=== PATIENT | male | born 1950 | race Caucasian/White ===

== ENCOUNTER → 2018-03-04 | Outpatient (CLI) | payer MEDICARE ==
--- NOTE | 2018-03-05 08:00 | US ---
EXAMINATION TYPE: US carotid duplex BILAT DATE OF EXAM: 03/04/2018 COMPARISON: NONE CLINICAL HISTORY: I65.29 Enlarged right carotid. EXAM MEASUREMENTS: RIGHT: Peak Systolic Velocity (PSV) cm/sec ----- Right CCA: 143.0 ----- Right ICA: 158.8 ----- Right ECA: 162.8 ICA/CCA ratio: 1.1 RIGHT: End Diastole cm/sec ----- Right CCA: 28.8 ----- Right ICA: 26.8 ----- Right ECA: 22.9 LEFT: Peak Systolic Velocity (PSV) cm/sec ----- Left CCA: 114.3 ----- Left ICA: 102.6 ----- Left ECA: 86.6 ICA/CCA ratio: 0.9 LEFT: End Diastole cm/sec ----- Left CCA: 25.6 ----- Left ICA: 27.0 ----- Left ECA: 27.0 VERTEBRALS (direction of flow): Right Vertebral: Antegrade Left Vertebral: Antegrade Rhythm: Arrhythmia on rt side Right neck palpable is posterior to the carotid , this is an elongated hard mass 0.7 x 3.0 x 0.5 cm and non vascular. This appears subcutaneous and somewhat ill-defined. Consider CT neck with contrast for additional evaluation. Intimal thickening is present bilaterally. IMPRESSION: 1. Elevated velocity right internal carotid artery compatible with some moderate stenosis between 50 and 69%. Correlate with patient's clinical symptoms. 2. The palpable hard mass within the right neck is somewhat subcutaneous and hypoechoic. Additional w orkup with contrast CT neck is recommended. Criteria for Assigning % of Stenosis / Diameter reduction (Estimation based on the indirect measurements of the internal carotid artery velocities (ICA PSV). 1. Normal (no stenosis)=ICA PSV < 125 cm/s: ratio < 2.0: ICA EDV<40 cm/s. 2. Less than 50% stenosis=ICA PSV < 125 cm/s: ratio < 2.0: ICA EDV<40 cm/s. 3. 50 to 69% stenosis=ICA PSV of 125 to 230 cm/s: ration 2.0 ? 4.0: ICA EDV 40-100 cm/s. 4. Greater than 70% stenosis to near occlusion= ICA PSV > 230 cm/s: ratio > 4.0: ICA EDV > 100 cm/s. 5. Near occlusion= ICA PSV velocities may be low or undetectable: variable ratio and ICA EDV. 6. Total occlusion=unable to detect flow.
== END | disposition home or self-care (01) ==
LOC: RADUSWWP 15:32
PROVIDERS: ATTEND Family Medicine
DX: I65.23 Occlusion and stenosis of bilateral carotid arteries (principal)
CPT/HCPCS: 93880

== ENCOUNTER → 2018-03-11 | Outpatient (CLI) | payer MEDICARE ==
--- NOTE | 2018-03-12 07:30 | CT ---
EXAMINATION TYPE: CT soft tissue neck w con DATE OF EXAM: 03/11/2018 HISTORY: Right side neck swelling and pain. COMPARISON: Carotid ultrasound March 04, 2018. CT DLP: 465 mGycm. Automated Exposure Control for Dose Reduction was Utilized. TECHNIQUE: CT scan of the neck is performed with IV Contrast, patient injected with 100ml mL of Isov ue M300, axial images are obtained, coronal and sagittal reformatted images are reviewed. FINDINGS: Airway: There is mild biapical pleural/parenchymal scarring. Parotid/submandibular glands: No gross abnormality seen. Carotid/Vascular Structures: There is mild to moderate calcified plaque bilateral carotid bulbs, righ t greater than left without significant stenosis identified. Osseous Structures: There is slight grade 1 retrolisthesis of C3 on C4 with moderate disc space narro wing. There is mild to moderate disc space narrowing and mild spurring C5-C6 level. Other: There are some scattered subcentimeter lymph nodes throughout the neck bilaterally. No suspici ous greater than 1 cm adenopathy is seen. No suspicious finding identified to correlate to recent ult rasound labeled posterior to carotid. Scanning of the right neck shows no suspicious adenopathy mass or fluid collection. Lesion marked on ultrasound favors reactive lymph node still measuring subcentim eter on short axis. IMPRESSION: No suspicious mass or adenopathy identified.
== END | disposition home or self-care (01) ==
LOC: RADCTMAIN 17:14
PROVIDERS: ATTEND Family Medicine
DX: D11.0 Benign neoplasm of parotid gland (principal)
CPT/HCPCS: 82565; 84520; 70491; 36415; Q9967

== ENCOUNTER → 2018-04-09 | Day surgery (SDC) | payer MEDICARE ==
--- NOTE | 2018-04-09 14:50 | US ---
ULTRASOUND GUIDED FNA RIGHT NECK BIOPSY: CLINICAL HISTORY: Right neck mass FINDINGS: Preliminary imaging demonstrated the finding to represent a thrombosed superficial vein. Case discuss ed with the patient deferred biopsy. IMPRESSION: 1. Findings are compatible with a thrombosed superficial vein. No suspicious mass seen.
== END | disposition home or self-care (01) ==
LOC: RADPROMAIN 12:03
PROVIDERS: ATTEND Otolaryngology
DX: R22.1 Localized swelling, mass and lump, neck (principal)
CPT/HCPCS: 76536

== ENCOUNTER → 2018-07-01 | Outpatient (CLI) | payer MEDICARE ==
[2018-07-01 15:20] LABS: Basophils % (A) 0 %; Eosinophils # (A) 0.2 k/uL (0-0.7); Eosinophils % (A) 3 %; HCT 42.2 % (39.0-53.0); HGB 13.7 gm/dL (13.0-17.5); Lymphocytes # (A) 1.3 k/uL (1.0-4.8); Lymphocytes % (A) 25 %; MCH 29.6 pg (25.0-35.0); MCHC 32.4 g/dL (31.0-37.0); MCV 91.1 fL (80.0-100.0); Mean Platelet Volume 6.7; Monocytes # (A) 0.4 k/uL (0-1.0); Monocytes % (A) 7 %; Neutrophils # (A) 3.2 k/uL (1.3-7.7); Neutrophils % (A) 63 %; Platelet Count 228 k/uL (150-450); RBC 4.63 m/uL (4.30-5.90); RDW 13.4 % (11.5-15.5); WBC 5.1 k/uL (3.8-10.6)
[2018-07-01 15:31] LABS: ALT 27 U/L (21-72); AST 30 U/L (17-59); Blood Urea Nitrogen 19 mg/dL (9-20); Calcium 9.3 mg/dL (8.4-10.2)
[2018-07-01 19:35] LABS: Hepatitis B Surface AB- Quant 3.5 mIU/mL; Hepatitis C IgG Antibody Non-Reactive (Non-Reactive)
== END | disposition home or self-care (01) ==
LOC: LABWHC1 14:24
PROVIDERS: ATTEND Physician Assistant Medical
DX: D86.3 Sarcoidosis of skin (principal)
CPT/HCPCS: 36415; 82164; 82310; 82565; 84450; 84460; 84520; 85025; 86706; 86803; 87340

== ENCOUNTER → 2018-07-01 | Outpatient (CLI) | payer MEDICARE ==
--- NOTE | 2018-07-01 14:33 | XR ---
EXAMINATION TYPE: XR chest 2V DATE OF EXAM: 07/01/2018 COMPARISON: NONE TECHNIQUE: PA and lateral views submitted. HISTORY: Sarcoidosis FINDINGS: The lungs are clear and there is no pneumothorax, pleural effusion, or focal pneumonia. Mild promin ence of the right paratracheal stripe. Biapical pleural thickening. Hypertrophic and degenerative zeeshan nge of the spine. No overt failure. IMPRESSION: 1. No acute process. Right paratracheal stripe thickening can sometimes be associated with adenopathy related to sarcoid correlate clinically.
== END ==
LOC: RADXRMAIN 14:03
PROVIDERS: ATTEND Dermatology MOHS-Micrographic Surgery
DX: D86.3 Sarcoidosis of skin (principal)
CPT/HCPCS: 71046

== ENCOUNTER → 2018-08-05 | Outpatient (CLI) | payer MEDICARE | LOC: LABWHC1 11:28 | PROVIDERS: ATTEND Physician Assistant Medical | DX: D86.3 Sarcoidosis of skin (principal) | CPT/HCPCS: 36415; 82955 ==

== ENCOUNTER → 2018-10-02 | Outpatient (CLI) | payer MEDICARE ==
--- NOTE | 2018-10-02 16:21 | XR ---
Right hand HISTORY: Pain and swelling 3 views of the right hand There is marked arthropathy noted in the right hand. Carpometacarpal joint of the first digit shows h ypertrophic change, remodeling with subchondral sclerosis, marginal spurring. Osteoarthritic change a lso present at the interphalangeal joint of the first digit, metacarpophalangeal joints of the second and third digit with marginal spurring, joint space loss. Bone remodeling present at the radial ulna r joint, distal ulna shows negative variance. The lunate shows remodeling. Mild osteoarthritic change present at the distal interphalangeal joints. Soft tissue swelling is noted. IMPRESSION: Osteoarthritis, soft tissue swelling.
== END | disposition home or self-care (01) ==
LOC: RADXRMAIN 14:48
PROVIDERS: ATTEND Family Medicine
DX: M19.041 Primary osteoarthritis, right hand (principal)

== ENCOUNTER → 2019-02-18 | Outpatient (CLI) | payer MEDICARE ==
[2019-02-18 12:53] LABS: Basophils % (A) 1 %; Eosinophils # (A) 0.1 k/uL (0-0.7); Eosinophils % (A) 1 %; HCT 43.7 % (39.0-53.0); HGB 13.9 gm/dL (13.0-17.5); Lymphocytes # (A) 1.2 k/uL (1.0-4.8); Lymphocytes % (A) 20 %; MCH 28.5 pg (25.0-35.0); MCHC 31.9 g/dL (31.0-37.0); MCV 89.6 fL (80.0-100.0); Mean Platelet Volume 6.4; Monocytes # (A) 0.4 k/uL (0-1.0); Monocytes % (A) 8 %; Neutrophils # (A) 3.9 k/uL (1.3-7.7); Neutrophils % (A) 67 %; Platelet Count 242 k/uL (150-450); RBC 4.88 m/uL (4.30-5.90); RDW 13.3 % (11.5-15.5); WBC 5.8 k/uL (3.8-10.6)
[2019-02-18 16:52] LABS: Hepatitis B Surface AB- Quant 3.5 mIU/mL; Hepatitis C IgG Antibody Non-Reactive (Non-Reactive)
== END | disposition home or self-care (01) ==
LOC: LABWHC1 12:18
PROVIDERS: ATTEND Physician Assistant Medical
DX: D86.3 Sarcoidosis of skin (principal)
CPT/HCPCS: 36415; 82565; 84450; 84460; 84520; 85025; 86706; 86803; 87340

== ENCOUNTER → 2019-10-20 | Outpatient (CLI) | payer MEDICARE ==
[2019-10-20 14:06] LABS: Basophils # (A) 0.1 k/uL (0-0.2); Basophils % (A) 2 %; Eosinophils # (A) 0.1 k/uL (0-0.7); Eosinophils % (A) 1 %; HCT 47.6 % (39.0-53.0); HGB 15.2 gm/dL (13.0-17.5); Lymphocytes # (A) 1.4 k/uL (1.0-4.8); Lymphocytes % (A) 22 %; MCH 30.7 pg (25.0-35.0); MCHC 31.8 g/dL (31.0-37.0); MCV 96.4 fL (80.0-100.0); Mean Platelet Volume 7.8; Monocytes # (A) 0.4 k/uL (0-1.0); Monocytes % (A) 6 %; Neutrophils # (A) 4.2 k/uL (1.3-7.7); Neutrophils % (A) 66 %; Platelet Count 240 k/uL (150-450); RBC 4.94 m/uL (4.30-5.90); WBC 6.4 k/uL (3.8-10.6)
[2019-10-20 18:38] LABS: African American GFR (CKD) 88.6 (60.0-200.0); Non-African American GFR(CKD) 76.5 (60.0-200.0)
== END | disposition home or self-care (01) ==
LOC: LABWHC1 12:43
PROVIDERS: ATTEND Physician Assistant Medical
DX: D86.3 Sarcoidosis of skin (principal)
CPT/HCPCS: 36415; 82565; 84450; 84460; 84520; 85025

== ENCOUNTER 2020-06-28 17:26 | Emergency (ER) | payer MEDICARE ==
[2020-06-28 17:55] VITALS: RESP 18; TEMP 98.2
[2020-06-28] MEDS ORDERED: WATER FOR IRRIG, STERILE 1,000 ML BTL IRRIGATION ONE (19:17)
[2020-06-28] MEDS ORDERED: BACITRACIN OINT 1 EACH PACKET TOPICAL ONE (19:17)
[2020-06-28] MEDS ORDERED: DIPH,PERTUS(ACELL)TETVAC-LF 0.5 ML VIAL IM ONE (19:17)
[2020-06-28] MEDS ORDERED: CEPHALEXIN 500MG STARTER PACK 4 CAP BTL PO STA (19:20)
--- NOTE | 2020-06-28 19:22 | ED ---
Upper Extremity HPI - General Chief Complaint: Extremity Injury, Upper Stated Complaint: Hand Lac Time Seen by Provider: 06/28/20 19:09 Source: patient Mode of arrival: ambulatory Limitations: no limitations - History of Present Illness Initial Comments: 69-year-old male patient presents to the emergency department for evaluation of wound to the right hand. Patient states that he was working outside with gloves on today and was pounding metal rods into the ground. Patient states when he took his clothes off he noticed that he had a puncture wound to the right hand. States that the area was bleeding initially when he was able to get it to stop. He denies any significant pain or discomfort. States that he has a history of arthritis and neuropathy he generally has numbness and tingling to the hand this is not worse. He denies any other injuries. He is unsure when his last tetanus vaccine was given. States this occurred a little over 3 hours ago. Patient denies any headache, neck pain, back pain, chest pain, shortness of breath, dizziness, weakness, abdominal pain, nausea, vomiting, or difficulties with bowel movements or urination. - Related Data Home Medications Medication Instructions Recorded Confirmed Aspirin PO DAILY 04/07/18 Previous Rx's Medication Instructions Recorded Cephalexin [Keflex] 500 mg PO BID #10 cap 06/28/20 Allergies Allergy/AdvReac Type Severity Reaction Status Date / Time No Known Allergies Allergy Verified 06/28/20 17:51 Review of Systems ROS Statement: Those systems with pertinent positive or pertinent negative responses have been documented in the HPI. ROS Other: All systems not noted in ROS Statement are negative. Past Medical History Past Medical History: Osteoarthritis (OA) Additional Past Medical History / Comment(s): sarcoidosis History of Any Multi-Drug Resistant Organisms: None Reported Past Surgical History: Hernia Repair Additional Past Surgical History / Comment(s): Bilateral Hernia Repair Past Anesthesia/Blood Transfusion Reactions: No Reported Reaction Past Psychological History: No Psychological Hx Reported Smoking Status: Current every day smoker Past Alcohol Use History: None Reported Past Drug Use History: None Reported - Past Family History Father Family Medical History: Congestive Heart Failure (CHF) Mother Family Medical History: Congestive Heart Failure (CHF) General Exam Limitations: no limitations General appearance: alert, in no apparent distress, other (This is a well- developed, well-nourished adult male patient in no acute distress. Vital signs upon presentation temperature 98.2F, pulse 80, respirations 18, blood pressure 122/75, pulse ox 100% on room air.) Respiratory exam: Present: normal lung sounds bilaterally. Absent: respiratory distress, wheezes, rales, rhonchi, stridor Cardiovascular Exam: Present: regular rate, normal rhythm, normal heart sounds. Absent: systolic murmur, diastolic murmur, rubs, gallop, clicks Extremities exam: Present: full ROM, normal capillary refill, other (There is a 1 cm puncture wound noted to the webbing between the right thumb and forefinger. No active bleeding noted. Skin is otherwise pink, warm, dry. Cap refills less than 3 seconds. Radial pulses 2+ and equal bilaterally.). Absent: normal inspection, tenderness, pedal edema, joint swelling, calf tenderness Neurological exam: Present: alert, oriented X3, CN II-XII intact Psychiatric exam: Present: normal affect, normal mood Skin exam: Present: warm, dry, intact, normal color. Absent: rash Course Vital Signs 06/28/20 06/28/20 17:53 20:34 Temperature 98.2 F 98.2 F Pulse Rate 80 76 Respiratory 18 18 Rate Blood Pressure 122/75 121/88 O2 Sat by Pulse 100 100 Oximetry Procedures - Laceration Laceration #1 Consent Obtained: verbal consent Indication: other (Puncture wound) Size (cm): 1 Pre-repair: irrigated extensively Patient Tolerated Procedure: well, no complications Medical Decision Making - Medical Decision Making 69-year-old male patient presented to the emergency department today for evaluation of wound to the right hand. Physical examination revealed a puncture wound to the webbing between the thumb and forefinger on the right hand. X-ray was obtained and showed no evidence for foreign body or bony abnormality. Wound was irrigated. Given the nature of the puncture wound plus history of sarcoidosis with the daily methotrexate we will leave the wound open for secondary healing. He'll be started on Keflex. He was given a tetanus vaccine. He is instructed to follow-up for further evaluation in 1-2 days with his primary care physician. Return parameters including signs or symptoms of infection were discussed in detail. He verbalizes understanding and agrees with this plan. - Radiology Data Radiology results: report reviewed, image reviewed 4 views of the right hand are obtained. Report was reviewed in its entirety. Impression by Dr. Parham shows soft tissue air consistent with laceration. Osteoarthritis as above. No fracture seen. Disposition Clinical Impression: Puncture wound of right hand Disposition: HOME SELF-CARE Condition: Good Instructions (If sedation given, give patient instructions): Puncture Wound (ED) Additional Instructions: Keep area clean and dry. Keep covered. Rest hand for the next 7-10 days to aid with healing. Complete antibiotic prescription and full. Follow-up through primary care physician for recheck in 1-2 days. Return to the emergency department immediately for any new, worsening, or concerning symptoms. Prescriptions: Cephalexin [Keflex] 500 mg PO BID #10 cap Is patient prescribed a controlled substance at d/c from ED?: No Referrals: Sean Garcia DO [Primary Care Provider] - 1-2 days Time of Disposition: 20:10
[2020-06-28] MEDS: LIDOCAINE 1% INJ 10MG/ML (20 ML MDV) SQ ONE ×2 (19:26→20:29)
--- NOTE | 2020-06-28 19:53 | XR ---
EXAMINATION TYPE: XR hand complete RT DATE OF EXAM: 06/28/2020 COMPARISON: 10/02/2018 HISTORY: Laceration between first and second digit TECHNIQUE: 4 views FINDINGS: There is narrowing of the second and third MP joint spaces with spurring. There is moderate narrowing and spurring at the first carpometacarpal joint. There is soft tissue air around the first metacarpal. I see no fracture nor dislocation. There are no erosions. IMPRESSION: Soft tissue air consistent with laceration. Osteoarthritis as above. No fracture seen.
[2020-06-28 20:35] VITALS: BP 121/88; PULSE 76
== END 2020-06-28 20:36 | disposition home or self-care (01) ==
LOC: EC 17:26
DX: S61.411A Laceration without foreign body of right hand, initial encounter (principal); S61.431A Puncture wound without foreign body of right hand, initial encounter; D86.9 Sarcoidosis, unspecified; Z23 Encounter for immunization; F17.200 Nicotine dependence, unspecified, uncomplicated; W26.8XXA Contact with other sharp object(s), not elsewhere classified, initial encounter; Y93.89 Activity, other specified; Y92.009 Unspecified place in unspecified non-institutional (private) residence as the place of occurrence of the external cause
CPT/HCPCS: 12001; 90471; 90715; 99283

== ENCOUNTER → 2020-07-15 | Outpatient (CLI) | payer MEDICARE ==
[2020-07-15 15:31] LABS: Basophils % (A) 1 %; Eosinophils # (A) 0.1 k/uL (0-0.7); Eosinophils % (A) 1 %; HGB 13.4 gm/dL (13.0-17.5); Lymphocytes # (A) 1.2 k/uL (1.0-4.8); Lymphocytes % (A) 18 %; MCH 31.7 pg (25.0-35.0); Mean Platelet Volume 6.9; Monocytes # (A) 0.5 k/uL (0-1.0); Monocytes % (A) 8 %; Neutrophils # (A) 4.6 k/uL (1.3-7.7); Neutrophils % (A) 70 %; Platelet Count 211 k/uL (150-450); RBC 4.24 m/uL (4.30-5.90); RDW 14.4 % (11.5-15.5); WBC 6.5 k/uL (3.8-10.6)
[2020-07-16 01:18] LABS: Non-African American GFR(CKD) 75.9 (60.0-200.0)
== END | disposition home or self-care (01) ==
LOC: LABWHC1 13:43
PROVIDERS: ATTEND Physician Assistant Medical
DX: D86.3 Sarcoidosis of skin (principal)
CPT/HCPCS: 36415; 82565; 84450; 84460; 84520; 85025

== ENCOUNTER 2020-12-31 | Emergency (ER) | payer MEDICARE ==
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
== END 2020-12-31 20:55 | disposition home or self-care (01) ==
CPT/HCPCS: 99283

== ENCOUNTER → 2021-03-06 | Outpatient (CLI) | payer MEDICARE ==
--- NOTE | 2021-03-07 08:34 | US ---
EXAMINATION TYPE: US venous doppler duplex LE LT DATE OF EXAM: 03/06/2021 4:22 PM COMPARISON: NONE CLINICAL HISTORY: M79.662 Pain in left lower leg. left knee pain, hot and swollen foot SIDE PERFORMED: Left TECHNIQUE: The lower extremity deep venous system is examined utilizing real time linear array sonog jorge with graded compression, doppler sonography and color-flow sonography. VESSELS IMAGED: Common Femoral Vein Deep Femoral Vein Greater Saphenous Vein * Femoral Vein Popliteal Vein Proximal Calf Veins (* superficial vessels) Left Leg: Negative for DVT 4.2cm complex popliteal fossa cyst seen IMPRESSION: Left Leg: Negative for DVT 4.2cm complex popliteal fossa cyst seen
== END | disposition home or self-care (01) ==
LOC: RADUSWWP 16:03
PROVIDERS: ATTEND Family Medicine
DX: M71.22 Synovial cyst of popliteal space [Baker], left knee (principal); M79.662 Pain in left lower leg

== ENCOUNTER → 2021-06-03 | Outpatient (CLI) | payer BC, MEDICARE ==
--- NOTE | 2021-06-03 18:07 | MR ---
EXAMINATION TYPE: MR knee LT wo con DATE OF EXAM: 06/03/2021 COMPARISON: None HISTORY: Left knee pain. Multiplanar multiecho imaging of the left knee without contrast. There is moderate knee joint effusion. The anterior and posterior cruciate ligaments are intact. The collateral ligaments appear intact. There is 4 x 1.5 cm popliteal cyst. There is horizontal tear through the posterior horn medial meniscus extending to the inferior surface . There is small horizontal tear also the anterior horn medial meniscus. There is horizontal tear through the posterior horn of the lateral meniscus. The patella is intact. J oint spaces are fairly normal. There is some mild edema in the medial femoral condyle on the posterio r medial aspect. This is consistent with a mild bone bruise. I see no fracture line. There is also in creased signal in the intercondylar proximal tibia consistent with bone bruise that measures 1.5 cm. IMPRESSION: Horizontal tears of the medial and lateral menisci in the posterior horns. Moderate knee joint effusion. Popliteal cyst. Bone bruise involving the intercondylar proximal tibia and also the medial femoral condyle. No fractu re seen.
== END | disposition home or self-care (01) ==
LOC: RADMRIMAIN 08:57
PROVIDERS: ATTEND Orthopaedic Surgery
DX: M23.322 Other meniscus derangements, posterior horn of medial meniscus, left knee (principal); M23.352 Other meniscus derangements, posterior horn of lateral meniscus, left knee; M71.22 Synovial cyst of popliteal space [Baker], left knee; S80.02XA Contusion of left knee, initial encounter

== ENCOUNTER → 2021-08-16 | Outpatient (CLI) | payer MEDICARE ==
[2021-08-16 12:10] LABS: African American GFR (CKD) >90 (>60 ml/min/1.73 sqM); Blood Urea Nitrogen 21 mg/dL (9-20); Non-African American GFR(CKD) 83 (>60 ml/min/1.73 sqM)
--- NOTE | 2021-08-16 12:46 | CT ---
EXAMINATION TYPE: CT chest w con DATE OF EXAM: 08/16/2021 COMPARISON: none HISTORY: sarcoidosis CT DLP: 594 mGycm Automated exposure control for dose reduction was used. CONTRAST: CT scan of the chest is performed with IV Contrast, patient injected with 100 mL of Isovue 300. FINDINGS: LUNGS: The lungs are grossly clear, there is no concerning parenchymal mass or nodule identified. T here is no pleural effusion or pneumothorax seen. The tracheobronchial tree is patent. MEDIASTINUM: There are no greater than 1 cm hilar or mediastinal lymph nodes. No pericardial effusi on is seen. Thoracic aorta is of normal caliber. The heart is not enlarged. UPPER ABDOMEN: No significant abnormality appreciated. OTHER: No additional significant abnormality is seen. IMPRESSION: Unremarkable study
== END | disposition home or self-care (01) ==
LOC: RADCTMAIN 11:05
PROVIDERS: ATTEND Psychiatry & Neurology Neurology
DX: D86.89 Sarcoidosis of other sites (principal)
CPT/HCPCS: 82565; 84520; 71260; Q9967

== ENCOUNTER 2021-08-24 10:13 | Day surgery (SDC) | payer MEDICARE ==
[2021-08-22 11:03] VITALS: BMI 23.1
--- NOTE | 2021-08-23 17:34 | HP ---
HISTORY AND PHYSICAL DATE OF SURGERY: 08/24/2021 Bc Frias is a 71-year-old patient seen with progressive left knee pain. We discussed options for treatment. He elected to proceed with left knee arthroscopy. Consent was obtained. Clearance was provided by Dr. Arzate. PAST MEDICAL HISTORY: Atrial fibrillation, hypertension, anxiety. PAST SURGICAL HISTORY: Cataract surgery, herniorrhaphy. DAILY MEDICATIONS: Methotrexate, metoprolol, Eliquis. ALLERGIES: NONE. SOCIAL HISTORY: He denies tobacco use. PHYSICAL EVALUATION OF THE LEFT KNEE: Range of motion is negative 2/3 to 115 degrees. Moderate effusion. Tenderness along the lateral joint line. Positive lateral Sharla's. Plus one Laci. Otherwise ligaments stable. Distal neurovascular exam is intact. Hip rotation without pain. Left knee radiographs revealed mild osteoarthritis. MRI left knee revealed medial and lateral meniscal tear as well as an effusion. IMPRESSION: 1. Internal derangement of left knee with medial and lateral meniscal tears. 2. Hypertension. 3. Atrial fibrillation. PLAN: Left knee arthroscopy with partial meniscectomy and debridement. MMODL / IJN: [id number] /
[~2021-08-24 10:13] MED LIST: HYDROmorphone 0.5 MG/0.5 ML SYRINGE IVP PRN; LACTATED RINGERS 1,000 ML IV SCH; LIDOCAINE 1% (10MG/ML) FOR IV START INTRADERMA PRN; ONDANSETRON 4 MG/2 ML VIAL IVP ONE; ONDANSETRON 4 MG/2 ML VIAL IVP PRN
[2021-08-24 10:47] VITALS: RESP 16
[2021-08-24] MEDS ORDERED: DEXAMETHASONE SOD PHOSPHATE 4 MG/ML 1 ML VIAL PO ONE (11:03)
[2021-08-24] MEDS ORDERED: ONDANSETRON 4 MG/2 ML VIAL IVP ONE (11:04)
[2021-08-24] MEDS ORDERED: MIDAZOLAM 2 MG/2 ML VIAL ONE (11:27)
[2021-08-24] MEDS ORDERED: LIDOCAINE 1% INJ 10MG/ML (20 ML MDV) ONE (11:27)
[2021-08-24] MEDS ORDERED: PHENYLEPHRINE-0.9% NACL SYG 1,000 MCG/10 ML SYRINGE ONE (11:27)
[2021-08-24] MEDS ORDERED: SUCCINYLCHOLINE CHLORIDE 100 MG/5 ML SYR IV ONE (11:27)
[2021-08-24] MEDS ORDERED: .fentaNYL (PF) 50 MCG/ML 2 ML AMP ONE (11:27)
[2021-08-24] MEDS ORDERED: PROPOFOL 10 MG/ML 20 ML VIAL IV ONE (11:27)
[2021-08-24] MEDS ORDERED: BUPIVACAINE (PF) 0.25% 30 ML VIAL SQ ONE ×2 (11:40→12:03)
--- NOTE | 2021-08-24 12:17 | P.OP ---
Date of Procedure: 08/24/21 Preoperative Diagnosis: Internal derangement left knee Postoperative Diagnosis: 1. Tear lateral meniscus left knee 2. Grade 4 chondromalacia medial femoral condyle left knee 3. Reactive synovitis medial, lateral and suprapatellar compartments left knee Procedure(s) Performed: 1. Arthroscopic partial lateral meniscectomy left knee 2. Arthroscopic chondroplasty medial femoral condyle left knee 3. Arthroscopic microfracture medial femoral condyle left knee 4. Arthroscopic partial synovectomy medial, lateral and suprapatellar compartments left knee Anesthesia: DRUA, local Surgeon: Benja Leahy Estimated Blood Loss (ml): 5 Pathology: none sent Condition: stable Disposition: PACU Indications for Procedure: 71-year-old patient seen with progressive left knee pain. After treatment options were discussed, he elected to proceed with arthroscopy. Operative Findings: See description of procedure Description of Procedure: Patient was taken to the operative suite. Patient underwent a general anesthetic by the department of anesthesia. Patient was given preoperative antibiotics. The left lower extremity was placed in a well-padded arthroscopic leg borges. The left leg was prepped and draped in the normal sterile orthopedic fashion. A lateral parapatellar and suprapatellar incision was made. Trochars were inserted. Arthroscopy was initiated. Suprapatellar pouch revealed diffuse thick reactive synovitis. The patellofemoral joint appeared to articulate congruently. There with grade 1 chondromalacia of the patella with no significant tears present. The scope was guided into the medial gutter. No loose bodies or plica were identified. The scope was then guided into the medial compartment. A medial parapatellar incision was made. Trocar inserted followed by probe. Medial meniscus was probed and found to be stable. There were some grade 3/4 chondromalacia changes central weightbearing surface medial femoral condyle with osteochondral fractures present. There was thick reactive synovitis present. I performed a partial synovectomy. I performed a chondroplasty of the medial femoral condyle. There was no obvious area of exposed bone medial femoral condyle. I performed a microfracture to area penetrating the bone with resultant bleeding at the microfracture site. The residual osteochondral surface was stable. There was good decompression synovitis. Scope and probe were then guided into the intercondylar notch. Cruciates were identified, probed and found to be stable. The scope and probe were then guided into lateral compartment. There was a radial tear posterior horn lateral meniscus. There was grade 1 chondral moist changes lateral compartment with no tears. There was thick reactive synovitis anteriorly. I performed a partial lateral meniscectomy. I performed a partial synovectomy. The residual meniscus was probed and found to be stable. There was good decompression synovitis. The scope was in guided back into the suprapatellar compartment. I introduced a motorized shaver into the super patellar compartment. I debrided some piecemeal fragments of meniscus I encountered. I performed a partial synovectomy. Shaver was removed. There was good de compression synovitis. I took one more look around the entire knee, no residual debris. Instruments were now removed from the joint. The joint was infiltrated with .25% Marcaine. Steri-Strips were applied to the portal sites. Sterile dressings were applied. The patient was placed into a BALDO hose. No tourniquet was utilized. The patient was awakened, transferred to a bed and taken to recovery stable satisfactory condition.
[2021-08-24 12:21] VITALS: TEMP 97.2
[2021-08-24 13:29] VITALS: BP 135/82; PULSE 60
== END 2021-08-24 14:07 | disposition home or self-care (01) ==
LOC: OR 10:13
PROVIDERS: ATTEND Orthopaedic Surgery
DX: M23.201 Derangement of unspecified lateral meniscus due to old tear or injury, left knee (principal); M94.262 Chondromalacia, left knee; M65.862 Other synovitis and tenosynovitis, left lower leg; I48.91 Unspecified atrial fibrillation; I10 Essential (primary) hypertension; F41.9 Anxiety disorder, unspecified; D86.9 Sarcoidosis, unspecified; F17.200 Nicotine dependence, unspecified, uncomplicated; Z98.49 Cataract extraction status, unspecified eye; Z98.890 Other specified postprocedural states; Z79.01 Long term (current) use of anticoagulants; Z79.899 Other long term (current) drug therapy
CPT/HCPCS: 29881; 29879; J2250; J1100; J0690; J2405; J2001; J3010; J2370; J0330; J2704

== ENCOUNTER → 2021-09-06 | Outpatient (CLI) | payer MEDICARE ==
--- NOTE | 2021-09-06 19:11 | MR ---
EXAMINATION TYPE: MR brain/cspine wo/w DATE OF EXAM: 09/06/2021 COMPARISON: NONE HISTORY: 71-year-old male with neurosarcoidosis,- weakness in hands only TECHNIQUE: Multiplanar, multisequence images of the brain and brainstem were acquired before and aft er administration of 8cc mL IV Gadavist. Diffusion weighted imaging is performed. Subsequent multip lanar, multisequence imaging of the cervical spine before and after IV contrast. FINDINGS: BRAIN: No evidence for acute infarction, hemorrhage, mass, mass effect, midline shift, herniation, effacemen t of basal cisterns, or extra-axial fluid collection. Mild age-related cerebral cortical volume loss. No hydrocephalus. Major intracranial flow voids are intact. T2/FLAIR weighted sequences show no white matter signal abnormality. Midline structures demonstrate normal morphology. The craniocervical junction is normal. Post contrast images demonstrate no evidence of pathologic enhancement. No abnormal dural/leptomening eal enhancement. No parenchymal enhancing lesions. Dural venous sinuses are patent. Mild mucosal thickening ethmoid air cells. Globes are intact. CERVICAL SPINE: There is prominent red marrow that can be seen with anemia, obesity, smoking, chronic disease. No craniocervical junction abnormality, predental space widening, or prevertebral soft tissue swellin g. Multilevel facet and uncovertebral joint arthropathy. Mild degenerative disc desiccation. Disc osteophyte complexes predominantly at C5-C6. Multilevel liga mentum flavum thickening. Trace 1 retrolisthesis C3-C4. At C2-C3, there is facet arthropathy with mild bilateral neural foraminal narrowing. No spinal canal stenosis. At C3-C4, disc osteophyte complex with ligamentum flavum thickening and hypertrophic facet and uncove rtebral joint arthropathy. Changes result in severe right and moderate left neural foraminal stenosis . There is grade 1 retrolisthesis and mild overall narrowing of the spinal canal. At C4-C5, mild ligamentum flavum thickening. Hypertrophic facet arthropathy. Mild bilateral neural fo raminal narrowing. No spinal canal stenosis. At C5-C6, the disc osteophyte complex and ligamentum flavum thickening contributes to mild narrowing of the spinal canal. There is hypertrophic facet and uncovertebral joint arthropathy with a mild to m oderate bilateral neural foraminal stenosis. At C6-C7, ligamentum flavum thickening. No significant spinal canal stenosis. Facet arthropathy. Mild left neural foraminal stenosis. At C7-T1, no significant canal or foraminal stenosis. Normal course and signal intensity of the cervical spinal cord. No abnormal enhancement within the spinal canal. COMBINED IMPRESSION: BRAIN: 1. No acute intracranial alveolar enhancing intracranial lesion seen. No specific MRI findings of liya rosarcoidosis. 2. Mild age-related cerebral cortical volume loss. 3. Mild chronic ethmoid sinus disease. CERVICAL SPINE: 4. Mild multilevel degenerative disc disease but with multilevel hypertrophic facet and uncovertebral joint arthropathy and ligamentum flavum thickening. Degenerative grade 1 retrolisthesis C3-C4. 5. Changes result in mild overall narrowing of the spinal canal at C3-C4 and C5-C6. No cord compressi on or irma canal compromise. 6. Variable neuroforaminal stenoses as outlined above, severe on the right at C3-C4. 7. No abnormal enhancement within the spinal canal to suggest neurosarcoidosis. .
== END | disposition home or self-care (01) ==
LOC: RADMRIMAIN 11:59
PROVIDERS: ATTEND Psychiatry & Neurology Neurology
DX: R93.0 Abnormal findings on diagnostic imaging of skull and head, not elsewhere classified (principal); M43.12 Spondylolisthesis, cervical region; M48.02 Spinal stenosis, cervical region; M99.71 Connective tissue and disc stenosis of intervertebral foramina of cervical region; M50.30 Other cervical disc degeneration, unspecified cervical region; J32.2 Chronic ethmoidal sinusitis
CPT/HCPCS: 70553; 72156; A9585

== ENCOUNTER → 2021-10-10 | Outpatient (CLI) | payer MEDICARE ==
--- NOTE | 2021-10-10 14:50 | US ---
EXAMINATION TYPE: US carotid duplex BILAT DATE OF EXAM: 10/10/2021 COMPARISON: 03/04/2018 CLINICAL HISTORY: 71-year-old male G45.9 TIA, I65.29 STENOSIS. TECHNIQUE: Carotid duplex ultrasound examination. Indirect Doppler criteria was utilized. FINDINGS: EXAM MEASUREMENTS: RIGHT: Peak Systolic Velocity (PSV) cm/sec ----- Right CCA: 101.6 ----- Right ICA: 100.2 ----- Right ECA: 110.3 ICA/CCA ratio: 1.0 RIGHT: End Diastole cm/sec ----- Right CCA: 28.9 ----- Right ICA: 27.5 ----- Right ECA: 26.0 LEFT: Peak Systolic Velocity (PSV) cm/sec ----- Left CCA: 84.0 ----- Left ICA: 92.9 ----- Left ECA: 110.3 ICA/CCA ratio: 1.1 LEFT: End Diastole cm/sec ----- Left CCA: 20.6 ----- Left ICA: 36.2 ----- Left ECA: 24.6 VERTEBRALS (direction of flow): Right Vertebral: Antegrade Left Vertebral: Antegrade Rhythm: Normal Entertainment Dancer notes: No significant stenosis seen; bilateral mild to moderate plaque formation. IMPRESSION: Mild to moderate atherosclerotic change at the bifurcations. No hemodynamically significant internal carotid artery stenosis on either side. Criteria for Assigning % of Stenosis / Diameter reduction (Estimation based on the indirect measurements of the internal carotid artery velocities (ICA PSV). 1. Normal (no stenosis)=ICA PSV < 125 cm/s: ratio < 2.0: ICA EDV<40 cm/s. 2. Less than 50% stenosis=ICA PSV < 125 cm/s: ratio < 2.0: ICA EDV<40 cm/s. 3. 50 to 69% stenosis=ICA PSV of 125 to 230 cm/s: ration 2.0 ? 4.0: ICA EDV 40-100 cm/s. 4. Greater than 70% stenosis to near occlusion= ICA PSV > 230 cm/s: ratio > 4.0: ICA EDV > 100 cm/s. 5. Near occlusion= ICA PSV velocities may be low or undetectable: variable ratio and ICA EDV. 6. Total occlusion=unable to detect flow.
== END | disposition home or self-care (01) ==
LOC: RADUSWWP 10:50
PROVIDERS: ATTEND Psychiatry & Neurology Neurology
DX: I65.23 Occlusion and stenosis of bilateral carotid arteries (principal)
CPT/HCPCS: 93880

== ENCOUNTER → 2021-12-29 | Outpatient (CLI) | payer MEDICARE ==
--- NOTE | 2021-12-29 11:42 | CT ---
EXAMINATION TYPE: CT chest w con DATE OF EXAM: 12/29/2021 COMPARISON: 08/16/2021 HISTORY: Sarcoidosis CT DLP: 329.10 mGycm Automated exposure control for dose reduction was used. TECHNIQUE: CT scan of the chest is performed with IV Contrast, patient injected with 100 mL of Isovue 300. MIP Images are created on CT scanner and reviewed. 3D reconstructed images are created on an independent workstation and reviewed. FINDINGS: LUNGS: The lungs are grossly clear, there is no concerning parenchymal mass or nodule identified. T here is no pleural effusion or pneumothorax seen. The tracheobronchial tree is patent. Biapical pleu ral thickening. Very mild emphysematous changes seen. MEDIASTINUM: There are no greater than 1 cm hilar or mediastinal lymph nodes. No pericardial effusi on is seen. Atherosclerotic change aorta. Coronary artery calcification noted. OTHER: Hypertrophic and degenerative changes of the spine. IMPRESSION: 1. No acute intrathoracic process. No pathologic adenopathy.
== END | disposition home or self-care (01) ==
LOC: RADCTMAIN 07:50
PROVIDERS: ATTEND Psychiatry & Neurology Neurology
DX: D86.89 Sarcoidosis of other sites (principal)
CPT/HCPCS: 71260; Q9967

== ENCOUNTER → 2022-03-29 | Outpatient (CLI) | payer MEDICARE ==
[2022-03-29 18:23] LABS: Basophils # (A) 0.03 X 10*3/uL (0.00-0.10); Basophils % (A) 0.8 %; Eosinophils # (A) 0.06 X 10*3/uL (0.04-0.35); Eosinophils % (A) 1.5 %; HCT 42.6 % (39.6-50.0); HGB 13.4 g/dL (13.0-17.0); Immature Grans, Automated 0.3 %; Lymphocytes # (A) 0.96 X 10*3/uL (0.90-5.00); Lymphocytes % (A) 24.1 %; MCH 30.8 pg (27.0-32.0); MCHC 31.5 g/dL (32.0-37.0); MCV 97.9 fL (80.0-97.0); Mean Platelet Volume 11.2 fL (9.5-12.2); Monocytes # (A) 0.38 X 10*3/uL (0.20-1.00); Monocytes % (A) 9.5 %; NRBC Per 100 WBC 0 /100 WBCS (0.0-0.0); Neutrophils # (A) 2.54 X 10*3/uL (1.80-7.70); Neutrophils % (A) 63.8 %; Platelet Count 232 X 10*3/uL (140-440); RBC 4.35 X 10*6/uL (4.40-5.60); RDW 14.4 % (11.5-14.5); WBC 3.98 X 10*3/uL (4.50-10.00)
[2022-03-29 18:36] LABS: Erythrocyte Sedimentation Rate 8 mm/Hr (0-20)
[2022-03-29 18:38] LABS: ALT 9 U/L (10-49); AST 20 U/L (14-35); African American GFR (CKD) 99.2 (60.0-200.0); Albumin 4.4 g/dL (3.8-4.9); Albumin/Globulin Ratio 1.52 (1.60-3.17); Alkaline Phosphatase 63 U/L (41-126); BUN/Creat Ratio 16.22 Ratio (12.00-20.00); Blood Urea Nitrogen 14.6 mg/dL (9.0-27.0); C Reactive Protein <0.30 mg/dL (0.00-0.80); Calcium 9.5 mg/dL (8.7-10.3); Carbon Dioxide 25.5 mmol/L (20.0-27.5); Chloride 105 mmol/L (96-109); Globulin 2.9 g/dL (1.6-3.3); Glucose 93 mg/dL (70-110); Non-African American GFR(CKD) 85.6 (60.0-200.0); Potassium 4.6 mmol/L (3.5-5.5); Sodium 138 mmol/L (135-145); Total Protein 7.3 g/dL (6.2-8.2)
[2022-03-29 18:53] LABS: Hepatitis B Surface Antigen Nonreactive (Nonreactive); Hepatitis C IgG Antibody Nonreactive (Nonreactive); Protein, Total 7.2 g/dL (6.2-8.2)
[2022-03-29 18:58] LABS: Hepatitis A Antibody IgM Nonreactive (Nonreactive); Hepatitis B Core IgM Nonreactive (Nonreactive); Hepatitis B Surface Antigen Nonreactive (Nonreactive); Hepatitis C IgG Antibody Nonreactive (Nonreactive)
[2022-03-29 19:03] LABS: Immunoglobulin E 4.81 IU/mL (0.00-114.00)
[2022-03-29 19:06] LABS: Hepatitis B Surface AB- Quant 3.5 mIU/mL; Hepatitis B Surface Antibody Nonreactive (Nonreactive)
[2022-03-30 10:24] LABS: Angiotensin-1 Converting Enz. 29 U/L (8-52)
[2022-03-30 15:34] LABS: Anti-Smith Ab Interp NEGATIVE (NEGATIVE); Cyclic Citrull Pep IgG Unit <0.5 U/mL; Cyclic Citrullinated Pep IgG NEGATIVE (NEGATIVE)
[2022-03-30 20:05] LABS: HIV 2 AB Non-Reactive (Non-Reactive); HIV AB P24 Non-Reactive (Non-Reactive); HIV P24 AG Non-Reactive (Non-Reactive)
== END | disposition home or self-care (01) ==
LOC: LABWHC1 11:09
PROVIDERS: ATTEND Internal Medicine Rheumatology
DX: M06.4 Inflammatory polyarthropathy (principal); G56.03 Carpal tunnel syndrome, bilateral upper limbs; R21 Rash and other nonspecific skin eruption
CPT/HCPCS: 36415; 80053; 80074; 82164; 82784; 82785; 84165; 85025; 85652; 86038; 86140; 86200; 86235; 86334; 86480; 86704; 86706; 86780; 86803; 87340; 87390

== ENCOUNTER → 2022-07-19 | Outpatient (CLI) | payer MEDICARE ==
[2022-07-19 23:42] LABS: African American GFR (CKD) 88.6 (60.0-200.0); Anion Gap 9.1 mmol/L (10.00-18.00); BUN/Creat Ratio 14.45 Ratio (12.00-20.00); Blood Urea Nitrogen 14.2 mg/dL (9.0-27.0); Calcium 9.4 mg/dL (8.7-10.3); Carbon Dioxide 26.5 mmol/L (20.0-27.5); Non-African American GFR(CKD) 76.4 (60.0-200.0); Phosphorus 2.8 mg/dL (2.4-5.1); Potassium 4.4 mmol/L (3.5-5.5)
--- NOTE | 2022-07-20 13:04 | MR ---
EXAMINATION TYPE: MR brain/cspine wo/w DATE OF EXAM: 07/19/2022 COMPARISON: 09/06/2021 HISTORY: Neurosarcoiditis - weakness in hands CONTRAST: Performed utilizing 8 mL intravenous Gadavist gadolinium contrast. TECHNIQUE: Multiplanar, multiecho imaging on a 3.0 Chloe magnet is performed through the brain. Stud y is performed within 24 hours of arrival to the hospital. The craniovertebral junction is normal. The pituitary is normal. Suprasellar cistern appears normal . Diffusion-weighted imaging is performed. No abnormal hyperintensity is present to suggest an acute i ntracranial infarct or acute ischemic change. Signal within the brain appears normal Ventricles and sulci are appropriate for the patient age. IMPRESSIONS: 1. No suspicious signal change or enhancing lesions are evident to suggest neurosarcoidosis. EXAMINATION TYPE: MR brain/cspine wo/w DATE OF EXAM: 07/19/2022 COMPARISON: 09/06/2021 HISTORY: Neurosarcoiditis - weakness in hands CONTRAST: Performed utilizing 8 mL intravenous Gadavist gadolinium contrast. TECHNIQUE: Multiplanar multiecho imaging on a 3.0 Chloe magnet is performed through the cervical spin e. FINDINGS: The craniovertebral junction is normal. Vertebral body alignment is normal. No enhancing lesions are evident. Spinal cord maintains normal signal without enhancement. There is some increase d signal posterior to a disc herniation at C5-6, see below. C7-T1: No focal disc herniation or significant disc bulge is evident. No spinal canal stenosis or n eural foraminal stenosis is present. C6-7: No focal disc herniation or significant disc bulge is evident. No spinal canal stenosis or liya ral foraminal stenosis is present. C5-6: . Left paracentral disc bulge with mild anterior thecal sac compression. Cord contact and cord deformity may be present. There is some signal change within the spinal cord at this level in the ax ial plane not as well-visualized in the sagittal plane. No AP spinal canal stenosis present. Neural f oramen have foraminal stenosis secondary to uncovertebral joint hypertrophy. C4-5: Mild disc bulge with anterior thecal sac contact is present. No spinal canal stenosis is eviden t. Neural foramen are patent. No cord contact or cord deformity is evident.. C3-4: No spinal canal stenosis or neural foraminal stenosis is present. Mild disc bulge with mild a nterior thecal sac compression. No cord contact is evident. C2-3: No focal disc herniation or significant disc bulge is evident. No spinal canal stenosis or liya ral foraminal stenosis is present. IMPRESSIONS: 1. Broad-based left paracentral disc herniation with cord contact C5-6. Some signal abnormalities wit hin the spinal cord at this level. No stenosis however is evident. 2. Mild disc bulges at C3-4 C4-5 with anterior thecal sac compression. 3. No suspicious changes to suggest neurosarcoidosis.
== END | disposition home or self-care (01) ==
LOC: RADMRIMAIN 12:27
PROVIDERS: ATTEND Psychiatry & Neurology Neurology
DX: D86.9 Sarcoidosis, unspecified (principal); M50.822 Other cervical disc disorders at C5-C6 level
CPT/HCPCS: 80069; 70553; 72156; A9585

== ENCOUNTER 2023-10-07 17:31 | Inpatient (IN) | payer MEDICARE ==
--- NOTE | 2023-10-07 17:59 | ED ---
Extremity Problem HPI - General Source: patient Mode of arrival: ambulatory Limitations: no limitations <Pat Ang - Last Filed: 10/07/23 17:59> <Sandra Dumont - Last Filed: 10/17/23 01:32> - General Chief complaint: Extremity Problem,Nontraumatic Stated complaint: Hand injury Time Seen by Provider: 10/07/23 17:59 - History of Present Illness Initial comments: Patient is a 73-year-old gentleman with a history of the procedure presents emergency room with complaints of his nails falling off. 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 Patient states that he was out this morning snowblowing without gloves on. He came in the house and soaked his hands to warm his hands up. This was around 1 PM in the afternoon. He then slowly noticed that his fingernail started peeling and his skin was blistering. He has had an issue like this before. 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 Patient did not want to wait too long before he ended up coming in. He does take 3 antibiotics once a month for his history of Pugh disease. He follows with an infectious disease specialist in [place]. He follows with Dr. Stern. He denies any pain in his extremities. Patient does take Eliquis. No other alleviating, p recipitating or modifying factors (Sandra Dumont) - Related Data Home Medications Medication Instructions Recorded Confirmed Apixaban [Eliquis] 5 mg PO BID 08/22/21 10/07/23 Metoprolol Succinate [Toprol XL] 25 mg PO HS 08/22/21 10/07/23 Gabapentin 300 mg PO HS 05/16/23 10/07/23 predniSONE 10 mg PO DAILY 05/16/23 10/07/23 Amitriptyline HCl [Elavil] 10 mg PO DIRECTED 10/07/23 10/07/23 Ergocalciferol (Vitamin D2) 1,250 mcg PO DIRECTED 10/07/23 10/07/23 [Drisdol (50,000 Iu)] Folic Acid 1 mg PO DIRECTED 10/07/23 10/07/23 Moxifloxacin HCl [Avelox] 400 mg PO Q30D 10/07/23 10/07/23 Pantoprazole [Protonix] 40 mg PO DIRECTED 10/07/23 10/07/23 Rifabutin 300 mg PO Q30D 10/07/23 10/07/23 Timolol 0.5% Ophth Soln [Timoptic 1 drop TOPICAL BID PRN 10/07/23 10/07/23 0.5% Ophth Soln] metHOTREXate sodium 17.5 mg PO Q7D 10/07/23 10/08/23 Previous Rx's Medication Instructions Recorded Doxycycline Hyclate 100 mg PO BID 14 Days #28 tab 10/11/23 Allergies Allergy/AdvReac Type Severity Reaction Status Date / Time No Known Allergies Allergy Verified 10/07/23 23:27 Review of Systems ROS Other: All systems not noted in ROS Statement are negative. <Pat Ang - Last Filed: 10/07/23 17:59> ROS Other: All systems not noted in ROS Statement are negative. <Sandra Dumont - Last Filed: 10/17/23 01:32> ROS Statement: Those systems with pertinent positive or pertinent negative responses have been documented in the HPI. Past Medical History Past Medical History: Osteoarthritis (OA) Additional Past Medical History / Comment(s): sarcoidosis. pt takes eliquis but denies afib,Leprosy History of Any Multi-Drug Resistant Organisms: None Reported Date of last positivie culture/infection: 05/18/23 MDRO Source:: Finger-Left Second Past Surgical History: Hernia Repair Additional Past Surgical History / Comment(s): Bilateral Hernia Repair, cataracts Past Anesthesia/Blood Transfusion Reactions: No Reported Reaction Past Psychological History: No Psychological Hx Reported Smoking Status: Former smoker Past Alcohol Use History: None Reported Past Drug Use History: None Reported - Past Family History Father Family Medical History: Congestive Heart Failure (CHF) Mother Family Medical History: Congestive Heart Failure (CHF) <Pat Ang - Last Filed: 10/07/23 17:59> General Exam Limitations: no limitations <Pat Ang - Last Filed: 10/07/23 17:59> General appearance: alert, in no apparent distress Head exam: Present: atraumatic, normocephalic, normal inspection Eye exam: Present: normal appearance, PERRL, EOMI. Absent: scleral icterus, conjunctival injection, periorbital swelling ENT exam: Present: normal exam, mucous membranes moist Neck exam: Present: normal inspection. Absent: tenderness, meningismus, lymphadenopathy Respiratory exam: Present: normal lung sounds bilaterally. Absent: respiratory distress, wheezes, rales, rhonchi, stridor Cardiovascular Exam: Present: regular rate, normal rhythm, normal heart sounds. Absent: systolic murmur, diastolic murmur, rubs, gallop, clicks GI/Abdominal exam: Present: soft, normal bowel sounds. Absent: distended, tenderness, guarding, rebound, rigid Extremities exam: Present: other (previous amputation of right 3rd digit. b/l distal digits on almost all fingers demonstrates dried ulceration possibly consistent with frostbite and mummification) Back exam: Present: normal inspection Neurological exam: Present: alert, oriented X3, CN II-XII intact Psychiatric exam: Present: normal affect, normal mood Skin exam: Present: warm, dry, intact, normal color. Absent: rash <Sandra Dumont - Last Filed: 10/17/23 01:32> - General Exam Comments Initial Comments: Visual Physical Exam Vital signs reviewed General: Well-appearing, nontoxic, no acute distress. Head: Normocephalic, atraumatic Eyes: PERRLA, EOMI ENT: Airway patent Chest: Nonlabored breathing Skin: No visual rash, normal skin tone Neuro: Alert and oriented 3 Musculoskeletal: No gross abnormalities (Mascarin,Pat) Course Vital Signs 10/07/23 10/07/23 10/08/23 17:40 22:44 00:17 Temperature 98.7 F Pulse Rate 84 98 72 Pulse Rate [ Motor Patrol Operator ] Respiratory 20 18 16 Rate Blood Pressure 125/80 126/73 122/71 Blood Pressure [Right Arm] O2 Sat by Pulse 99 98 98 Oximetry 10/08/23 10/08/23 10/08/23 04:49 05:50 11:27 Temperature 97.8 F 97.7 F Pulse Rate 76 77 77 Pulse Rate [ Motor Patrol Operator ] Respiratory 18 16 18 Rate Blood Pressure 126/81 124/85 96/68 Blood Pressure [Right Arm] O2 Sat by Pulse 98 97 97 Oximetry 10/08/23 10/08/23 15:00 20:45 Temperature 98.1 F 98.0 F Pulse Rate 70 Pulse Rate [ 72 Motor Patrol Operator ] Respiratory 16 18 Rate Blood Pressure 110/77 Blood Pressure 106/81 [Right Arm] O2 Sat by Pulse 96 97 Oximetry Medical Decision Making <Pat Ang - Last Filed: 10/07/23 17:59> - Lab Data Result diagrams: 10/09/23 05:48 10/11/23 06:34 <Sandra Dumont - Last Filed: 10/17/23 01:32> - Medical Decision Making Quick note portion completed by myself, electronically signed Pat Ang PAC. (Pat Ang) @ -Was pt. sent in by a medical professional or institution (, PA, WOOL BROKER, urgent care, hospital, or long term...) When possible be specific @ -No Did you speak to anyone other than the patient for history (EMS, parent, family, police, friend...)? What history was obtained from this source @ -No Did you review nursing and triage notes (agree or disagree)? Why? @ -I reviewed and agree with nursing and triage notes Were old charts reviewed (outside hosp., previous admission, EMS record, old EKG, old radiological studies, urgent care reports/EKG's, long term records)? Report findings @ -No old charts were reviewed Differential Diagnosis (chest pain, altered mental status, abdominal pain women, abdominal pain men, vaginal bleeding, weakness, fever, dyspnea, syncope, headache, dizziness, GI bleed, back pain, seizure, CVA, palpatations, mental health, musculoskeletal)? @ -cellulitis, abscess, felon, frostbite, vascular ischemia EKG interpreted by me (3pts min.). @ -Not done X-rays interpreted by me (1pt min.). @ -yes, no osteomyelitis CT interpreted by me (1pt min.). @ -None done U/S interpreted by me (1pt. min.). @ -None done What testing was considered but not performed or refused? (CT, X-rays, U/S, labs)? Why? @ -None What meds were considered but not given or refused? Why? @ -None Did you discuss the management of the patient with other professionals (professionals i.e. , PA, WOOL BROKER, lab, RT, psych nurse, social science research assistant, wet machine tender, teacher, fourth officer, assistant case manager)? Give summary @ -Dr. Breaux, Dr. Garcia Was smoking cessation discussed for >3mins.? @ -No Was critical care preformed (if so, how long)? @ -No Were there social determinants of health that impacted care today? How? (Homelessness, low income, unemployed, alcoholism, drug addiction, transportation, low edu. Level, literacy, decrease access to med. care, custodial, rehab)? @ -No Was there de-escalation of care discussed even if they declined (Discuss DNR or withdrawal of care, Hospice)? DNR status @ -No What co-morbidities impacted this encounter? (DM, HTN, Smoking, COPD, CAD, Cancer, CVA, ARF, Chemo, Hep., AIDS, mental health diagnosis, sleep apnea, morbid obesity)? @ -hansens disease, claw hands Was patient admitted / discharged? Hospital course, mention meds given and route, prescriptions, significant lab abnormalities, going to OR and other pertinent info. @Upon arrival patient was placed into room 8. Thorough history and physical exam was performed. Patient does have blistering over several digits. IV is established. Laboratory studies are conducted. Spoke with Dr. Breaux who states that the patient should be placed on broad-spectrum antibiotics. I will place Dr. Stern on consult. Spoke with Dr. Garcia who is agreeable to the admission Undiagnosed new problem with uncertain prognosis? @ -yes Drug Therapy requiring intensive monitoring for toxicity (Heparin, Nitro, Insulin, Cardizem)? @ -No Were any procedures done? @ -No Diagnosis/symptom? @ -bilateral numerous distal finger wounds, possible frostbite Acute, or Chronic, or Acute on Chronic? @ -acute Uncomplicated (without systemic symptoms) or Complicated (systemic symptoms)? @ -complicated Side effects of treatment? @ -No Exacerbation, Progression, or Severe Exacerbation? @ -No Poses a threat to life or bodily function? How? (Chest pain, USA, SD, pneumonia, PE, COPD, DKA, ARF, appy, cholecystitis, CVA, Diverticulitis, Homicidal, Suicidal, threat to staff... and all critical care pts) @ -No (Sandra Dumont) - Lab Data Lab Results 01/22/24 01/22/24 01/22/24 Range/Units 21:51 21:51 21:51 WBC 9.3 (3.8-10.6) k/uL RBC 4.55 (4.30-5.90) m/uL Hgb 13.7 (13.0-17.5) gm/dL Hct 41.7 (39.0-53.0) % MCV 91.8 (80.0-100.0) fL MCH 30.1 (25.0-35.0) pg MCHC 32.8 (31.0-37.0) g/dL RDW 14.0 (11.5-15.5) % Plt Count 186 (150-450) k/uL MPV 7.7 Immature Gran % (Auto) % Absolute Nucleated RBC % Neutrophils % 74 % Lymphocytes % 15 % Monocytes % 8 % Eosinophils % 0 % Basophils % 0 % Immature Gran # (0.00-0.04) X 10*3/uL Neutrophils # 6.9 (1.3-7.7) k/uL Lymphocytes # 1.4 (1.0-4.8) k/uL Monocytes # 0.7 (0-1.0) k/uL Eosinophils # 0.0 (0-0.7) k/uL Basophils # 0.0 (0-0.2) k/uL NRBC/100 WBC Diff (0.00-0.01) X 10*3/uL ESR 50 H (0-20) mm/Hr Sodium 136 L (137-145) mmol/L Potassium 4.0 (3.5-5.1) mmol/L Chloride 103 (98-107) mmol/L Carbon Dioxide 26 (22-30) mmol/L Anion Gap 7 mmol/L BUN 16 (9-20) mg/dL Creatinine 0.72 (0.66-1.25) mg/dL Est GFR (CKD-EPI) (>=60) Est GFR (CKD-EPI)AfAm >90 (>60 ml/min/1.73 sqM) Est GFR (CKD-EPI)NonAf >90 (>60 ml/min/1.73 sqM) BUN/Creatinine Ratio (12.00-20.00) Ratio Glucose 98 (74-99) mg/dL Plasma Lactic Acid Kev 1.1 (0.7-2.0) mmol/L Calcium 9.3 (8.4-10.2) mg/dL Total Bilirubin 0.7 (0.2-1.3) mg/dL AST 21 (17-59) U/L ALT 9 (4-49) U/L Alkaline Phosphatase 75 (38-126) U/L C-Reactive Protein 0.6 (<1.0) mg/dL Total Protein 7.7 (6.3-8.2) g/dL Albumin 4.0 (3.5-5.0) g/dL 10/08/23 10/08/23 10/09/23 Range/Units 06:35 06:35 05:48 WBC 8.9 (3.8-10.6) k/uL RBC 4.16 L (4.30-5.90) m/uL Hgb 12.9 L (13.0-17.5) gm/dL Hct 38.6 L (39.0-53.0) % MCV 92.7 (80.0-100.0) fL MCH 30.9 (25.0-35.0) pg MCHC 33.4 (31.0-37.0) g/dL RDW 14.0 (11.5-15.5) % Plt Count 166 (150-450) k/uL MPV 7.8 Immature Gran % (Auto) % Absolute Nucleated RBC % Neutrophils % 79 % Lymphocytes % 10 % Monocytes % 8 % Eosinophils % 2 % Basophils % 1 % Immature Gran # (0.00-0.04) X 10*3/uL Neutrophils # 7.0 (1.3-7.7) k/uL Lymphocytes # 0.9 L (1.0-4.8) k/uL Monocytes # 0.7 (0-1.0) k/uL Eosinophils # 0.1 (0-0.7) k/uL Basophils # 0.0 (0-0.2) k/uL NRBC/100 WBC Diff (0.00-0.01) X 10*3/uL ESR (0-20) mm/Hr Sodium 136 L 137 (137-145) mmol/L Potassium 4.1 4.0 (3.5-5.1) mmol/L Chloride 104 108 H (98-107) mmol/L Carbon Dioxide 24 24 (22-30) mmol/L Anion Gap 8 5 mmol/L BUN 16 17 (9-20) mg/dL Creatinine 0.64 L 0.69 (0.66-1.25) mg/dL Est GFR (CKD-EPI) (>=60) Est GFR (CKD-EPI)AfAm >90 >90 (>60 ml/min/1.73 sqM) Est GFR (CKD-EPI)NonAf >90 >90 (>60 ml/min/1.73 sqM) BUN/Creatinine Ratio (12.00-20.00) Ratio Glucose 112 H 101 H (74-99) mg/dL Plasma Lactic Acid Kev (0.7-2.0) mmol/L Calcium 8.8 8.8 (8.4-10.2) mg/dL Total Bilirubin 0.6 (0.2-1.3) mg/dL AST 19 (17-59) U/L ALT 7 (4-49) U/L Alkaline Phosphatase 65 (38-126) U/L C-Reactive Protein (<1.0) mg/dL Total Protein 6.5 (6.3-8.2) g/dL Albumin 3.2 L (3.5-5.0) g/dL 10/09/23 10/10/23 Range/Units 05:48 05:38 WBC 8.73 (3.8-10.6) k/uL RBC 4.18 L (4.30-5.90) m/uL Hgb 12.5 L (13.0-17.5) gm/dL Hct 38.1 L (39.0-53.0) % MCV 91.1 (80.0-100.0) fL MCH 29.9 (25.0-35.0) pg MCHC 32.8 (31.0-37.0) g/dL RDW 14.3 (11.5-15.5) % Plt Count 159 (150-450) k/uL MPV 10.9 Immature Gran % (Auto) 0.20 % Absolute Nucleated RBC 0 % Neutrophils % 73.0 % Lymphocytes % 14.2 % Monocytes % 9.9 % Eosinophils % 2.2 % Basophils % 0.5 % Immature Gran # 0.02 (0.00-0.04) X 10*3/uL Neutrophils # 6.38 (1.3-7.7) k/uL Lymphocytes # 1.24 (1.0-4.8) k/uL Monocytes # 0.86 (0-1.0) k/uL Eosinophils # 0.19 (0-0.7) k/uL Basophils # 0.04 (0-0.2) k/uL NRBC/100 WBC Diff 0 (0.00-0.01) X 10*3/uL ESR (0-20) mm/Hr Sodium 137 (137-145) mmol/L Potassium 4.1 (3.5-5.1) mmol/L Chloride 104 (98-107) mmol/L Carbon Dioxide 24.1 (22-30) mmol/L Anion Gap 8.90 mmol/L BUN 12.6 (9-20) mg/dL Creatinine 0.7 (0.66-1.25) mg/dL Est GFR (CKD-EPI) 97 (>=60) Est GFR (CKD-EPI)AfAm (>60 ml/min/1.73 sqM) Est GFR (CKD-EPI)NonAf (>60 ml/min/1.73 sqM) BUN/Creatinine Ratio 18.00 (12.00-20.00) Ratio Glucose 99 (74-99) mg/dL Plasma Lactic Acid Kev (0.7-2.0) mmol/L Calcium 8.1 L (8.4-10.2) mg/dL Total Bilirubin (0.2-1.3) mg/dL AST (17-59) U/L ALT (4-49) U/L Alkaline Phosphatase (38-126) U/L C-Reactive Protein (<1.0) mg/dL Total Protein (6.3-8.2) g/dL Albumin (3.5-5.0) g/dL Disposition <Pat Ang - Last Filed: 10/07/23 17:59> Is patient prescribed a controlled substance at d/c from ED?: No Time of Disposition: 22:34 Decision to Admit Reason: Admit from EC Decision Date: 10/07/23 Decision Time: :34 <Sandra Dumont - Last Filed: 10/17/23 01:32> Clinical Impression: Finger infection, Acquired claw hand Disposition: ADMITTED IP TO THIS HOSP Condition: Stable
[2023-10-07] MEDS ORDERED: AMPICILLIN-SULBACTAM 3 GM in SODIUM CHLORIDE 0.9% 100 ML IVPB STA (21:52)
[2023-10-07] MEDS ORDERED: VANCOMYCIN IV PER PHARMACY 1 EACH MISC MISCELLANE PRN (21:53)
[2023-10-07] MEDS ORDERED: VANCOMYCIN 1,500 MG in SODIUM CHLORIDE 0.9% 500 ML 500 ML IVPB STA (21:59)
[2023-10-07] MEDS ORDERED: NALOXONE 0.4 MG/ML 1 ML VIAL IV PRN (22:34)
--- NOTE | 2023-10-07 22:36 | XR ---
EXAM: XR Bilateral Hands Complete, 3 or More Views CLINICAL HISTORY: ITS.REASON XR Reason: osteo TECHNIQUE: Frontal, lateral and oblique views of the bilateral hands. COMPARISON: No relevant prior studies available. FINDINGS: Bones/joints: Severe osteoarthritis of the bilateral hands, preferentially involving the first CMC joints, bilaterally. There is collapse of the RIGHT lunate with proximal migration of the capitate, consistent with SLAC arthritis. Moderate fragmentation throughout the LEFT carpus, consistent with severe osteoarthritis. Amputation of the LEFT third ray at the MCP. No radiographic evidence of osteomyelitis. No fracture or dislocation. Soft tissues: Unremarkable. No radiopaque foreign body. IMPRESSION: Amputation of the LEFT third ray at the MCP. No radiographic evidence of osteomyelitis.
[2023-10-07 22:41] LABS: Basophils % (A) 0 %; Eosinophils % (A) 0 %; HCT 41.7 % (39.0-53.0); HGB 13.7 gm/dL (13.0-17.5); Lymphocytes # (A) 1.4 k/uL (1.0-4.8); Lymphocytes % (A) 15 %; MCH 30.1 pg (25.0-35.0); MCHC 32.8 g/dL (31.0-37.0); MCV 91.8 fL (80.0-100.0); Mean Platelet Volume 7.7; Monocytes # (A) 0.7 k/uL (0-1.0); Monocytes % (A) 8 %; Neutrophils # (A) 6.9 k/uL (1.3-7.7); Neutrophils % (A) 74 %; Platelet Count 186 k/uL (150-450); RBC 4.55 m/uL (4.30-5.90); WBC 9.3 k/uL (3.8-10.6)
[2023-10-07 22:53] LABS: ALT 9 U/L (4-49); AST 21 U/L (17-59); African American GFR (CKD) >90 (>60 ml/min/1.73 sqM); Alkaline Phosphatase 75 U/L (38-126); Anion Gap 7 mmol/L; Blood Urea Nitrogen 16 mg/dL (9-20); C Reactive Protein 0.6 mg/dL (<1.0); Calcium 9.3 mg/dL (8.4-10.2); Carbon Dioxide 26 mmol/L (22-30); Chloride 103 mmol/L (98-107); Glucose 98 mg/dL (74-99); Non-African American GFR(CKD) >90 (>60 ml/min/1.73 sqM); Sodium 136 mmol/L (137-145); Total Bilirubin 0.7 mg/dL (0.2-1.3); Total Protein 7.7 g/dL (6.3-8.2)
[2023-10-08] MEDS: GABAPENTIN 300 MG CAP PO SCH ×2 (00:18→21:00)
[2023-10-08] MEDS: METOPROLOL SUCCINATE (ER) 25 MG TAB.ER.24H PO SCH ×2 (00:18→21:00)
[2023-10-08] MEDS: APIXABAN 5 MG TAB PO SCH ×3 (00:18→21:00)
[2023-10-08 04:51] LABS: Erythrocyte Sedimentation Rate 50 mm/Hr (0-20)
[2023-10-08 07:02] LABS: Basophils % (A) 1 %; Eosinophils # (A) 0.1 k/uL (0-0.7); Eosinophils % (A) 2 %; HCT 38.6 % (39.0-53.0); HGB 12.9 gm/dL (13.0-17.5); Lymphocytes # (A) 0.9 k/uL (1.0-4.8); Lymphocytes % (A) 10 %; MCH 30.9 pg (25.0-35.0); MCHC 33.4 g/dL (31.0-37.0); MCV 92.7 fL (80.0-100.0); Mean Platelet Volume 7.8; Monocytes # (A) 0.7 k/uL (0-1.0); Monocytes % (A) 8 %; Neutrophils % (A) 79 %; Platelet Count 166 k/uL (150-450); RBC 4.16 m/uL (4.30-5.90); WBC 8.9 k/uL (3.8-10.6)
[2023-10-08 07:13] LABS: ALT 7 U/L (4-49); AST 19 U/L (17-59); African American GFR (CKD) >90 (>60 ml/min/1.73 sqM); Albumin 3.2 g/dL (3.5-5.0); Alkaline Phosphatase 65 U/L (38-126); Anion Gap 8 mmol/L; Blood Urea Nitrogen 16 mg/dL (9-20); Calcium 8.8 mg/dL (8.4-10.2); Carbon Dioxide 24 mmol/L (22-30); Chloride 104 mmol/L (98-107); Glucose 112 mg/dL (74-99); Non-African American GFR(CKD) >90 (>60 ml/min/1.73 sqM); Potassium 4.1 mmol/L (3.5-5.1); Sodium 136 mmol/L (137-145); Total Bilirubin 0.6 mg/dL (0.2-1.3); Total Protein 6.5 g/dL (6.3-8.2)
[2023-10-08] MEDS: predniSONE 10 MG TAB PO SCH (08:52)
--- NOTE | 2023-10-08 10:36 | P.HPIM ---
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 Patient reports he was snowblowing yesterday morning without gloves on, came inside to warm up his hands as he could not feel them felt. Soaked them in warm water, not realizing how hot the water was until he saw his nailbed lifting and skin peeling. Denies extremity pain. denies chest pain, palpitations or shortness of breath. Afebrile, normal WBC-hematology, chemistry panels unremarkable. Review of Systems ROS Statement: Those systems with pertinent positive or pertinent negative responses have been documented in the HPI. ROS Other: All systems not noted in ROS Statement are negative. Past Medical History Past Medical History: Osteoarthritis (OA) Additional Past Medical History / Comment(s): sarcoidosis. pt takes eliquis but denies afib,Leprosy History of Any Multi-Drug Resistant Organisms: MRSA Date of last positivie culture/infection: 05/18/23 MDRO Source:: Left sencond FInger Past Surgical History: Hernia Repair Additional Past Surgical History / Comment(s): Bilateral Hernia Repair, cataracts Past Anesthesia/Blood Transfusion Reactions: No Reported Reaction Past Psychological History: No Psychological Hx Reported Smoking Status: Former smoker Past Alcohol Use History: None Reported Past Drug Use History: None Reported - Past Family History Father Family Medical History: Congestive Heart Failure (CHF) Mother Family Medical History: Congestive Heart Failure (CHF) Medications and Allergies Home Medications Medication Instructions Recorded Confirmed Type Apixaban [Eliquis] 5 mg PO BID 08/22/21 10/07/23 History Metoprolol Succinate [Toprol XL] 25 mg PO HS 08/22/21 10/07/23 History Gabapentin 300 mg PO HS 05/16/23 10/07/23 History predniSONE 10 mg PO DAILY 05/16/23 10/07/23 History Amitriptyline HCl [Elavil] 10 mg PO DIRECTED 10/07/23 10/07/23 History Ergocalciferol (Vitamin D2) 1,250 mcg PO DIRECTED 10/07/23 10/07/23 History [Drisdol (50,000 Iu)] Folic Acid 1 mg PO DIRECTED 10/07/23 10/07/23 History Minocycline HCl [Minocin] 100 mg PO Q30D 10/07/23 10/07/23 History Moxifloxacin HCl [Avelox] 400 mg PO Q30D 10/07/23 10/07/23 History Pantoprazole [Protonix] 40 mg PO DIRECTED 10/07/23 10/07/23 History Rifabutin 300 mg PO Q30D 10/07/23 10/07/23 History Timolol 0.5% Ophth Soln [Timoptic 1 drop TOPICAL BID PRN 10/07/23 10/07/23 History 0.5% Ophth Soln] metHOTREXate sodium [Methotrexate] 17.5 mg PO Q7D 10/07/23 10/08/23 History Allergies Allergy/AdvReac Type Severity Reaction Status Date / Time No Known Allergies Allergy Verified 10/07/23 23:27 Physical Exam Vitals: Vital Signs Temp Pulse Resp BP Pulse Ox 10/08/23 05:50 97.8 F 77 16 124/85 97 10/08/23 04:49 76 18 126/81 98 10/08/23 00:17 72 16 122/71 98 10/07/23 22:44 98 18 126/73 98 10/07/23 17:40 98.7 F 84 20 125/80 99 Intake and Output 10/07/23 10/08/23 10/08/23 22:59 06:59 14:59 Other: Weight 79.379 kg PHYSICAL EXAM: VITAL SIGNS: [As above] GENERAL: Sitting up on stretcher, no acute distress HEENT: Normocephalic, Conjunctivae normal. eyes normal. NECK: Supple, No JVD. No thyroid enlargement. No LNs CARDIOVASCULAR: S1, S2 regular. No murmur RESPIRATION: Unlabored, equal air entry, breath sounds diminished in the bases. No rhonchi or crackles. ABDOMEN: Soft, nondistended, nontender . No guarding. no masses palpable. No ascites, No hepatosplenomegaly.Bowel sounds heard. Upper Extremities: Clawing of bilateral hands/digits, multiple skin blisters of both hands, dressings clean dry and intact. Positive radial pulses. LEGS: No edema. no swelling. PSYCHIATRY: Alert and oriented X3, mood and affect normal. NERVOUS SYSTEM: Cranial N 2-12 grossly normal. No focal deficits. Strength and sensation grossly intact. Results CBC & Chem 7: 10/09/23 05:48 10/09/23 05:48 Labs: Abnormal Lab Results - Last 24 Hours (Table) 10/07/23 10/07/23 10/08/23 Range/Units 21:51 21:51 06:35 RBC 4.16 L (4.30-5.90) m/uL Hgb 12.9 L (13.0-17.5) gm/dL Hct 38.6 L (39.0-53.0) % Lymphocytes # 0.9 L (1.0-4.8) k/uL ESR 50 H (0-20) mm/Hr Sodium 136 L (137-145) mmol/L Creatinine (0.66-1.25) mg/dL Glucose (74-99) mg/dL Albumin (3.5-5.0) g/dL 10/08/23 Range/Units 06:35 RBC (4.30-5.90) m/uL Hgb (13.0-17.5) gm/dL Hct (39.0-53.0) % Lymphocytes # (1.0-4.8) k/uL ESR (0-20) mm/Hr Sodium 136 L (137-145) mmol/L Creatinine 0.64 L (0.66-1.25) mg/dL Glucose 112 H (74-99) mg/dL Albumin 3.2 L (3.5-5.0) g/dL Assessment and Plan Assessment: Multiple blisters, open wounds of digits of bilateral hands secondary to water burn 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 Plan: Continue on current medication regimen, monitoring and symptomatic treatment. Maintain broad-spectrum IV antibiotics, gentle IV fluid hydration. infectious disease and orthopedic surgery consults in place. The impression and plan of care has been dictated as directed. : I performed a history and examination of this patient, discussed the same with the dictator. I agree with the dictator's note ,documented as a scribe. Any additional findings or plans will be noted.
[2023-10-08] MEDS: VANCOMYCIN 1,500 MG in SODIUM CHLORIDE 0.9% 500 ML 500 ML IVPB SCH ×2 (11:29→22:20)
--- NOTE | 2023-10-08 15:01 | P.CNOR ---
History of Present Illness - HPI Consult date: 10/08/23 Consult reason: other (Bilateral hand wounds) History of present illness: The patient is a 73 y/o male known to our practice after a left middle finger MP disarticulation in April 2023 due to infection. The patient healed well after the amputation. He now presents with bilateral hand wounds after snowblowing outside for a long period of time without gloves then put his hands in hot water 2 days ago. He does have a history of bilateral hand clawing for the past few years that was found to be Pugh's Disease. He does not have feeling in his hands and he was unable to tell his hands were cold. The patient noticed after soaking his hands that the skin on his right middle finger and left index finger was falling off his finger. The nails on the same fingers have fall off as well. He presented to the ER for further evaluation and antibiotics. He denies any increased swelling in his fingers. No purulent drainage. Orthopedic hand surgery was consulted for further evaluation. Review of Systems Constitutional: Denies chills, Denies fatigue, Denies fever Cardiovascular: Denies chest pain, Denies shortness of breath Respiratory: Denies cough Gastrointestinal: Denies diarrhea, Denies nausea, Denies vomiting Musculoskeletal: Reports as per HPI Past Medical History Past Medical History: Osteoarthritis (OA) Additional Past Medical History / Comment(s): sarcoidosis. pt takes eliquis but denies afib,Leprosy History of Any Multi-Drug Resistant Organisms: MRSA Year Discovered:: 05/18/23 MDRO Source:: Left sencond FInger Past Surgical History: Hernia Repair Additional Past Surgical History / Comment(s): Bilateral Hernia Repair, cataracts Past Anesthesia/Blood Transfusion Reactions: No Reported Reaction Past Psychological History: No Psychological Hx Reported Smoking Status: Former smoker Past Alcohol Use History: None Reported Past Drug Use History: None Reported - Past Family History Father Family Medical History: Congestive Heart Failure (CHF) Mother Family Medical History: Congestive Heart Failure (CHF) Medications and Allergies Home Medications Medication Instructions Recorded Confirmed Type Apixaban [Eliquis] 5 mg PO BID 08/22/21 10/07/23 History Metoprolol Succinate [Toprol XL] 25 mg PO HS 08/22/21 10/07/23 History Gabapentin 300 mg PO HS 05/16/23 10/07/23 History predniSONE 10 mg PO DAILY 05/16/23 10/07/23 History Amitriptyline HCl [Elavil] 10 mg PO DIRECTED 10/07/23 10/07/23 History Ergocalciferol (Vitamin D2) 1,250 mcg PO DIRECTED 10/07/23 10/07/23 History [Drisdol (50,000 Iu)] Folic Acid 1 mg PO DIRECTED 10/07/23 10/07/23 History Minocycline HCl [Minocin] 100 mg PO Q30D 10/07/23 10/07/23 History Moxifloxacin HCl [Avelox] 400 mg PO Q30D 10/07/23 10/07/23 History Pantoprazole [Protonix] 40 mg PO DIRECTED 10/07/23 10/07/23 History Rifabutin 300 mg PO Q30D 10/07/23 10/07/23 History Timolol 0.5% Ophth Soln [Timoptic 1 drop TOPICAL BID PRN 10/07/23 10/07/23 History 0.5% Ophth Soln] metHOTREXate sodium [Methotrexate] 17.5 mg PO Q7D 10/07/23 10/08/23 History Allergies Allergy/AdvReac Type Severity Reaction Status Date / Time No Known Allergies Allergy Verified 10/07/23 23:27 Physical Examination The patient is a 73 y/o male in no acute distress. He is alert and oriented x3. Exam of the bilateral hands reveal chronic clawing of all the fingers. Intrinsic wasting of the dorsal aspect of the hands. There are multiple small area of scabbing on the hands. There is tissue loss to the right middle finger tip. Nail plate is missing. No signs of infection. There is skin sloughing off the finger tip. There is also tissue loss of the left index finger with skin sloughing with nail plate within the skin. Numbness to the entire hands and fingers. Circulatory status is intact. Results X-rays of the bilateral hands reveal no signs of osteomyelitis. - Labs Labs: Abnormal Lab Results - Last 24 Hours (Table) 10/07/23 10/07/23 10/08/23 Range/Units 21:51 21:51 06:35 RBC 4.16 L (4.30-5.90) m/uL Hgb 12.9 L (13.0-17.5) gm/dL Hct 38.6 L (39.0-53.0) % Lymphocytes # 0.9 L (1.0-4.8) k/uL ESR 50 H (0-20) mm/Hr Sodium 136 L (137-145) mmol/L Creatinine (0.66-1.25) mg/dL Glucose (74-99) mg/dL Albumin (3.5-5.0) g/dL 10/08/23 Range/Units 06:35 RBC (4.30-5.90) m/uL Hgb (13.0-17.5) gm/dL Hct (39.0-53.0) % Lymphocytes # (1.0-4.8) k/uL ESR (0-20) mm/Hr Sodium 136 L (137-145) mmol/L Creatinine 0.64 L (0.66-1.25) mg/dL Glucose 112 H (74-99) mg/dL Albumin 3.2 L (3.5-5.0) g/dL H & H 10/07/23 10/08/23 Range/Units 21:51 06:35 Hgb 13.7 12.9 L (13.0-17.5) gm/dL Hct 41.7 38.6 L (39.0-53.0) % Result Diagrams: 10/08/23 06:35 10/08/23 06:35 Assessment and Plan (1) Open wound, hand Current Visit: Yes Status: Acute Code(s): S61.409A - UNSPECIFIED OPEN WOUND OF UNSPECIFIED HAND, INIT ENCNTR SNOMED Code(s): 449397357 (2) Pugh's disease Current Visit: Yes Status: Acute Code(s): A30.9 - LEPROSY, UNSPECIFIED SNOMED Code(s): 67888847 (3) Acquired claw hand Current Visit: Yes Status: Acute Code(s): M21.519 - ACQUIRED CLAWHAND, UNSPECIFIED HAND SNOMED Code(s): 662882148 Plan: The clinical and x-rays discussed with the patient. The case was discussed at length with Dr. Stern. We do not recommend any surgical intervention at this time. The sloughing skin on the fingers will be removed tomorrow at the bedside and local wound care is recommended. Dr. Breaux is on the case and he is to direct antibiotics and wound care. We will continue to follow the closely and make further recommendations depending on the patient's course.
[2023-10-08] MEDS ORDERED: AMITRIPTYLINE HCL 10 MG TAB PO SCH (21:00)
[2023-10-08] MEDS ORDERED: TIMOLOL 0.5% OP PRN (23:00)
[2023-10-09 07:01] LABS: African American GFR (CKD) >90 (>60 ml/min/1.73 sqM); Anion Gap 5 mmol/L; Blood Urea Nitrogen 17 mg/dL (9-20); Calcium 8.8 mg/dL (8.4-10.2); Carbon Dioxide 24 mmol/L (22-30); Chloride 108 mmol/L (98-107); Glucose 101 mg/dL (74-99); Non-African American GFR(CKD) >90 (>60 ml/min/1.73 sqM); Sodium 137 mmol/L (137-145)
--- NOTE | 2023-10-09 08:37 | P.PN ---
Subjective Progress Note Date: 10/09/23 Principal diagnosis: Bilateral hand wounds The patient is a 73 y/o male known to our practice after a left middle finger MP disarticulation in April 2023 due to infection. The patient healed well after the amputation. He now presents with bilateral hand wounds after snowblowing outside for a long period of time without gloves then put his hands in hot water 2 days ago. He does have a history of bilateral hand clawing for the past few years that was found to be Pugh's Disease. He does not have feeling in his hands and he was unable to tell his hands were cold. The patient noticed after soaking his hands that the skin on his right middle finger and left index finger was falling off his finger. The nails on the same fingers have fall off as well. He presented to the ER for further evaluation and antibiotics. He denies any increased swelling in his fingers. No purulent drainage. Orthopedic hand surgery was consulted for further evaluation. 10/09/2023: The patient denies any issues overnight. Continues on IV antibiotics. The skin on the right middle finger has fallen off on it's own. No new complaints. Objective - Vital Signs Vital signs: Vital Signs Temp 98 F 10/09/23 07:00 Pulse 61 10/09/23 07:00 Resp 18 10/09/23 07:00 BP 111/64 10/09/23 07:00 Pulse Ox 98 10/09/23 07:00 FiO2 Intake & Output 10/08/23 10/09/23 10/09/23 18:59 06:59 18:59 Weight 79.379 kg Other: # Voids 1 - Exam The patient is a 73 y/o male in no acute distress. He is alert and oriented x3. Exam of the bilateral hands reveal chronic clawing of all the fingers. Intrinsic wasting of the dorsal aspect of the hands. There are multiple small area of scabbing on the hands. There is tissue loss to the right middle finger t ip. Nail plate is missing. No signs of infection. There is also superficial skin loss to the right index finger. There is also tissue loss of the left index finger with skin sloughing with nail plate within the skin, which was removed today. Numbness to the entire hands and fingers. Circulatory status is intact. - Labs CBC & Chem 7: 01/24/24 05:48 10/09/23 05:48 Labs: Abnormal Lab Results - Last 24 Hours (Table) 10/09/23 Range/Units 05:48 Chloride 108 H (98-107) mmol/L Glucose 101 H (74-99) mg/dL Microbiology - Last 24 Hours (Table) 10/07/23 21:55 Blood Culture - Preliminary Blood Assessment and Plan (1) Open wound, hand Current Visit: Yes Status: Acute Code(s): S61.409A - UNSPECIFIED OPEN WOUND OF UNSPECIFIED HAND, INIT ENCNTR SNOMED Code(s): 217964019 (2) Pugh's disease Current Visit: Yes Status: Acute Code(s): A30.9 - LEPROSY, UNSPECIFIED SNOMED Code(s): 11534383 (3) Acquired claw hand Current Visit: Yes Status: Acute Code(s): M21.519 - ACQUIRED CLAWHAND, UNSPECIFIED HAND SNOMED Code(s): 990406046 Plan: The clinical and x-rays discussed with the patient. The case was discussed at length with Dr. Stern. We do not recommend any surgical intervention at this time. I had the patient wash his hands with soap and water this morning. Aquacel applied to the wound of the right index, right middle, and left index fingers. Dr. Breaux is on the case and he is to direct antibiotics and further wound care. He is orthopedically stable for discharge and may follow up in our office if signs or symptoms of infection begin. We will continue to follow the patient while he remains in the hospital.
[2023-10-09] MEDS ORDERED: metHOTREXate sodium 2.5 MG TAB PO SCH (09:00)
[2023-10-09] MEDS: APIXABAN 5 MG TAB PO SCH ×2 (09:26→21:33)
[2023-10-09] MEDS: FOLIC ACID 1 MG TAB PO SCH (09:26)
[2023-10-09] MEDS: PANTOPRAZOLE 40 MG TABLET PO SCH (09:26)
[2023-10-09] MEDS: predniSONE 10 MG TAB PO SCH (09:26)
[2023-10-09] MEDS: VANCOMYCIN 1,500 MG in SODIUM CHLORIDE 0.9% 500 ML 500 ML IVPB SCH ×2 (11:08→23:09)
[2023-10-09 11:12] LABS: Basophils # (A) 0.04 X 10*3/uL (0.00-0.10); Basophils % (A) 0.5 %; Eosinophils # (A) 0.19 X 10*3/uL (0.04-0.35); Eosinophils % (A) 2.2 %; HCT 38.1 % (39.6-50.0); HGB 12.5 g/dL (13.0-17.0); Lymphocytes # (A) 1.24 X 10*3/uL (0.90-5.00); Lymphocytes % (A) 14.2 %; MCH 29.9 pg (27.0-32.0); MCHC 32.8 g/dL (32.0-37.0); MCV 91.1 FL (80.0-97.0); Mean Platelet Volume 10.9 FL (9.5-12.2); Monocytes # (A) 0.86 X 10*3/uL (0.20-1.00); Monocytes % (A) 9.9 %; NRBC Per 100 WBC 0 X 10*3/uL (0.00-0.01); Neutrophils # (A) 6.38 X 10*3/uL (1.80-7.70); Platelet Count 159 X 10*3/uL (140-440); RBC 4.18 X 10*6/uL (4.40-5.60); RDW 14.3 % (11.5-14.5); WBC 8.73 X 10*3/uL (4.50-10.00)
--- NOTE | 2023-10-09 15:19 | P.PN ---
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 Patient reports he was snowblowing yesterday morning without gloves on, came inside to warm up his hands as he could not feel them felt. Soaked them in warm water, not realizing how hot the water was until he saw his nailbed and skin beginning peeling. Denies extremity pain. denies chest pain, palpitations or shortness of breath. Afebrile, normal WBC-hematology, chemistry panels unremarkable. 10/09/2023 evaluated with radiology studies reviewed by orthopedic hand specialist, Dr. Stern and team, with no surgical intervention recommended at this time. Potential removal of sloughing skin tissue currently being discussed along with local wound care as per orthopedics. Maintained on vancomycin with renal function stable. Denies nausea, vomiting or diarrhea. Denies abdominal pain. afebrile, normal WBC. Denies pain. Denies chest pain, palpitations or shortness of breath. Objective - Vital Signs Vital signs: Vital Signs Temp 98 F 10/09/23 14:14 Pulse 73 10/09/23 14:14 Resp 19 10/09/23 14:14 BP 106/45 10/09/23 14:14 Pulse Ox 99 10/09/23 14:14 FiO2 Intake & Output 10/08/23 10/09/23 10/09/23 18:59 06:59 18:59 Intake Total 236 Balance 236 Weight 79.379 kg Intake: Oral 236 Other: Voiding Method Toilet # Voids 1 3 - Exam PHYSICAL EXAM: VITAL SIGNS: [As above] GENERAL: Sitting up in bed, watching TV, no acute distress HEENT: Normocephalic, Conjunctivae normal. eyes normal. NECK: Supple, No JVD. CARDIOVASCULAR: S1, S2 regular. No murmur RESPIRATION: Unlabored, equal air entry, breath sounds diminished in the bases. No rhonchi or crackles. ABDOMEN: Soft, nondistended, nontender . No guarding. No rigidity. +BS. Upper Extremities: Clawing of bilateral hands/digits, multiple skin blisters of both hands, dressings clean dry and intact right second and third digits and left second digit. Positive radial pulses. LEGS: No edema. no swelling. PSYCHIATRY: Alert and oriented X3, mood and affect normal. NERVOUS SYSTEM: Cranial N 2-12 grossly normal. No focal deficits. Strength and sensation grossly intact. 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 Plan: Continue on current medication regimen, monitoring and symptomatic treatment. Maintain broad-spectrum IV antibiotics, gentle IV fluid hydration. Close monitoring of renal function with repeat labs ordered for a.m. wound care as per orthopedics. Infectious disease consult in place with recommendations pending. The impression and plan of care has been dictated as directed. : I performed a history and examination of this patient, discussed the same with the dictator. I agree with the dictator's note ,documented as a scribe. Any additional findings or plans will be noted.
[2023-10-09] MEDS: GABAPENTIN 300 MG CAP PO SCH (21:33)
[2023-10-09] MEDS: METOPROLOL SUCCINATE (ER) 25 MG TAB.ER.24H PO SCH (21:33)
--- NOTE | 2023-10-10 06:30 | P.CONS ---
History of Present Illness - Reason for Consult Consult date: 10/08/23 Open wounds to fingers cellulitis Requesting physician: Sandra Dumont - Chief Complaint Sloughing of skin from the fingertip x 1 day - History of Present Illness This is a telehealth visit Patient is a 73-year-old male with a past medical history significant for sarcoidosis patient also have a history of Claw hands and has been recently diagnosed with leprosy, patient did have a left middle finger infection secondary to MRSA in April of 2023 requiring amputation of the left middle finger for the patient has completed course of IV antibiotic therapy and that area has healed. Patient is presenting to the hospital concerning for nail sloughing of his right middle and left index finger apparently patient was shoveling outside without the gloves and did not realize that hands were cold subsequently patient soak his hands in the warm water and noticed that his fingernail was sloughing off along with the skin patient denies having any pain because of no sensation and denies having any purulent drainage keeping in mind his previous infection of the finger requiring amputation patient presented to hospital patient denies high-grade fever or any chills on presentation to the hospital patient was afebrile and no fever have recorded subsequently patient was not tachycardic hypotensive or hypoxic he did have white count of 9.3 creatinine 0.72 electrolyt es are normal liver isms are normal blood culture has been obtained which are currently pending patient did have a x-ray of the hand no radiographic evidence of osteomyelitis patient was started on vancomycin because of his previous culture for MRSA infectious disease was consulted for further management of antibiotic therapy Review of Systems Positive point and negatives has been mentioned in the HPI, complete review of systems was performed and all other systems are negative Past Medical History Past Medical History: Osteoarthritis (OA) Additional Past Medical History / Comment(s): sarcoidosis. pt takes eliquis but denies afib,Leprosy History of Any Multi-Drug Resistant Organisms: MRSA Year Discovered:: 05/18/23 MDRO Source:: Left sencond FInger Past Surgical History: Hernia Repair Additional Past Surgical History / Comment(s): Bilateral Hernia Repair, cataracts Past Anesthesia/Blood Transfusion Reactions: No Reported Reaction Past Psychological History: No Psychological Hx Reported Smoking Status: Former smoker Past Alcohol Use History: None Reported Past Drug Use History: None Reported - Past Family History Father Family Medical History: Congestive Heart Failure (CHF) Mother Family Medical History: Congestive Heart Failure (CHF) Medications and Allergies Home Medications Medication Instructions Recorded Confirmed Type Apixaban [Eliquis] 5 mg PO BID 08/22/21 10/07/23 History Metoprolol Succinate [Toprol XL] 25 mg PO HS 08/22/21 10/07/23 History Gabapentin 300 mg PO HS 05/16/23 10/07/23 History predniSONE 10 mg PO DAILY 05/16/23 10/07/23 History Amitriptyline HCl [Elavil] 10 mg PO DIRECTED 10/07/23 10/07/23 History Ergocalciferol (Vitamin D2) 1,250 mcg PO DIRECTED 10/07/23 10/07/23 History [Drisdol (50,000 Iu)] Folic Acid 1 mg PO DIRECTED 10/07/23 10/07/23 History Moxifloxacin HCl [Avelox] 400 mg PO Q30D 10/07/23 10/07/23 History Pantoprazole [Protonix] 40 mg PO DIRECTED 10/07/23 10/07/23 History Rifabutin 300 mg PO Q30D 10/07/23 10/07/23 History Timolol 0.5% Ophth Soln [Timoptic 1 drop TOPICAL BID PRN 10/07/23 10/07/23 History 0.5% Ophth Soln] metHOTREXate sodium 17.5 mg PO Q7D 10/07/23 10/08/23 History Doxycycline Hyclate 100 mg PO BID 14 Days #28 tab 10/11/23 Rx Allergies Allergy/AdvReac Type Severity Reaction Status Date / Time No Known Allergies Allergy Verified 10/07/23 23:27 Physical Exam Vitals: Vital Signs Temp Pulse Resp BP Pulse Ox 10/08/23 05:50 97.8 F 77 16 124/85 97 10/08/23 04:49 76 18 126/81 98 10/08/23 00:17 72 16 122/71 98 10/07/23 22:44 98 18 126/73 98 10/07/23 17:40 98.7 F 84 20 125/80 99 Intake and Output 10/07/23 10/08/23 10/08/23 22:59 06:59 14:59 Other: Weight 79.379 kg Elderly male lying in bed in no distress Respiratory system unlabored breathing decreased breath sound the base Heart S1-S2 regular Abdominal soft no tenderness Extremities bilateral hand fingers did show sloughing of the skin minimal redness no foul-smelling drainage reported Exam completed with the help of SODA DRY HOUSE OPERATOR Results CBC & Chem 7: 10/09/23 05:48 10/11/23 06:34 Labs: Abnormal Lab Results - Last 24 Hours (Table) 10/07/23 10/07/23 10/08/23 Range/Units 21:51 21:51 06:35 RBC 4.16 L (4.30-5.90) m/uL Hgb 12.9 L (13.0-17.5) gm/dL Hct 38.6 L (39.0-53.0) % Lymphocytes # 0.9 L (1.0-4.8) k/uL ESR 50 H (0-20) mm/Hr Sodium 136 L (137-145) mmol/L Creatinine (0.66-1.25) mg/dL Glucose (74-99) mg/dL Albumin (3.5-5.0) g/dL 10/08/23 Range/Units 06:35 RBC (4.30-5.90) m/uL Hgb (13.0-17.5) gm/dL Hct (39.0-53.0) % Lymphocytes # (1.0-4.8) k/uL ESR (0-20) mm/Hr Sodium 136 L (137-145) mmol/L Creatinine 0.64 L (0.66-1.25) mg/dL Glucose 112 H (74-99) mg/dL Albumin 3.2 L (3.5-5.0) g/dL Assessment and Plan (1) Finger infection Status: Acute Code(s): L08.9 - LOCAL INFECTION OF THE SKIN AND SUBCUTANEOUS TISSUE, UNSP SNOMED Code(s): 098882427 (2) Open wound, hand Status: Acute Code(s): S61.409A - UNSPECIFIED OPEN WOUND OF UNSPECIFIED HAND, INIT ENCNTR SNOMED Code(s): 017644289 Plan: 1patient presented to hospital with sloughing of the skin and nails involving his right middle and the left index finger did have evidence of ulceration and concerning for cellulitis patient last culture positive for MRSA 2-await hand surgery evaluation for possible debridement and cultures 3-we will empirically cover the patient on vancomycin pharmacy to dose while waiting for the cultures to be finalized 4-patient did have a history of leprosy for the patient will continue to follow with his saturator tender and treating physician on discharge We will follow on clinical condition and cultures to further adjust medication if needed Thank you for this consultation we will follow the patient along with you Dictation was produced using [employer] dictation software. please excuse any grammatical, word or spelling errors. Time with Patient: Greater than 30
--- NOTE | 2023-10-10 06:32 | P.PN ---
Subjective Progress Note Date: 10/09/23 Principal diagnosis: Reason for follow-up is bilateral hand and finger wound and question of cellulitis This is a telehealth visit Patient is a 73-year-old male with a past medical history significant for sarcoidosis patient also have a history of Claw hands and has been recently diagnosed with leprosy, patient did have a left middle finger infection secondary to MRSA in April of 2023 requiring amputation of the left middle finger, now presenting to the hospital with sloughing of the skin and nail on his right middle and left index finger. On today's evaluation that is 10/09/2023, the patient denies having any fever or any chills, the patient is breathing comfortably on room air, no chest pain shortness of the cough no nausea vomiting no abdominal pain and denies pain to his bilateral infected hand fingers Patient did have a white count of 8.9, creatinine 0.69 blood cultures is pending no local cultures was done Objective - Vital Signs Vital signs: Vital Signs Temp 98 F 10/09/23 07:00 Pulse 61 10/09/23 07:00 Resp 18 10/09/23 07:00 BP 111/64 10/09/23 07:00 Pulse Ox 98 10/09/23 07:00 FiO2 Intake & Output 10/08/23 10/09/23 10/09/23 18:59 06:59 18:59 Intake Total 118 Balance 118 Weight 79.379 kg Intake: Oral 118 Other: # Voids 1 - Exam Elderly male lying in bed in no distress Unlabored breathing Bilateral hand fingers are currently dressed minimal drainage on the dressing Exam completed with the help of WINDOW INSTALLATION SUBCONTRACTOR - Labs CBC & Chem 7: 10/09/23 05:48 10/09/23 05:48 Labs: Abnormal Lab Results - Last 24 Hours (Table) 10/09/23 Range/Units 05:48 Chloride 108 H (98-107) mmol/L Glucose 101 H (74-99) mg/dL Microbiology - Last 24 Hours (Table) 10/07/23 21:55 Blood Culture - Preliminary Blood Assessment and Plan (1) Finger infection Current Visit: Yes Status: Acute Code(s): L08.9 - LOCAL INFECTION OF THE SKIN AND SUBCUTANEOUS TISSUE, UNSP SNOMED Code(s): 542993972 Plan: 1patient presented to hospital with sloughing of the skin and nails involving his right middle and the left index finger did have evidence of ulceration and concerning for cellulitis patient last culture positive for MRSA 2-patient has been evaluated by hand surgery and planning for possible bedside removal of his sloughing skin, local culture should be obtained 3-we will continue the patient on vancomycin pharmacy to dose while waiting for the cultures to be finalized Dictation was produced using [employer] dictation software. please excuse any grammatical, word or spelling errors. Time with Patient: Less than 30
[2023-10-10] MEDS: PANTOPRAZOLE 40 MG TABLET PO SCH (08:06)
[2023-10-10] MEDS: FOLIC ACID 1 MG TAB PO SCH (08:06)
[2023-10-10] MEDS: predniSONE 10 MG TAB PO SCH (08:06)
[2023-10-10] MEDS: APIXABAN 5 MG TAB PO SCH ×2 (08:06→20:16)
[2023-10-10 09:00] LABS: Blood Urea Nitrogen 12.6 mg/dL (9.0-27.0); Calcium 8.1 mg/dL (8.7-10.3); Carbon Dioxide 24.1 mmol/L (21.6-31.8); Chloride 104 mmol/L (96-109); Glucose 99 mg/dL (70-110); Potassium 4.1 mmol/L (3.5-5.5); Sodium 137 mmol/L (135-145)
[2023-10-10] MEDS ORDERED: VANCOMYCIN TROUGH DUE 1 EACH MISC MISCELLANE ONE (10:00)
[2023-10-10 10:43] LABS: African American GFR (CKD) >90 (>60 ml/min/1.73 sqM); Non-African American GFR(CKD) >90 (>60 ml/min/1.73 sqM)
[2023-10-10] MEDS: VANCOMYCIN 1,500 MG in SODIUM CHLORIDE 0.9% 500 ML 500 ML IVPB SCH ×2 (11:18→23:05)
--- NOTE | 2023-10-10 13:11 | P.PN ---
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 Patient reports he was snowblowing yesterday morning without gloves on, came inside to warm up his hands as he could not feel them felt. Soaked them in warm water, not realizing how hot the water was until he saw his nailbed and skin beginning peeling. Denies extremity pain. denies chest pain, palpitations or shortness of breath. Afebrile, normal WBC-hematology, chemistry panels unremarkable. 10/09/2023 evaluated with radiology studies reviewed by orthopedic hand specialist, Dr. Stern and team, with no surgical intervention recommended at this time. Potential removal of sloughing skin tissue currently being discussed along with local wound care as per orthopedics. Maintained on vancomycin with renal function stable. Denies nausea, vomiting or diarrhea. Denies abdominal pain. afebrile, normal WBC. Denies pain. Denies chest pain, palpitations or shortness of breath. 10/10/2024 no wound cultures recommended at this time per orthopedics hand specialist with no further debridement planned/thin layer formed over the frostbite. Maintained on vancomycin, creatinine stable, 0.66. Afebrile. Denies pain. Denies chest pain, palpitations or shortness of breath. Objective - Vital Signs Vital signs: Vital Signs Temp 97.6 F 10/10/23 07:00 Pulse 64 10/10/23 07:00 Resp 16 10/10/23 07:00 BP 118/68 10/10/23 07:00 Pulse Ox 99 10/10/23 07:00 FiO2 Intake & Output 10/09/23 10/10/23 10/10/23 18:59 06:59 18:59 Intake Total 354 118 Balance 354 118 Intake: Oral 354 118 Other: Voiding Method Toilet Toilet # Voids 3 1 - Exam PHYSICAL EXAM: VITAL SIGNS: [As above] GENERAL: Alert and oriented x 3, sitting up in bed, eating breakfast, no acute distress HEENT: Normocephalic, Conjunctivae normal. NECK: Supple, No JVD. CARDIOVASCULAR: S1, S2 regular. No murmur RESPIRATION: Unlabored, equal air entry, CTA with bilateral bases diminished. ABDOMEN: Soft, nondistended, nontender . No guarding. No rigidity. +BS. Upper Extremities: Clawing of bilateral hands/digits, multiple skin blisters of both hands, dressings clean dry and intact right second and third digits and left second digit. Positive radial pulses. LEGS: No edema. no swelling. NERVOUS SYSTEM: Cranial N 2-12 grossly normal. No focal deficits. 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 Plan: Continue on current medication regimen, monitoring and symptomatic treatment. Maintain IV antibiotics, gentle IV fluid hydration. Vancomycin per pharmacy dosing as per ID. Close monitoring of renal function with repeat labs ordered for a.m. discharge planning in progress pending final DC recommendations and clearance per ID. The impression and plan of care has been dictated as directed. : I performed a history and examination of this patient, discussed the same with the dictator. I agree with the dictator's note ,documented as a scribe. Any additional findings or plans will be noted.
[2023-10-10] MEDS: METOPROLOL SUCCINATE (ER) 25 MG TAB.ER.24H PO SCH (20:16)
[2023-10-10] MEDS: GABAPENTIN 300 MG CAP PO SCH (20:16)
--- NOTE | 2023-10-10 22:36 | P.PN ---
Subjective Progress Note Date: 10/10/23 Principal diagnosis: Reason for follow-up is bilateral hand and finger wound and question of cellulitis This is a telehealth visit Patient is a 73-year-old male with a past medical history significant for sarcoidosis patient also have a history of Claw hands and has been recently diagnosed with leprosy, patient did have a left middle finger infection secondary to MRSA in April of 2023 requiring amputation of the left middle finger, now presenting to the hospital with sloughing of the skin and nail on his right middle and left index finger. On today's evaluation that is 10/10/2023 patient remains to be afebrile, the patient is breathing comfortably and is currently on room air, the patient denies having any chest pain no significant cough or sputum production patient denies having abdominal pain no nausea no vomiting and no diarrhea has been reported. Patient denies pain to bilateral hand fingers Patient did have a creatinine of 0.66 today no CBC was done blood cultures so far pending Objective - Vital Signs Vital signs: Vital Signs Temp 97.6 F 10/10/23 07:00 Pulse 64 10/10/23 07:00 Resp 16 10/10/23 07:00 BP 118/68 10/10/23 07:00 Pulse Ox 99 10/10/23 07:00 FiO2 Intake & Output 10/09/23 10/10/23 10/10/23 18:59 06:59 18:59 Intake Total 354 118 Balance 354 118 Intake: Oral 354 118 Other: Voiding Method Toilet # Voids 3 1 - Exam Elderly male lying in bed in no distress Unlabored breathing Bilateral hand fingers are currently dressed minimal drainage on the dressing Exam completed with the help of DOCUMENT CLERK - Labs CBC & Chem 7: 10/09/23 05:48 10/10/23 09:52 Labs: Abnormal Lab Results - Last 24 Hours (Table) 10/09/23 Range/Units 05:48 RBC 4.18 L (4.40-5.60) X 10*6/uL Hgb 12.5 L (13.0-17.0) g/dL Hct 38.1 L (39.6-50.0) % Microbiology - Last 24 Hours (Table) 10/07/23 21:55 Blood Culture - Preliminary Blood Assessment and Plan (1) Finger infection Current Visit: Yes Status: Acute Code(s): L08.9 - LOCAL INFECTION OF THE SKIN AND SUBCUTANEOUS TISSUE, UNSP SNOMED Code(s): 574848834 Plan: 1patient presented to hospital with sloughing of the skin and nails involving his right middle and the left index finger did have evidence of ulceration and concerning for cellulitis patient last culture positive for MRSA 2-patient has been evaluated by hand surgery and planning for possible bedside removal of his sloughing skin, local culture should be obtained, procedures currently pending 3-patient to continue with vancomycin pharmacy to dose for now and monitor clinical course closely Dictation was produced using [employer] dictation software. please excuse any grammatical, word or spelling errors. Time with Patient: Less than 30
[2023-10-11 07:22] LABS: African American GFR (CKD) >90 (>60 ml/min/1.73 sqM); Non-African American GFR(CKD) >90 (>60 ml/min/1.73 sqM)
[2023-10-11] MEDS: PANTOPRAZOLE 40 MG TABLET PO SCH (08:11)
[2023-10-11] MEDS: FOLIC ACID 1 MG TAB PO SCH (08:11)
[2023-10-11] MEDS: APIXABAN 5 MG TAB PO SCH (08:11)
[2023-10-11] MEDS: predniSONE 10 MG TAB PO SCH (08:11)
[2023-10-11 09:08] VITALS: BP 108/67; PULSE 68; RESP 16; TEMP 98.3
--- NOTE | 2023-10-11 09:22 | P.DS ---
Providers Date of admission: 10/10/23 08:11 Expected date of discharge: 10/11/23 Attending physician: Sean Garcia Consults: 10/07/23 23:36 Consult Physician Urgent Consulting Provider: Manju Stern Consult Reason/Comments: open wounds b/l hands Do you want consulting provider notified?: Yes 10/08/23 02:44 Consult Physician Urgent Consulting Provider: Brad Breaux Consult Reason/Comments: hx leprosy Do you want consulting provider notified?: Already Contacted Primary care physician: Sean Garcia Hospital Course: Final Diagnoses: Multiple blisters, open wounds of digits of bilateral hands secondary to water burn 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 Patient reports he was snowblowing yesterday morning without gloves on, came inside to warm up his hands as he could not feel them felt. Soaked them in warm water, not realizing how hot the water was until he saw his nailbed and skin beginning peeling. Denies extremity pain. denies chest pain, palpitations or shortness of breath. Afebrile, normal WBC-hematology, chemistry panels unremarkable. 10/09/2023 evaluated with radiology studies reviewed by orthopedic hand specialist, Dr. Stern and team, with no surgical intervention recommended at this time. Potential removal of sloughing skin tissue currently being discussed along with local wound care as per orthopedics. Maintained on vancomycin with renal function stable. Denies nausea, vomiting or diarrhea. Denies abdominal pain. afebrile, normal WBC. Denies pain. Denies chest pain, palpitations or shortness of breath. 10/10/2024 no wound cultures recommended at this time per orthopedics hand specialist with no further debridement planned/thin layer formed over the frostbite. Maintained on vancomycin, creatinine stable, 0.66. Afebrile. Denies pain. Denies chest pain, palpitations or shortness of breath. Significant clinical improvement. maintained on IV antibiotics as per ID. Renal function stable. afebrile. denies pain. Cleared by both orthopedics and infectious disease for discharge. Patient will be discharged home with home care and to follow-up with PCP, the wound care center and infectious disease. The impression and plan of care has been dictated as directed. : I performed a history and examination of this patient, discussed the same with the dictator. I agree with the dictator's note ,documented as a scribe. Any additional findings or plans will be noted. Patient Condition at Discharge: Stable Plan - Discharge Summary Discharge Rx Participant: Yes New Discharge Prescriptions: New Doxycycline Hyclate 100 mg PO BID 14 Days #28 tab Continue Apixaban [Eliquis] 5 mg PO BID Gabapentin 300 mg PO HS Pantoprazole [Protonix] 40 mg PO DIRECTED Timolol 0.5% Ophth Soln [Timoptic 0.5% Ophth Soln] 1 drop TOPICAL BID PRN PRN Reason: using on finger wounds Metoprolol Succinate [Toprol XL] 25 mg PO HS predniSONE 10 mg PO DAILY Ergocalciferol (Vitamin D2) [Drisdol (50,000 Iu)] 1,250 mcg PO DIRECTED Amitriptyline HCl [Elavil] 10 mg PO DIRECTED metHOTREXate sodium [Methotrexate] 17.5 mg PO Q7D Folic Acid 1 mg PO DIRECTED Rifabutin 300 mg PO Q30D Moxifloxacin HCl [Avelox] 400 mg PO Q30D Discontinued Minocycline HCl [Minocin] 100 mg PO Q30D Discharge Medication List Apixaban [Eliquis] 5 mg PO BID 08/22/21 [History] Metoprolol Succinate [Toprol XL] 25 mg PO HS 08/22/21 [History] Gabapentin 300 mg PO HS 05/16/23 [History] predniSONE 10 mg PO DAILY 05/16/23 [History] Amitriptyline HCl [Elavil] 10 mg PO DIRECTED 10/07/23 [History] Ergocalciferol (Vitamin D2) [Drisdol (50,000 Iu)] 1,250 mcg PO DIRECTED 10/07/23 [History] Folic Acid 1 mg PO DIRECTED 10/07/23 [History] Moxifloxacin HCl [Avelox] 400 mg PO Q30D 10/07/23 [History] Pantoprazole [Protonix] 40 mg PO DIRECTED 10/07/23 [History] Rifabutin 300 mg PO Q30D 10/07/23 [History] Timolol 0.5% Ophth Soln [Timoptic 0.5% Ophth Soln] 1 drop TOPICAL BID PRN 10/07/23 [History] metHOTREXate sodium [Methotrexate] 17.5 mg PO Q7D 10/07/23 [History] Doxycycline Hyclate 100 mg PO BID 14 Days #28 tab 10/11/23 [Rx] Follow up Appointment(s)/Referral(s): Sean Garcia DO [Primary Care Provider] - 3 Days [facility] [NON-STAFF] - 1 Week Brad Breaux MD [STAFF PHYSICIAN] - 1 Week Discharge Disposition: HOME WITH HOME HEALTH SERVICES
[2023-10-11] MEDS: VANCOMYCIN 1,500 MG in SODIUM CHLORIDE 0.9% 500 ML 500 ML IVPB SCH (10:50)
[2023-10-14] MEDS ORDERED: ERGOCALCIFEROL 1,250 MCG (50,000 IU) CAPSULE PO SCH (09:00)
--- NOTE | 2023-10-17 14:29 | P.PN ---
Subjective Progress Note Date: 10/11/23 Principal diagnosis: Reason for follow-up is bilateral hand and finger wound and question of cellulitis This is a telehealth visit Patient is a 73-year-old male with a past medical history significant for sarcoidosis patient also have a history of Claw hands and has been recently diagnosed with leprosy, patient did have a left middle finger infection secondary to MRSA in April of 2023 requiring amputation of the left middle finger, now presenting to the hospital with sloughing of the skin and nail on his right middle and left index finger. On today's evaluation that is 10/11/2023 patient continues to be afebrile, the patient is breathing comfortably on room air, the patient denies having any chest pain no significant cough or sputum production patient denies having abdominal pain no nausea no vomiting and no diarrhea has been reported. Patient denies pain to bilateral hand fingers or any drainage Patient did have a creatinine of 0.74 no CBC was done blood cultures so far negative Objective - Vital Signs Vital signs: Vital Signs Temp 97.6 F 10/11/23 02:23 Pulse 64 10/11/23 02:23 Resp 15 10/11/23 02:23 BP 115/68 10/11/23 02:23 Pulse Ox 100 10/11/23 02:23 FiO2 Intake & Output 10/10/23 10/11/23 10/11/23 18:59 06:59 18:59 Intake Total 354 Balance 354 Intake: Oral 354 Other: Voiding Method Toilet # Voids 3 3 - Exam Elderly male lying in bed in no distress Unlabored breathing Bilateral hand fingers with superficial ulceration surrounding redness is improved no foul-smelling drainage reported Exam completed with the help of COMMUNITY HEALTH EDUCATOR - Labs CBC & Chem 7: 10/09/23 05:48 10/11/23 06:34 Labs: Abnormal Lab Results - Last 24 Hours (Table) 10/10/23 Range/Units 05:38 Calcium 8.1 L (8.7-10.3) mg/dL Microbiology - Last 24 Hours (Table) 10/07/23 21:55 Blood Culture - Preliminary Blood Assessment and Plan (1) Finger infection Status: Acute Code(s): L08.9 - LOCAL INFECTION OF THE SKIN AND SUBCUTANEOUS TISSUE, UNSP SNOMED Code(s): 648723320 Plan: 1patient presented to hospital with sloughing of the skin and nails involving h is right middle and the left index finger did have evidence of ulceration and concerning for cellulitis patient last culture positive for MRSA 2-patient has been evaluated by hand surgery not recommending any surgical intervention patient has been referred to the wound care for continue current wound care currently on Aquacel silver to change every 48 hour 3-patient will be given a short course of oral doxycycline on discharge prescription sent to the pharmacy Dictation was produced using [employer] dictation software. please excuse any grammatical, word or spelling errors. Time with Patient: Less than 30
== END 2023-10-11 14:50 | disposition home health service (06) | DRG 935 ==
LOC: EC 17:31 → 6NMEDSUR 23:40 → OBSVTOIN 10-10 08:11
PROVIDERS: ADMIT Family Medicine; ATTEND Family Medicine
DX: T23.242A Burn of second degree of multiple left fingers (nail), including thumb, initial encounter (principal); A30.9 Leprosy, unspecified; T23.241A Burn of second degree of multiple right fingers (nail), including thumb, initial encounter; T79.8XXA Other early complications of trauma, initial encounter; X11.8XXA Contact with other hot tap-water, initial encounter; Y92.009 Unspecified place in unspecified non-institutional (private) residence as the place of occurrence of the external cause; M21.511 Acquired clawhand, right hand; M21.512 Acquired clawhand, left hand; D86.9 Sarcoidosis, unspecified; L08.89 Other specified local infections of the skin and subcutaneous tissue; S61.209A Unspecified open wound of unspecified finger without damage to nail, initial encounter; Z79.01 Long term (current) use of anticoagulants; Z79.631 Long term (current) use of antimetabolite agent; Z82.49 Family history of ischemic heart disease and other diseases of the circulatory system; Z86.14 Personal history of Methicillin resistant Staphylococcus aureus infection; M19.90 Unspecified osteoarthritis, unspecified site; Z79.52 Long term (current) use of systemic steroids; Z79.899 Other long term (current) drug therapy; Z87.891 Personal history of nicotine dependence; Z89.022 Acquired absence of left finger(s)
CPT/HCPCS: 36415; 80048; 80053; 80202; 82565; 83605; 85025; 85652; 86140; 87040; 96365; 96366; 96367; 99285

== ENCOUNTER 2024-01-16 10:07 | Emergency (ER) | payer MEDICARE ==
--- NOTE | 2024-01-16 10:17 | ED ---
Extremity Problem HPI - General Chief complaint: Extremity Problem,Nontraumatic Stated complaint: Swelling in lower L leg Time Seen by Provider: 01/16/24 10:17 Source: patient, RN notes reviewed Limitations: no limitations - History of Present Illness Initial comments: This is a 73-year-old male with a history of A-fib on [facility] emergency department chief complaint of unilateral left lower extremity swelling over the past 2 days. Patient states that he noticed his left leg beginning to swell on Saturday and an ulceration on his anterior distal leg yesterday that his no ticed. He denies any pain, paresthesias, loss of mobility, or recent trauma. He endorses slight dizziness. Denies chest pain, palpitations, dyspna, orthopnea, history of DVT or PE. Patient states that he had a lower extremity injury to his left lower extremity about 50 years ago with a chainsaw. He states after this injury he has experienced vein swelling. - Related Data Home Medications Medication Instructions Recorded Confirmed Apixaban [Eliquis] 5 mg PO BID 08/22/21 01/16/24 Metoprolol Succinate [Toprol XL] 25 mg PO HS 08/22/21 01/16/24 Gabapentin 300 mg PO HS 05/16/23 01/16/24 predniSONE 10 mg PO DAILY 05/16/23 01/16/24 Amitriptyline HCl [Elavil] 10 mg PO DIRECTED 10/07/23 01/16/24 Ergocalciferol (Vitamin D2) 1,250 mcg PO DIRECTED 10/07/23 01/16/24 [Drisdol (50,000 Iu)] Folic Acid 1 mg PO DIRECTED 10/07/23 01/16/24 Moxifloxacin HCl [Avelox] 400 mg PO Q30D 10/07/23 01/16/24 Rifabutin 300 mg PO Q30D 10/07/23 01/16/24 metHOTREXate sodium 17.5 mg PO Q7D 10/07/23 01/16/24 Aspirin EC [Ecotrin Low Dose] 81 mg PO DAILY 01/16/24 01/16/24 Levothyroxine Sodium [Synthroid] 50 mcg PO DAILY 01/16/24 01/16/24 Minocycline HCl [Minocin] 100 mg PO Q30D 01/16/24 01/16/24 Previous Rx's Medication Instructions Recorded Mupirocin 2% Oint [Bactroban 2% 1 applic TOPICAL TID #22 gm 01/16/24 Oint] Allergies Allergy/AdvReac Type Severity Reaction Status Date / Time No Known Allergies Allergy Verified 01/16/24 11:54 Review of Systems ROS Statement: Those systems with pertinent positive or pertinent negative responses have been documented in the HPI. ROS Other: All systems not noted in ROS Statement are negative. Past Medical History Past Medical History: Osteoarthritis (OA) Additional Past Medical History / Comment(s): sarcoidosis. pt takes eliquis but denies afib,Leprosy History of Any Multi-Drug Resistant Organisms: MRSA Date of last positivie culture/infection: 05/18/23 MDRO Source:: Left sencond FInger Past Surgical History: Hernia Repair Additional Past Surgical History / Comment(s): Bilateral Hernia Repair, cataracts Past Anesthesia/Blood Transfusion Reactions: No Reported Reaction Past Psychological History: No Psychological Hx Reported Smoking Status: Former smoker Past Alcohol Use History: None Reported Past Drug Use History: None Reported - Past Family History Father Family Medical History: Congestive Heart Failure (CHF) Mother Family Medical History: Congestive Heart Failure (CHF) General Exam Limitations: no limitations General appearance: alert, in no apparent distress Head exam: Present: atraumatic, normocephalic, normal inspection Eye exam: Present: normal appearance, PERRL, EOMI. Absent: scleral icterus, conjunctival injection, periorbital swelling ENT exam: Present: normal exam, mucous membranes moist Neck exam: Present: normal inspection. Absent: tenderness, meningismus, lymphadenopathy Respiratory exam: Present: normal lung sounds bilaterally. Absent: respiratory distress, wheezes, rales, rhonchi, stridor Cardiovascular Exam: Present: regular rate, irregular rhythm (A Fib), normal heart sounds. Absent: systolic murmur, diastolic murmur, rubs, gallop, clicks GI/Abdominal exam: Present: soft, normal bowel sounds. Absent: distended, tenderness, guarding, rebound, rigid Left Lower Leg exam: Present: full ROM, swelling (2+ edema), laceration. Absent: tenderness, ecchymosis, deformity, crepitus, dislocation, erythema Foot/Toe exam: Present: swelling (2+ edema). Absent: abrasion, laceration Neurovascular tendon exam: Absent: motor deficit, sensory deficit, tendon deficit, extremity cold to touch, foot drop Back exam: Present: normal inspection Neurological exam: Present: alert, oriented X3, CN II-XII intact Psychiatric exam: Present: normal affect, normal mood Skin exam: Present: dry, intact, normal color. Absent: cyanosis, diaphoretic, erythema Course Vital Signs 01/16/24 01/16/24 01/16/24 10:12 11:43 12:17 Temperature 97.6 F 98.1 F 97.7 F Pulse Rate 79 74 80 Respiratory 16 18 18 Rate Blood Pressure 104/67 110/75 131/74 O2 Sat by Pulse 98 99 100 Oximetry Medical Decision Making - Medical Decision Making Was pt. sent in by a medical professional or institution (, PA, WINDOWS DESKTOP ENGINEER, urgent care, hospital, or alf...) When possible be specific @ -No Did you speak to anyone other than the patient for history (EMS, parent, family, police, friend...)? What history was obtained from this source @ -No Did you review nursing and triage notes (agree or disagree)? Why? @ -I reviewed and agree with nursing and triage notes Were old charts reviewed (outside hosp., previous admission, EMS record, old EKG, old radiological studies, urgent care reports/EKG's, alf records)? Report findings @ -Patient's charts were reviewed showing that he he has had a history of MRSA infection in addition to being diagnosed with leprosy. Differential Diagnosis (chest pain, altered mental status, abdominal pain women, abdominal pain men, vaginal bleeding, weakness, fever, dyspnea, syncope, headache, dizziness, GI bleed, back pain, seizure, CVA, palpatations, mental health, musculoskeletal)? @ -DVT, venous stasis, cellulitis, venous insufficiency, congestive heart failure, soft tissue infection, this list is not all inclusive EKG interpreted by me (3pts min.). @ -Completed at 1043 rhythm atrial fibrillation, ventricular rate 71, QTc 406. No acute signs of ischemia. X-rays interpreted by me (1pt min.). @ -None done CT interpreted by me (1pt min.). @ -None done U/S interpreted by me (1pt. min.). @ -Pleated duplex ultrasound of the left lower extremity no evidence of DVT What testing was considered but not performed or refused? (CT, X-rays, U/S, labs)? Why? @ -None What meds were considered but not given or refused? Why? @ -None Did you discuss the management of the patient with other professionals (professionals i.e. , PA, WINDOWS DESKTOP ENGINEER, lab, RT, psych nurse, social sciences research scientist, accounting machine mechanic, teacher, special forces officer, telephonic case manager)? Give summary @ -No Was smoking cessation discussed for >3mins.? @ -No Was critical care preformed (if so, how long)? @ -No Were there social determinants of health that impacted care today? How? (Homelessness, low income, unemployed, alcoholism, drug addiction, transportation, low edu. Level, literacy, decrease access to med. care, prison, rehab)? @ -No Was there de-escalation of care discussed even if they declined (Discuss DNR or withdrawal of care, Hospice)? DNR status @ -No What co-morbidities impacted this encounter? (DM, HTN, Smoking, COPD, CAD, Cancer, CVA, ARF, Chemo, Hep., AIDS, mental health diagnosis, sleep apnea, morbi d obesity)? @ -None Was patient admitted / discharged? Hospital course, mention meds given and route , prescriptions, significant lab abnormalities, going to OR and other pertinent info. @ -73-year-old male with a complaint of left lower extremity edema. On examination patient noted to have 2+ pedal edema and pitting edema on his distal left lower extremity. Patient is neurovascularly intact. On skin examination there is a 1 cm ulceration on the anterior left. interpretation of laboratory results are unremarkable, CBC, CMP and coagulation profile within normal limits, BNP non-elevated. US unremarkable for signs of DVT. After review of lab work and DVT low clinical suspicion for emergent cause at this time. Recommend that patient compression stockings to minimize venous stasis and prescription for bacitracin and will be sent in regard to anterior wound on patient's left lower extremity. Recommend that patient follows up with his primary care provider next week for further evaluation. Patient is in agreement with plan. Discussed tricked return parameters. Case discussed with Dr. Larios Undiagnosed new problem with uncertain prognosis? @ -No Drug Therapy Rerequiring intensive monitoring for toxicity (Heparin, Nitro, Insulin, Cardizem)? @ -No Were any procedures done? @ -No Diagnosis/symptom? @ -left unilateral lower extremity swelling, venous stasis, ulcer Acute, or Chronic, or Acute on Chronic? @ -acute Uncomplicated (without systemic symptoms) or Complicated (systemic symptoms)? @ -uncomplicated Side effects of treatment? @ -No Exacerbation, Progression, or Severe Exacerbation? @ -No Poses a threat to life or bodily function? How? (Chest pain, [place], [place], pneumonia, PE, COPD, DKA, ARF, appy, cholecystitis, CVA, Diverticulitis, Homicidal, Suicid al, threat to staff... and all critical care pts) @ -unlikley - Lab Data Result diagrams: 01/16/24 10:36 01/16/24 10:36 Lab Results 01/16/24 01/16/24 01/16/24 Range/Units 10:36 10:36 10:36 WBC 8.6 (3.8-10.6) k/uL RBC 4.42 (4.30-5.90) m/uL Hgb 13.5 (13.0-17.5) gm/dL Hct 41.9 (39.0-53.0) % MCV 94.8 (80.0-100.0) fL MCH 30.6 (25.0-35.0) pg MCHC 32.2 (31.0-37.0) g/dL RDW 14.1 (11.5-15.5) % Plt Count 218 (150-450) k/uL MPV 7.7 Neutrophils % 83 % Lymphocytes % 10 % Monocytes % 5 % Eosinophils % 0 % Basophils % 0 % Neutrophils # 7.2 (1.3-7.7) k/uL Lymphocytes # 0.9 L (1.0-4.8) k/uL Monocytes # 0.4 (0-1.0) k/uL Eosinophils # 0.0 (0-0.7) k/uL Basophils # 0.0 (0-0.2) k/uL PT 11.1 (10.0-12.5) sec INR 1.0 (<1.2) APTT 28.1 (22.0-30.0) sec Sodium 139 (137-145) mmol/L Potassium 4.4 (3.5-5.1) mmol/L Chloride 105 (98-107) mmol/L Carbon Dioxide 29 (22-30) mmol/L Anion Gap 5 mmol/L BUN 18 (9-20) mg/dL Creatinine 0.82 (0.66-1.25) mg/dL Est GFR (CKD-EPI)AfAm >90 (>60 ml/min/1.73 sqM) Est GFR (CKD-EPI)NonAf 88 (>60 ml/min/1.73 sqM) Glucose 115 H (74-99) mg/dL Calcium 8.6 (8.4-10.2) mg/dL Magnesium 2.0 (1.6-2.3) mg/dL Total Bilirubin 0.6 (0.2-1.3) mg/dL AST 25 (17-59) U/L ALT 8 (4-49) U/L Alkaline Phosphatase 63 (38-126) U/L NT-Pro-B Natriuret Pep 428 pg/mL Total Protein 6.8 (6.3-8.2) g/dL Albumin 3.4 L (3.5-5.0) g/dL Disposition Clinical Impression: Venous insufficiency of left leg, Lower extremity ulceration, History of MRSA infection Narrative: Please return to the Emergency Department if symptoms worsen or any other concerns. Recommend use of compression stockings and elevated affected leg. Apply topical antibiotic ointment to ulceration on anterior pride. Follow up with your primary care provider in the next week for fruther evaluation. Disposition: HOME SELF-CARE Condition: Good Instructions (If sedation given, give patient instructions): Leg Edema (ED), Venous Insufficiency (DC) Prescriptions: Mupirocin 2% Oint [Bactroban 2% Oint] 1 applic TOPICAL TID #22 gm Is patient prescribed a controlled substance at d/c from ED?: No Referrals: Sean Garcia DO [Primary Care Provider] - 1-2 days Time of Disposition: 12:07
[2024-01-16 10:52] LABS: Basophils % (A) 0 %; Eosinophils % (A) 0 %; HCT 41.9 % (39.0-53.0); HGB 13.5 gm/dL (13.0-17.5); Lymphocytes # (A) 0.9 k/uL (1.0-4.8); Lymphocytes % (A) 10 %; MCH 30.6 pg (25.0-35.0); MCHC 32.2 g/dL (31.0-37.0); MCV 94.8 fL (80.0-100.0); Mean Platelet Volume 7.7; Monocytes # (A) 0.4 k/uL (0-1.0); Monocytes % (A) 5 %; Neutrophils # (A) 7.2 k/uL (1.3-7.7); Neutrophils % (A) 83 %; Platelet Count 218 k/uL (150-450); RBC 4.42 m/uL (4.30-5.90); RDW 14.1 % (11.5-15.5); WBC 8.6 k/uL (3.8-10.6)
[2024-01-16 10:56] LABS: ALT 8 U/L (4-49); AST 25 U/L (17-59); African American GFR (CKD) >90 (>60 ml/min/1.73 sqM); Albumin 3.4 g/dL (3.5-5.0); Alkaline Phosphatase 63 U/L (38-126); Anion Gap 5 mmol/L; Blood Urea Nitrogen 18 mg/dL (9-20); Calcium 8.6 mg/dL (8.4-10.2); Carbon Dioxide 29 mmol/L (22-30); Chloride 105 mmol/L (98-107); Glucose 115 mg/dL (74-99); Non-African American GFR(CKD) 88 (>60 ml/min/1.73 sqM); Potassium 4.4 mmol/L (3.5-5.1); Sodium 139 mmol/L (137-145); Total Bilirubin 0.6 mg/dL (0.2-1.3); Total Protein 6.8 g/dL (6.3-8.2)
[2024-01-16 10:57] LABS: Partial Thromboplastin Time 28.1 sec (22.0-30.0); Prothrombin Time 11.1 sec (10.0-12.5)
[2024-01-16 11:03] LABS: NT-Pro-B-Type Natriuretic Pept 428 pg/mL
--- NOTE | 2024-01-16 11:50 | US ---
EXAMINATION TYPE: US venous doppler duplex LE LT DATE OF EXAM: 01/16/2024 10:26 AM COMPARISON: 03/06/2021 CLINICAL INDICATION: Male, 73 years old with history of unilateral leg swelling; Edema left leg for 2 days SIDE PERFORMED: left TECHNIQUE: The lower extremity deep venous system is examined utilizing real time linear array sonog jorge with graded compression, doppler sonography and color-flow sonography. VESSELS IMAGED: Common Femoral Vein Deep Femoral Vein Greater Saphenous Vein * Femoral Vein Popliteal Vein Small Saphenous Vein * Proximal Calf Veins (* superficial vessels) Left Leg: No evidence of DVT IMPRESSION: Grayscale, color doppler, spectral doppler imaging performed of the deep veins of the lo wer extremities. There is normal flow, compressibility, vascular waveforms.
[2024-01-16 12:24] VITALS: BP 131/74; PULSE 80; RESP 18; TEMP 97.7
== END 2024-01-16 12:33 | disposition home or self-care (01) ==
LOC: EC 10:07
DX: I87.2 Venous insufficiency (chronic) (peripheral) (principal); L97.929 Non-pressure chronic ulcer of unspecified part of left lower leg with unspecified severity; Z86.14 Personal history of Methicillin resistant Staphylococcus aureus infection; Z87.891 Personal history of nicotine dependence
CPT/HCPCS: 36415; 80053; 83735; 83880; 85025; 85610; 85730; 93005; 99284

== ENCOUNTER 2024-01-27 15:55 | Inpatient (IN) | payer MEDICARE ==
--- NOTE | 2024-01-27 17:02 | ED ---
Extremity Problem HPI - General Chief complaint: Extremity Problem,Nontraumatic Stated complaint: L Foot Laceration Time Seen by Provider: 01/27/24 16:15 Source: patient, RN notes reviewed Mode of arrival: ambulatory Limitations: no limitations - History of Present Illness Initial comments: 73-year-old male presenting with left foot infection x 2 days. Reports he noticed a "hole" in the bottom of his left foot 2 days ago and is concerned this could be an ulceration. He has had issues with cellulitis in the past where he has had multiple amputations. He regularly follows with station tender, states he has upcoming appointment in 3 days. He states he has limited sensation in his bilateral feet and denies any new swelling, known injury, pain, drainage. Denies fever, chest pain, shortness of breath. - Related Data Home Medications Medication Instructions Recorded Confirmed Apixaban [Eliquis] 5 mg PO BID 08/22/21 01/16/24 Metoprolol Succinate [Toprol XL] 25 mg PO HS 08/22/21 01/16/24 Gabapentin 300 mg PO HS 05/16/23 01/16/24 predniSONE 10 mg PO DAILY 05/16/23 01/16/24 Amitriptyline HCl [Elavil] 10 mg PO DIRECTED 10/07/23 01/16/24 Ergocalciferol (Vitamin D2) 1,250 mcg PO DIRECTED 10/07/23 01/16/24 [Drisdol (50,000 Iu)] Folic Acid 1 mg PO DIRECTED 10/07/23 01/16/24 Moxifloxacin HCl [Avelox] 400 mg PO Q30D 10/07/23 01/16/24 Rifabutin 300 mg PO Q30D 10/07/23 01/16/24 metHOTREXate sodium [Methotrexate] 17.5 mg PO Q7D 10/07/23 01/16/24 Aspirin EC [Ecotrin Low Dose] 81 mg PO DAILY 01/16/24 01/16/24 Levothyroxine Sodium [Synthroid] 50 mcg PO DAILY 01/16/24 01/16/24 Minocycline HCl [Minocin] 100 mg PO Q30D 01/16/24 01/16/24 Previous Rx's Medication Instructions Recorded Mupirocin 2% Oint [Bactroban 2% 1 applic TOPICAL TID #22 gm 01/16/24 Oint] Allergies Allergy/AdvReac Type Severity Reaction Status Date / Time No Known Allergies Allergy Verified 01/16/24 11:54 Review of Systems ROS Statement: Those systems with pertinent positive or pertinent negative responses have been documented in the HPI. ROS Other: All systems not noted in ROS Statement are negative. Past Medical History Past Medical History: Osteoarthritis (OA) Additional Past Medical History / Comment(s): sarcoidosis. pt takes eliquis but denies afib,Leprosy History of Any Multi-Drug Resistant Organisms: MRSA Date of last positivie culture/infection: 05/18/23 MDRO Source:: Left sencond FInger Past Surgical History: Hernia Repair Additional Past Surgical History / Comment(s): Bilateral Hernia Repair, cataracts Past Anesthesia/Blood Transfusion Reactions: No Reported Reaction Past Psychological History: No Psychological Hx Reported Smoking Status: Former smoker Past Alcohol Use History: None Reported Past Drug Use History: None Reported - Past Family History Father Family Medical History: Congestive Heart Failure (CHF) Mother Family Medical History: Congestive Heart Failure (CHF) General Exam Limitations: no limitations General appearance: alert, in no apparent distress Left Lower Leg exam: Present: full ROM, swelling. Absent: normal inspection (Left lower leg is erythematous with 1+ pitting edema. There is a 1 x 1 cm ulceration on center of dorsum of left foot, no active bleeding or drainage. Minimal surrounding erythema. Sensation present in bilateral lower extremities.), tenderness Ankle exam: Present: full ROM, swelling. Absent: tenderness Foot/Toe exam: Present: full ROM, swelling. Absent: tenderness Neurovascular tendon exam: Present: no vascular compromise. Absent: abnormal cap refill Course Vital Signs 01/27/24 01/27/24 16:09 17:54 Temperature 99.7 F H 99.8 F H Pulse Rate 94 94 Respiratory 16 17 Rate Blood Pressure 96/52 100/51 O2 Sat by Pulse 97 99 Oximetry Medical Decision Making - Medical Decision Making Was pt. sent in by a medical professional or institution (FABIOLA Bain, LATHE TENDER, urgent care, hospital, or half-way...) When possible be specific @ -[No] Did you speak to anyone other than the patient for history (EMS, parent, family, police, friend...)? What history was obtained from this source @ -[No] Did you review nursing and triage notes (agree or disagree)? Why? @ -[I reviewed and agree with nursing and triage notes] Were old charts reviewed (outside hosp., previous admission, EMS record, old EKG, old radiological studies, urgent care reports/EKG's, half-way records)? Report findings @ -[No old charts were reviewed] Differential Diagnosis (chest pain, altered mental status, abdominal pain women, abdominal pain men, vaginal bleeding, weakness, fever, dyspnea, syncope, headache, dizziness, GI bleed, back pain, seizure, CVA, palpatations, mental health, musculoskeletal)? @ -Cellulitis, ulceration, sepsis, DVT, laceration, abscess EKG interpreted by me (3pts min.). @ -[As above] X-rays interpreted by me (1pt min.). @ -X-ray of left foot revealed no acute process or signs of osteomyelitis CT interpreted by me (1pt min.). @ -[None done] U/S interpreted by me (1pt. min.). @ -[None done] What testing was considered but not performed or refused? (CT, X-rays, U/S, labs)? Why? @ -[None] What meds were considered but not given or refused? Why? @ -[None] Did you discuss the management of the patient with other professionals (professionals i.e. , PA, LATHE TENDER, lab, RT, psych nurse, manager social work, burring wheel operator, teacher, medical laboratory technical officer, manager of case management)? Give summary @ -Case discussed with Dr. Garcia who accepted admission due to diabetic ulceration meeting sepsis criteria Was smoking cessation discussed for >3mins.? @ -[No] Was critical care preformed (if so, how long)? @ -[No] Were there social determinants of health that impacted care today? How? (Homelessness, low income, unemployed, alcoholism, drug addiction, transportation, low edu. Level, literacy, decrease access to med. care, long-term, rehab)? @ -[No] Was there de-escalation of care discussed even if they declined (Discuss DNR or withdrawal of care, Hospice)? DNR status @ -[No] What co-morbidities impacted this encounter? (DM, HTN, Smoking, COPD, CAD, Cancer, CVA, ARF, Chemo, Hep., AIDS, mental health diagnosis, sleep apnea, morbid obesity)? @ -[None] Was patient admitted / discharged? Hospital course, mention meds given and route, prescriptions, significant lab abnormalities, going to OR and other pertinent info. @ -Patient was admitted. Patient was seen and evaluated for left foot ulceration x 2 days. Patient is neurovascularly intact. Vital signs significant for temperature of 99.8 F and heart rate 94 bpm. Physical exa mination remarkable for a grade 1 ulceration on ventral aspect of left foot. Lab work remarkable for white blood cell count of 14.7. X-ray negative for osteomyelitis. Patient meets sepsis criteria and was started on IV vancomycin, IV Rocephin, and IV fluids. Case discussed with Dr. Garcia who accepted admission due to diabetic ulceration meeting sepsis criteria. ID consulted Undiagnosed new problem with uncertain prognosis? @ -[No] Drug Therapy requiring intensive monitoring for toxicity (Heparin, Nitro, Insulin, Cardizem)? @ -[No] Were any procedures done? @ -[No] Diagnosis/symptom? @ -Grade 1 left foot ulceration, sepsis Acute, or Chronic, or Acute on Chronic? @ -Acute Uncomplicated (without systemic symptoms) or Complicated (systemic symptoms)? @ -Complicated Side effects of treatment? @ -[No] Exacerbation, Progression, or Severe Exacerbation? @ -[No] Poses a threat to life or bodily function? How? (Chest pain, [place], [place], pneumonia, PE, COPD, DKA, ARF, appy, cholecystitis, CVA, Diverticulitis, Homicidal, Suicidal, threat to staff... and all critical care pts) @ -Yes, sepsis - Lab Data Result diagrams: 01/27/24 16:52 01/27/24 16:52 Lab Results 01/27/24 01/27/24 01/27/24 Range/Units 16:52 16:52 16:52 WBC 14.7 H (3.8-10.6) k/uL RBC 4.19 L (4.30-5.90) m/uL Hgb 12.5 L (13.0-17.5) gm/dL Hct 39.4 (39.0-53.0) % MCV 94.1 (80.0-100.0) fL MCH 29.8 (25.0-35.0) pg MCHC 31.6 (31.0-37.0) g/dL RDW 14.0 (11.5-15.5) % Plt Count 215 (150-450) k/uL MPV 8.5 Neutrophils % 82 % Lymphocytes % 8 % Monocytes % 7 % Eosinophils % 0 % Basophils % 1 % Neutrophils # 12.0 H (1.3-7.7) k/uL Lymphocytes # 1.2 (1.0-4.8) k/uL Monocytes # 1.0 (0-1.0) k/uL Eosinophils # 0.0 (0-0.7) k/uL Basophils # 0.2 (0-0.2) k/uL PT 12.5 (10.0-12.5) sec INR 1.2 H (<1.2) APTT 30.8 H (22.0-30.0) sec Sodium 135 L (137-145) mmol/L Potassium 4.0 (3.5-5.1) mmol/L Chloride 104 (98-107) mmol/L Carbon Dioxide 24 (22-30) mmol/L Anion Gap 7 mmol/L BUN 23 H (9-20) mg/dL Creatinine 1.11 (0.66-1.25) mg/dL Est GFR (CKD-EPI)AfAm 76 (>60 ml/min/1.73 sqM) Est GFR (CKD-EPI)NonAf 66 (>60 ml/min/1.73 sqM) Glucose 128 H (74-99) mg/dL Calcium 8.2 L (8.4-10.2) mg/dL Total Bilirubin 1.0 (0.2-1.3) mg/dL AST 33 (17-59) U/L ALT 13 (4-49) U/L Alkaline Phosphatase 60 (38-126) U/L Total Protein 6.7 (6.3-8.2) g/dL Albumin 3.1 L (3.5-5.0) g/dL Disposition Clinical Impression: Foot ulcer, left, Sepsis Disposition: ADMITTED IP TO THIS [facility] Condition: Stable Referrals: Sean Garcia DO [Primary Care Provider] - 1-2 days Time of Disposition: 19:13
[2024-01-27 17:13] LABS: INR 1.2 (<1.2); Partial Thromboplastin Time 30.8 sec (22.0-30.0); Prothrombin Time 12.5 sec (10.0-12.5)
[2024-01-27 17:14] LABS: ALT 13 U/L (4-49); AST 33 U/L (17-59); African American GFR (CKD) 76 (>60 ml/min/1.73 sqM); Albumin 3.1 g/dL (3.5-5.0); Alkaline Phosphatase 60 U/L (38-126); Anion Gap 7 mmol/L; Blood Urea Nitrogen 23 mg/dL (9-20); Calcium 8.2 mg/dL (8.4-10.2); Carbon Dioxide 24 mmol/L (22-30); Chloride 104 mmol/L (98-107); Glucose 128 mg/dL (74-99); Non-African American GFR(CKD) 66 (>60 ml/min/1.73 sqM); Sodium 135 mmol/L (137-145); Total Protein 6.7 g/dL (6.3-8.2)
--- NOTE | 2024-01-27 17:18 | XR ---
EXAMINATION TYPE: XR foot complete LT DATE OF EXAM: 01/27/2024 4:59 PM CLINICAL INDICATION:Male, 73 years old with history of left foot ulceration; [facility] COMPARISON: None TECHNIQUE: XR foot complete LT examined in the AP, oblique, and lateral projections. FINDINGS: Fixation hardware of the first digit metatarsophalangeal joint with hardware intact. There is poor vi sualization of the joint due to the hardware there is thought to be partial osseous fusion. No eviden ce for osseous erosion. No evidence for fracture. Mild soft tissue swelling around the first digit. C alcaneal plantar spurring present. This course of the arterial vasculature. Ulcer along the plantar s urface of the forefoot for to be present. IMPRESSION: 1. No evidence of acute fracture. 2. Postsurgical changes to the metatarsophalangeal joint of the first digit with partial osseous fus ion suggested. 3. No evidence for osseous erosion to suggest osteomyelitis.
[2024-01-27 17:19] LABS: Basophils # (A) 0.2 k/uL (0-0.2); Basophils % (A) 1 %; Eosinophils % (A) 0 %; HCT 39.4 % (39.0-53.0); HGB 12.5 gm/dL (13.0-17.5); Lymphocytes # (A) 1.2 k/uL (1.0-4.8); Lymphocytes % (A) 8 %; MCH 29.8 pg (25.0-35.0); MCHC 31.6 g/dL (31.0-37.0); MCV 94.1 fL (80.0-100.0); Mean Platelet Volume 8.5; Monocytes % (A) 7 %; Neutrophils % (A) 82 %; Platelet Count 215 k/uL (150-450); RBC 4.19 m/uL (4.30-5.90); WBC 14.7 k/uL (3.8-10.6)
[2024-01-27] MEDS ORDERED: VANCOMYCIN IV PER PHARMACY 1 EACH MISC MISCELLANE PRN (18:35)
[2024-01-27] MEDS: SODIUM CHLORIDE 0.9% 1,000 ML IV STA (18:58)
[2024-01-27] MEDS ORDERED: NALOXONE 0.4 MG/ML 1 ML VIAL IV PRN ×2 (19:13→20:07)
[2024-01-27] MEDS: ACETAMINOPHEN TAB 325 MG TAB PO STA (19:46)
[2024-01-27] MEDS: VANCOMYCIN 1,500 MG in SODIUM CHLORIDE 0.9% 500 ML 500 ML IVPB STA (19:47)
[2024-01-27] MEDS ORDERED: ONDANSETRON 4 MG/2 ML VIAL IVP PRN (20:07)
[2024-01-27] MEDS ORDERED: MORPHINE SULFATE 4 MG/ML SYRINGE IV PRN (20:07)
[2024-01-27] MEDS: SODIUM CHLORIDE 0.9% 1,000 ML IV SCH (22:04)
[2024-01-28] MEDS: VANCOMYCIN 1,500 MG in SODIUM CHLORIDE 0.9% 500 ML 500 ML IVPB SCH (08:21)
[2024-01-28 11:52] LABS: ALT 11 U/L (4-49); AST 38 U/L (17-59); African American GFR (CKD) >90 (>60 ml/min/1.73 sqM); Albumin 2.9 g/dL (3.5-5.0); Albumin/Globulin Ratio 0.8; Alkaline Phosphatase 63 U/L (38-126); Anion Gap 7 mmol/L; Blood Urea Nitrogen 19 mg/dL (9-20); Calcium 8.1 mg/dL (8.4-10.2); Carbon Dioxide 21 mmol/L (22-30); Chloride 109 mmol/L (98-107); Globulin 3.6 g/dL; Glucose 89 mg/dL (74-99); Non-African American GFR(CKD) >90 (>60 ml/min/1.73 sqM); Potassium 4.3 mmol/L (3.5-5.1); Sodium 137 mmol/L (137-145); Total Bilirubin 0.9 mg/dL (0.2-1.3); Total Protein 6.5 g/dL (6.3-8.2)
[2024-01-28 11:59] LABS: Basophils # (A) 0.1 k/uL (0-0.2); Basophils % (A) 0 %; Eosinophils # (A) 0.1 k/uL (0-0.7); Eosinophils % (A) 1 %; HCT 43.6 % (39.0-53.0); HGB 13.5 gm/dL (13.0-17.5); Lymphocytes % (A) 9 %; MCH 29.8 pg (25.0-35.0); MCHC 30.9 g/dL (31.0-37.0); MCV 96.6 fL (80.0-100.0); Mean Platelet Volume 8.2; Monocytes # (A) 0.6 k/uL (0-1.0); Monocytes % (A) 5 %; Neutrophils # (A) 9.4 k/uL (1.3-7.7); Neutrophils % (A) 83 %; Platelet Count 286 k/uL (150-450); RBC 4.52 m/uL (4.30-5.90); RDW 13.9 % (11.5-15.5); WBC 11.3 k/uL (3.8-10.6)
--- NOTE | 2024-01-28 12:53 | P.HPIM ---
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 Denies trauma. Denies denies extremity pain. Denies chest pain, palpitations or shortness of breath. Reports he follows with a insurance adjuster in [place]. Tmax 100.1, WBC 14.7 decreased 11.3, hemoglobin 13.5, platelets 286, INR 1.2, bicarb 21 BUN 19, creatinine 0.63. X-ray of left foot reported no acute fracture, postsurgical changes to the metal tarsalphalangeal joint of the first digit with partial osseous fusion suggested, no evidence for osseous erosion to suggest osteomyelitis. Blood pressures on admission soft, improved. Maintaining O2 sats of 100% on room air. Review of Systems ROS Statement: Those systems with pertinent positive or pertinent negative responses have been documented in the HPI. ROS Other: All systems not noted in ROS Statement are negative. Past Medical History Past Medical History: Osteoarthritis (OA) Additional Past Medical History / Comment(s): sarcoidosis. pt takes eliquis but denies afib,Leprosy History of Any Multi-Drug Resistant Organisms: MRSA Date of last positivie culture/infection: 05/18/23 MDRO Source:: Left sencond FInger Past Surgical History: Hernia Repair Additional Past Surgical History / Comment(s): Bilateral Hernia Repair, cataracts Past Anesthesia/Blood Transfusion Reactions: No Reported Reaction Past Psychological History: No Psychological Hx Reported Smoking Status: Former smoker Past Alcohol Use History: None Reported Past Drug Use History: None Reported - Past Family History Father Family Medical History: Congestive Heart Failure (CHF) Mother Family Medical History: Congestive Heart Failure (CHF) Medications and Allergies Home Medications Medication Instructions Recorded Confirmed Type Apixaban [Eliquis] 5 mg PO BID 08/22/21 01/27/24 History Metoprolol Succinate [Toprol XL] 25 mg PO HS 08/22/21 01/27/24 History Gabapentin 300 mg PO HS 05/16/23 01/27/24 History predniSONE 10 mg PO DAILY 05/16/23 01/27/24 History Amitriptyline HCl [Elavil] 10 mg PO DIRECTED 10/07/23 01/27/24 History Ergocalciferol (Vitamin D2) 1,250 mcg PO DIRECTED 10/07/23 01/27/24 History [Drisdol (50,000 Iu)] Folic Acid 1 mg PO SUMOTUWEFRSA 10/07/23 01/27/24 History Moxifloxacin HCl [Avelox] 400 mg PO Q30D 10/07/23 01/27/24 History Rifabutin 300 mg PO Q30D 10/07/23 01/27/24 History metHOTREXate sodium [Methotrexate] 17.5 mg PO TH 10/07/23 01/27/24 History Aspirin EC [Ecotrin Low Dose] 81 mg PO DAILY 01/16/24 01/27/24 History Levothyroxine Sodium [Synthroid] 50 mcg PO DAILY 01/16/24 01/27/24 History Minocycline HCl [Minocin] 100 mg PO Q30D 01/16/24 01/27/24 History Mupirocin 2% Oint [Bactroban 2% 1 applic TOPICAL TID #22 gm 01/16/24 01/27/24 Rx Oint] Allergies Allergy/AdvReac Type Severity Reaction Status Date / Time No Known Allergies Allergy Verified 01/16/24 11:54 Physical Exam Vitals: Vital Signs Temp Pulse Resp BP Pulse Ox 01/28/24 12:35 98.2 F 107 H 18 109/62 96 01/28/24 11:03 63 17 138/81 97 01/28/24 10:10 97.6 F 60 16 125/85 96 01/28/24 09:00 65 17 130/88 96 01/28/24 08:20 97.4 F L 67 17 124/90 97 01/28/24 05:21 72 16 123/70 100 01/27/24 22:27 97.5 F L 65 17 100/65 100 01/27/24 19:26 100.1 F H 60 18 114/60 99 01/27/24 17:54 99.8 F H 94 17 100/51 99 01/27/24 16:09 99.7 F H 94 16 96/52 97 Intake and Output 01/27/24 01/28/24 01/28/24 22:59 06:59 14:59 Other: Weight 81.647 kg PHYSICAL EXAM: VITAL SIGNS: [As above] GENERAL: Alert and oriented x 3, sitting up in bed,no acute distress HEENT: Normocephalic, Conjunctivae normal. NECK: Supple, No JVD. CARDIOVASCULAR: S1, S2 regular. No murmur RESPIRATION: Unlabored, equal air entry, CTA with bilateral bases diminished. ABDOMEN: Soft, nondistended, nontender . No guarding. No rigidity. +BS. Upper Extremities: Clawing of bilateral hands/digits, left foot. Left plantar/sole center 1 x 1 cm opening with erythema, serosanguineous drainage tenderness, left second digit reddened edematous with crusty drainage at the bottom of the digit on bilateral sides, surrounding it positive DP LEGS: No edema. no swelling. NERVOUS SYSTEM: Cranial N 2-12 grossly normal. No focal deficits. Results CBC & Chem 7: 01/28/24 10:46 01/28/24 10:46 Labs: Abnormal Lab Results - Last 24 Hours (Table) 01/27/24 01/27/24 01/27/24 Range/Units 16:52 16:52 16:52 WBC 14.7 H (3.8-10.6) k/uL RBC 4.19 L (4.30-5.90) m/uL Hgb 12.5 L (13.0-17.5) gm/dL MCHC (31.0-37.0) g/dL Neutrophils # 12.0 H (1.3-7.7) k/uL INR 1.2 H (<1.2) APTT 30.8 H (22.0-30.0) sec Sodium 135 L (137-145) mmol/L Chloride (98-107) mmol/L Carbon Dioxide (22-30) mmol/L BUN 23 H (9-20) mg/dL Creatinine (0.66-1.25) mg/dL Glucose 128 H (74-99) mg/dL Calcium 8.2 L (8.4-10.2) mg/dL Albumin 3.1 L (3.5-5.0) g/dL 01/28/24 01/28/24 Range/Units 10:46 10:46 WBC 11.3 H (3.8-10.6) k/uL RBC (4.30-5.90) m/uL Hgb (13.0-17.5) gm/dL MCHC 30.9 L (31.0-37.0) g/dL Neutrophils # 9.4 H (1.3-7.7) k/uL INR (<1.2) APTT (22.0-30.0) sec Sodium (137-145) mmol/L Chloride 109 H (98-107) mmol/L Carbon Dioxide 21 L (22-30) mmol/L BUN (9-20) mg/dL Creatinine 0.63 L (0.66-1.25) mg/dL Glucose (74-99) mg/dL Calcium 8.1 L (8.4-10.2) mg/dL Albumin 2.9 L (3.5-5.0) g/dL Assessment and Plan Assessment: Sepsis secondary to left plantar ulcer 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 Plan: Continue on current medication regimen ,monitoring and symptomatic treatment. Blood and wound cultures ordered. IV fluid hydration .IV antibiotics of ceftriaxone, vancomycin initiated in the ER infectious disease and wound care consulted. The impression and plan of care has been dictated as directed. : I performed a history and examination of this patient, discussed the same with the dictator. I agree with the dictator's note ,documented as a scribe. Any additional findings or plans will be noted.
[2024-01-28] MEDS ORDERED: ERGOCALCIFEROL 1,250 MCG (50,000 IU) CAPSULE PO SCH (13:00)
[2024-01-28] MEDS ORDERED: RIFABUTIN 150 MG PO SCH (13:00)
[2024-01-28] MEDS ORDERED: MINOCYCLINE HCL 100 MG PO SCH (13:00)
[2024-01-28 13:19] LABS: Magnesium 2.2 mg/dL (1.6-2.3); Phosphorus 3.6 mg/dL (2.5-4.5)
[2024-01-28] MEDS: PANTOPRAZOLE 40 MG/10 ML VIAL IVP SCH (13:49)
[2024-01-28] MEDS: FOLIC ACID 1 MG TAB PO SCH (13:50)
[2024-01-28] MEDS: METOPROLOL SUCCINATE (ER) 25 MG TAB.ER.24H PO SCH (21:03)
[2024-01-28] MEDS: APIXABAN 5 MG TAB PO SCH (21:03)
[2024-01-28] MEDS: AMITRIPTYLINE HCL 10 MG TAB PO SCH (21:03)
[2024-01-28] MEDS: GABAPENTIN 300 MG CAP PO SCH (21:03)
[2024-01-29] MEDS: ACETAMINOPHEN TAB 325 MG TAB PO PRN (03:56)
[2024-01-29] MEDS: LEVOTHYROXINE 50 MCG TAB PO SCH (06:17)
--- NOTE | 2024-01-29 07:05 | P.CONS ---
History of Present Illness - Reason for Consult Consult date: 01/28/24 - History of Present Illness Patient is a 73-year-old male with a past medical history significant for osteoarthritis sarcoidosis history of MRSA infection involving his left second finger,Pt presenting to the hospital for evaluation of left foot infection apparently the patient noticed to have some blood on the floor and subsequently noticed to have swelling redness to the left foot area and more swelling especially to the left second toe patient to have neuropathy and denies pain he did have a ulcer on the plantar aspect which has been draining over the last few days mostly bloodstained patient denies high-grade fever or chills at home however the patient did have a low-grade fever on presentation to the hospital which went up to 100.1 F patient was not tachycardic hypotensive or hypoxic he did have vital of 14.7 with a left shift creatinine has been normal electrolytes are normal liver enzymes are normal blood culture has been obtained which are currently pending patient did have x-ray of the foot no evidence for acute fracture postsurgical changes to the metatarsal phalangeal joint of the fi rst with partial osseous fusion suggested no bony erosion patient was started on vancomycin and admitted to the hospital infectious disease was consulted for further management of antibiotic therapy Past Medical History Past Medical History: Osteoarthritis (OA) Additional Past Medical History / Comment(s): sarcoidosis. pt takes eliquis but denies afib,Leprosy History of Any Multi-Drug Resistant Organisms: MRSA Year Discovered:: 05/18/23 MDRO Source:: Left sencond FInger Past Surgical History: Hernia Repair Additional Past Surgical History / Comment(s): Bilateral Hernia Repair, cataracts Past Anesthesia/Blood Transfusion Reactions: No Reported Reaction Past Psychological History: No Psychological Hx Reported Smoking Status: Former smoker Past Alcohol Use History: None Reported Past Drug Use History: None Reported - Past Family History Father Family Medical History: Congestive Heart Failure (CHF) Mother Family Medical History: Congestive Heart Failure (CHF) Medications and Allergies Home Medications Medication Instructions Recorded Confirmed Type Apixaban [Eliquis] 5 mg PO BID 08/22/21 01/27/24 History Metoprolol Succinate [Toprol XL] 25 mg PO HS 08/22/21 01/27/24 History Gabapentin 300 mg PO HS 05/16/23 01/27/24 History predniSONE 10 mg PO DAILY 05/16/23 01/27/24 History Amitriptyline HCl [Elavil] 10 mg PO DIRECTED 10/07/23 01/27/24 History Ergocalciferol (Vitamin D2) 1,250 mcg PO DIRECTED 10/07/23 01/27/24 History [Drisdol (50,000 Iu)] Folic Acid 1 mg PO SUMOTUWEFRSA 10/07/23 01/27/24 History Moxifloxacin HCl [Avelox] 400 mg PO Q30D 10/07/23 01/27/24 History Rifabutin 300 mg PO Q30D 10/07/23 01/27/24 History metHOTREXate sodium [Methotrexate] 17.5 mg PO TH 10/07/23 01/27/24 History Aspirin EC [Ecotrin Low Dose] 81 mg PO DAILY 01/16/24 01/27/24 History Levothyroxine Sodium [Synthroid] 50 mcg PO DAILY 01/16/24 01/27/24 History Minocycline HCl [Minocin] 100 mg PO Q30D 01/16/24 01/27/24 History Mupirocin 2% Oint [Bactroban 2% 1 applic TOPICAL TID #22 gm 01/16/24 01/27/24 Rx Oint] Allergies Allergy/AdvReac Type Severity Reaction Status Date / Time No Known Allergies Allergy Verified 01/16/24 11:54 Physical Exam Vitals: Vital Signs Temp Pulse Resp BP Pulse Ox 01/28/24 11:03 63 17 138/81 97 01/28/24 10:10 97.6 F 60 16 125/85 96 01/28/24 09:00 65 17 130/88 96 01/28/24 08:20 97.4 F L 67 17 124/90 97 01/28/24 05:21 72 16 123/70 100 01/27/24 22:27 97.5 F L 65 17 100/65 100 01/27/24 19:26 100.1 F H 60 18 114/60 99 01/27/24 17:54 99.8 F H 94 17 100/51 99 01/27/24 16:09 99.7 F H 94 16 96/52 97 Intake and Output 01/27/24 01/28/24 01/28/24 22:59 06:59 14:59 Other: Weight 81.647 kg Results CBC & Chem 7: 01/30/24 06:15 01/30/24 06:15 Labs: Abnormal Lab Results - Last 24 Hours (Table) 01/27/24 01/27/24 01/27/24 Range/Units 16:52 16:52 16:52 WBC 14.7 H (3.8-10.6) k/uL RBC 4.19 L (4.30-5.90) m/uL Hgb 12.5 L (13.0-17.5) gm/dL Neutrophils # 12.0 H (1.3-7.7) k/uL INR 1.2 H (<1.2) APTT 30.8 H (22.0-30.0) sec Sodium 135 L (137-145) mmol/L Chloride (98-107) mmol/L Carbon Dioxide (22-30) mmol/L BUN 23 H (9-20) mg/dL Creatinine (0.66-1.25) mg/dL Glucose 128 H (74-99) mg/dL Calcium 8.2 L (8.4-10.2) mg/dL Albumin 3.1 L (3.5-5.0) g/dL 01/28/24 Range/Units 10:46 WBC (3.8-10.6) k/uL RBC (4.30-5.90) m/uL Hgb (13.0-17.5) gm/dL Neutrophils # (1.3-7.7) k/uL INR (<1.2) APTT (22.0-30.0) sec Sodium (137-145) mmol/L Chloride 109 H (98-107) mmol/L Carbon Dioxide 21 L (22-30) mmol/L BUN (9-20) mg/dL Creatinine 0.63 L (0.66-1.25) mg/dL Glucose (74-99) mg/dL Calcium 8.1 L (8.4-10.2) mg/dL Albumin 2.9 L (3.5-5.0) g/dL Assessment and Plan Plan: 1patient presented to the hospital with left foot swelling redness and drainage in this patient who did have a callus on the plantar aspect of the left foot at the base of the second metatarsal with associated increasing swelling and redness of the second metatarsal concerning for infected callus and possible osteomyelitis 2 we will consult-vascular surgery for debridement of this infected callus and deep culture superficial cultures were obtained today and results will be followed 3-vancomycin pharmacy to dose target trough of 15 while watching kidney function and Vanco trough closely keeping in mind his history of previous MRSA infection We will follow on clinical condition and cultures to further adjust medication if needed Thank you for this consultation we will follow the patient along with you Dictation was produced using [employer] dictation software. please excuse any grammatical, word or spelling errors. Time with Patient: Greater than 30
[2024-01-29 08:35] LABS: African American GFR (CKD) >90 (>60 ml/min/1.73 sqM); Anion Gap 3 mmol/L; Blood Urea Nitrogen 14 mg/dL (9-20); Calcium 7.6 mg/dL (8.4-10.2); Carbon Dioxide 25 mmol/L (22-30); Chloride 108 mmol/L (98-107); Glucose 108 mg/dL (74-99); Non-African American GFR(CKD) >90 (>60 ml/min/1.73 sqM); Potassium 3.9 mmol/L (3.5-5.1); Sodium 136 mmol/L (137-145)
[2024-01-29] MEDS: ASPIRIN 81 MG PO SCH (09:36)
[2024-01-29] MEDS: predniSONE 10 MG TAB PO SCH (09:37)
--- NOTE | 2024-01-29 10:22 | P.GSCN ---
History of Present Illness Consult date: 01/29/24 Reason for Consult: Left foot infected callus for debridement Requesting physician: Brad Breaux History of present illness: This is a pleasant 73-year-old male who presented to the emergency department with increased swelling and redness in his left lower extremity. Apparently patient was here about 2 weeks ago in our emergency department and sent home. He was found to have a wound on the bottom of his left foot. He has history of Pugh's disease and he has no feeling in his feet. He is unsure how long that wound had been there. States that at least 2 weeks. He has no history of peripheral arterial disease or diabetes mellitus. He was seen by infectious disease who was concern for infected callus and consulted vascular surgery for possible debridement. Local wound cultures are currently pending. X-ray of left foot shows no evidence of osteomyelitis. Preliminary blood cultures are negative. Patient had a low-grade fever this morning of 100.3. Leukocytosis on admission. He currently denies any shortness of breath, chest pain, abdominal pain, nausea or vomiting. No pain in his lower extremity is but again he has no feeling. He has contractures of his hands due to his Pugh's disease. With left middle finger amputation. Review of Systems A 14 point review systems was completed all pertinent positives and negatives as stated in the HPI. Past Medical History Past Medical History: Osteoarthritis (OA) Additional Past Medical History / Comment(s): sarcoidosis. pt takes eliquis but denies afib,Leprosy History of Any Multi-Drug Resistant Organisms: MRSA Year Discovered:: 05/18/23 MDRO Source:: Left sencond FInger Past Surgical History: Hernia Repair Additional Past Surgical History / Comment(s): Bilateral Hernia Repair, cataracts Past Anesthesia/Blood Transfusion Reactions: No Reported Reaction Past Psychological History: No Psychological Hx Reported Smoking Status: Former smoker Past Alcohol Use History: None Reported Past Drug Use History: None Reported - Past Family History Father Family Medical History: Congestive Heart Failure (CHF) Mother Family Medical History: Congestive Heart Failure (CHF) Medications and Allergies Home Medications Medication Instructions Recorded Confirmed Type Apixaban [Eliquis] 5 mg PO BID 08/22/21 01/27/24 History Metoprolol Succinate [Toprol XL] 25 mg PO HS 08/22/21 01/27/24 History Gabapentin 300 mg PO HS 05/16/23 01/27/24 History predniSONE 10 mg PO DAILY 05/16/23 01/27/24 History Amitriptyline HCl [Elavil] 10 mg PO DIRECTED 10/07/23 01/27/24 History Ergocalciferol (Vitamin D2) 1,250 mcg PO DIRECTED 10/07/23 01/27/24 History [Drisdol (50,000 Iu)] Folic Acid 1 mg PO SUMOTUWEFRSA 10/07/23 01/27/24 History Moxifloxacin HCl [Avelox] 400 mg PO Q30D 10/07/23 01/27/24 History Rifabutin 300 mg PO Q30D 10/07/23 01/27/24 History metHOTREXate sodium [Methotrexate] 17.5 mg PO TH 10/07/23 01/27/24 History Aspirin EC [Ecotrin Low Dose] 81 mg PO DAILY 01/16/24 01/27/24 History Levothyroxine Sodium [Synthroid] 50 mcg PO DAILY 01/16/24 01/27/24 History Minocycline HCl [Minocin] 100 mg PO Q30D 01/16/24 01/27/24 History Mupirocin 2% Oint [Bactroban 2% 1 applic TOPICAL TID #22 gm 01/16/24 01/27/24 Rx Oint] Allergies Allergy/AdvReac Type Severity Reaction Status Date / Time No Known Allergies Allergy Verified 01/16/24 11:54 Surgical - Exam Vital Signs Temp Pulse Resp BP Pulse Ox 99.7 F H 94 16 96/52 97 01/27/24 16:09 01/27/24 16:09 01/27/24 16:09 01/27/24 16:09 01/27/24 16:09 General appearance: The patient is alert, oriented, appears in no acute distress. HET: Head is normocephalic and atraumatic. Pupils are equal and reactive. Neck: Supple. Heart: Regular. Lungs: Equal expansion, normal respiratory effort. Abdomen: Soft, nontender, nondistended. Extremities: Bilateral palpable DP and PT pulses. Right lower extremity without any swelling. Left lower extremity edema, erythema down the pride and dorsal aspect of foot. Plantar aspect of foot near the ball of the foot with a callus and hole with tunneling. No significant drainage, some scant amount of serosanguineous drainage and no erythema surrounding wound. Neurological: No focal deficits. Bilateral lower extremity with decreased sensation. Results - Labs 01/28/24 10:46 01/29/24 08:02 Abnormal Lab Results - Last 24 Hours (Table) 01/28/24 01/28/24 01/29/24 Range/Units 10:46 10:46 08:02 WBC 11.3 H (3.8-10.6) k/uL MCHC 30.9 L (31.0-37.0) g/dL Neutrophils # 9.4 H (1.3-7.7) k/uL Sodium 136 L (137-145) mmol/L Chloride 109 H 108 H (98-107) mmol/L Carbon Dioxide 21 L (22-30) mmol/L Creatinine 0.63 L (0.66-1.25) mg/dL Glucose 108 H (74-99) mg/dL Calcium 8.1 L 7.6 L (8.4-10.2) mg/dL Albumin 2.9 L (3.5-5.0) g/dL Microbiology - Last 24 Hours (Table) 01/27/24 19:00 Blood Culture - Preliminary Blood 01/27/24 18:59 Blood Culture - Preliminary Blood Diabetes panel 01/28/24 01/29/24 Range/Units 10:46 08:02 Sodium 137 136 L (137-145) mmol/L Potassium 4.3 3.9 (3.5-5.1) mmol/L Chloride 109 H 108 H (98-107) mmol/L Carbon Dioxide 21 L 25 (22-30) mmol/L BUN 19 14 (9-20) mg/dL Creatinine 0.63 L 0.75 (0.66-1.25) mg/dL Glucose 89 108 H (74-99) mg/dL Calcium 8.1 L 7.6 L (8.4-10.2) mg/dL AST 38 (17-59) U/L ALT 11 (4-49) U/L Alkaline Phosphatase 63 (38-126) U/L Total Protein 6.5 (6.3-8.2) g/dL Albumin 2.9 L (3.5-5.0) g/dL Calcium panel 01/28/24 01/29/24 Range/Units 10:46 08:02 Calcium 8.1 L 7.6 L (8.4-10.2) mg/dL Phosphorus 3.6 (2.5-4.5) mg/dL Albumin 2.9 L (3.5-5.0) g/dL Pituitary panel 01/28/24 01/29/24 Range/Units 10:46 08:02 Sodium 137 136 L (137-145) mmol/L Potassium 4.3 3.9 (3.5-5.1) mmol/L Chloride 109 H 108 H (98-107) mmol/L Carbon Dioxide 21 L 25 (22-30) mmol/L BUN 19 14 (9-20) mg/dL Creatinine 0.63 L 0.75 (0.66-1.25) mg/dL Glucose 89 108 H (74-99) mg/dL Calcium 8.1 L 7.6 L (8.4-10.2) mg/dL Adrenal panel 01/28/24 01/29/24 Range/Units 10:46 08:02 Sodium 137 136 L (137-145) mmol/L Potassium 4.3 3.9 (3.5-5.1) mmol/L Chloride 109 H 108 H (98-107) mmol/L Carbon Dioxide 21 L 25 (22-30) mmol/L BUN 19 14 (9-20) mg/dL Creatinine 0.63 L 0.75 (0.66-1.25) mg/dL Glucose 89 108 H (74-99) mg/dL Calcium 8.1 L 7.6 L (8.4-10.2) mg/dL Total Bilirubin 0.9 (0.2-1.3) mg/dL AST 38 (17-59) U/L ALT 11 (4-49) U/L Alkaline Phosphatase 63 (38-126) U/L Total Protein 6.5 (6.3-8.2) g/dL Albumin 2.9 L (3.5-5.0) g/dL - Imaging Comments: Left foot x-ray reports no evidence of acute fracture. Postsurgical changes to the metatarsal phalangeal joint of the first digit with partial osseous fusion suggested. No evidence for osseous erosion to suggest osteomyelitis. Assessment and Plan Assessment: 1. Infected Left foot wound 2. Left lower extremity cellulitis 3. Pugh's disease 4. 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 Continue with antibiotic recommendations from infectious disease 2. Hold anticoagulation for possible surgical debridement 3. Await further recommendations from wound care clinic 4. Further recommendations forthcoming per vascular surgeon Thank you for this consultation, we will continue to follow. The impression and plan of care has been dictated as directed. I performed a history and examination of this patient, discussed the same with the dictator. I agree with the dictator's note ,documented as a scribe. Any additional findings or plans will be noted.
[2024-01-29 10:31] LABS: Basophils # (A) 0.03 X 10*3/uL (0.00-0.10); Basophils % (A) 0.3 %; Eosinophils # (A) 0.17 X 10*3/uL (0.04-0.35); Eosinophils % (A) 1.9 %; HCT 32.1 % (39.6-50.0); HGB 10.2 g/dL (13.0-17.0); Lymphocytes # (A) 1.17 X 10*3/uL (0.90-5.00); Lymphocytes % (A) 12.9 %; MCH 29.7 pg (27.0-32.0); MCHC 31.8 g/dL (32.0-37.0); MCV 93.6 FL (80.0-97.0); Monocytes # (A) 0.74 X 10*3/uL (0.20-1.00); Monocytes % (A) 8.2 %; NRBC Per 100 WBC 0 X 10*3/uL (0.00-0.01); Neutrophils % (A) 76.1 %; Platelet Count 266 X 10*3/uL (140-440); RBC 3.43 X 10*6/uL (4.40-5.60); RDW 14.3 % (11.5-14.5); WBC 9.06 X 10*3/uL (4.50-10.00)
--- NOTE | 2024-01-29 13:59 | P.PN ---
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 Denies trauma. Denies denies extremity pain. Denies chest pain, palpitations or shortness of breath. 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 Tmax 100.1, WBC 14.7 decreased 11.3, hemoglobin 13.5, platelets 286, INR 1.2, bicarb 21 BUN 19, creatinine 0.63. X-ray of left foot reported no acute fracture, postsurgical changes to the metal tarsalphalangeal joint of the first digit with partial osseous fusion suggested, no evidence for osseous erosion to suggest osteomyelitis. Blood pressures on admission soft, improved. Maintaining O2 sats of 100% on room air. 01/29/2024 evaluated by infectious disease, vascular surgery and wound care team/clinic, recommendations noted. Bedside debridement currently being discussed as per vascular surgery. Tmax 100.3, leukocytosis on admission resolved, WBC 9.06; continues on IV antibiotics of vancomycin. Renal function stable Objective - Vital Signs Vital signs: Vital Signs Temp 97.9 F 01/29/24 07:00 Pulse 68 01/29/24 07:00 Resp 16 01/29/24 07:00 BP 100/58 01/29/24 07:00 Pulse Ox 100 01/29/24 07:00 FiO2 Intake & Output 01/28/24 01/29/24 01/29/24 18:59 06:59 18:59 Weight 81.647 kg Other: Voiding Method Toilet # Voids 2 - Exam PHYSICAL EXAM: VITAL SIGNS: [As above] GENERAL: Alert and oriented x 3, sitting up in bed,no acute distress HEENT: Normocephalic, Conjunctivae normal. NECK: Supple, No JVD. CARDIOVASCULAR: S1, S2 regular. No murmur RESPIRATION: Unlabored, equal air entry, CTA with bilateral bases diminished. ABDOMEN: Soft, nondistended, nontender . No guarding. No rigidity. +BS. Upper Extremities: Clawing /contractures of bilateral hands/digits, left foot dressing clean dry and intact. positive DP pulse. LEGS: No edema. no swelling. NERVOUS SYSTEM: Cranial N 2-12 grossly normal. No focal deficits. - Labs CBC & Chem 7: 01/29/24 08:02 01/29/24 08:02 Labs: Abnormal Lab Results - Last 24 Hours (Table) 01/28/24 01/28/24 01/29/24 Range/Units 10:46 10:46 08:02 WBC 11.3 H (3.8-10.6) k/uL MCHC 30.9 L (31.0-37.0) g/dL Neutrophils # 9.4 H (1.3-7.7) k/uL Sodium 136 L (137-145) mmol/L Chloride 109 H 108 H (98-107) mmol/L Carbon Dioxide 21 L (22-30) mmol/L Creatinine 0.63 L (0.66-1.25) mg/dL Glucose 108 H (74-99) mg/dL Calcium 8.1 L 7.6 L (8.4-10.2) mg/dL Albumin 2.9 L (3.5-5.0) g/dL Microbiology - Last 24 Hours (Table) 01/27/24 19:00 Blood Culture - Preliminary Blood 01/27/24 18:59 Blood Culture - Preliminary Blood Assessment and Plan Assessment: Sepsis secondary to left plantar ulcer 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 Plan: Continue on current medication regimen ,monitoring and symptomatic treatment. Hold Eliquis, bedside debridement tentatively for tomorrow with vascular surgery. Blood and wound cultures in progress. Maintain IV fluid hydration .IV antibiotics as per infectious disease. Close monitoring of renal function with repeat labs ordered for a.m. The impression and plan of care has been dictated as directed. : I performed a history and examination of this patient, discussed the same with the dictator. I agree with the dictator's note ,documented as a scribe. Any additional findings or plans will be noted.
--- NOTE | 2024-01-29 14:06 | P.CONS ---
History of Present Illness - Reason for Consult Consult date: 01/29/24 wound care - History of Present Illness This is a 73-year-old patient known to the wound care center with a nonhealing ulceration to the left foot. Patient has history of leprosy and neuropathy denies diabetes. Patient has a ulceration to the left plantar forefoot measuring approximately 0.5 x 0.5 x 3 cm x-ray did not show any fracture or bone destruction however patient has significant tunneling noted to the site. Mazin walker has sanguinous drainage. In his second digit of his left foot shows deformity. Patient denies any injury. He noticed that he had some swelling in his lower extremity approximately 2 weeks ago he went to the ER and was told to follow-up with his primary care doctor and utilize compression which he did. [place] when he noticed blood on his floor resulting in finding the ulceration. Review Of Systems: Constitutional: No fever, no chills, no night sweats. No weight change. No weakness, fatigue or lethargy. No daytime sleepiness. Integumentary:reports wounds, no lesions. No rash or pruritus. No unusual bruising. No change in hair or nails. Physical exam: General Appearance: Alert, cooperative, no distress, appears stated age. Skin: See HPI all other Skin color, texture, tugor normal, no rashes or lesions. Neurologic: Alert oriented x3 Assessment: 1. Nonhealing ulceration of left foot with muscle involvement without necrosis 2. Leprosy 3. Neuropathy Plan: 1. Apply absorptive silver rope saline moist gauze, dry gauze, rolled gauze and secure with paper tape. Change Saturday. Patient would benefit from a debridement of the ulcerated site. Will be happy to see him in the wound care center upon discharge. Patient is agreeable Thank you for the consultation any questions please contact the wound care ce nter DNP note has been reviewed and discussed with Dr. Betancourt and the impression and plan of care has been directed as dictated. Past Medical History Past Medical History: Osteoarthritis (OA) Additional Past Medical History / Comment(s): sarcoidosis. pt takes eliquis but denies afib,Leprosy History of Any Multi-Drug Resistant Organisms: MRSA Year Discovered:: 05/18/23 MDRO Source:: Left sencond FInger Past Surgical History: Hernia Repair Additional Past Surgical History / Comment(s): Bilateral Hernia Repair, cataracts Past Anesthesia/Blood Transfusion Reactions: No Reported Reaction Past Psychological History: No Psychological Hx Reported Smoking Status: Former smoker Past Alcohol Use History: None Reported Past Drug Use History: None Reported - Past Family History Father Family Medical History: Congestive Heart Failure (CHF) Mother Family Medical History: Congestive Heart Failure (CHF) Medications and Allergies Home Medications Medication Instructions Recorded Confirmed Type Apixaban [Eliquis] 5 mg PO BID 08/22/21 01/27/24 History Metoprolol Succinate [Toprol XL] 25 mg PO HS 08/22/21 01/27/24 History Gabapentin 300 mg PO HS 05/16/23 01/27/24 History predniSONE 10 mg PO DAILY 05/16/23 01/27/24 History Amitriptyline HCl [Elavil] 10 mg PO DIRECTED 10/07/23 01/27/24 History Ergocalciferol (Vitamin D2) 1,250 mcg PO DIRECTED 10/07/23 01/27/24 History [Drisdol (50,000 Iu)] Folic Acid 1 mg PO SUMOTUWEFRSA 10/07/23 01/27/24 History Moxifloxacin HCl [Avelox] 400 mg PO Q30D 10/07/23 01/27/24 History Rifabutin 300 mg PO Q30D 10/07/23 01/27/24 History metHOTREXate sodium [Methotrexate] 17.5 mg PO TH 10/07/23 01/27/24 History Aspirin EC [Ecotrin Low Dose] 81 mg PO DAILY 01/16/24 01/27/24 History Levothyroxine Sodium [Synthroid] 50 mcg PO DAILY 01/16/24 01/27/24 History Minocycline HCl [Minocin] 100 mg PO Q30D 01/16/24 01/27/24 History Mupirocin 2% Oint [Bactroban 2% 1 applic TOPICAL TID #22 gm 01/16/24 01/27/24 Rx Oint] Allergies Allergy/AdvReac Type Severity Reaction Status Date / Time No Known Allergies Allergy Verified 01/16/24 11:54 Physical Exam Vitals: Vital Signs Temp Pulse Pulse Resp BP BP Pulse Ox 01/29/24 07:00 97.9 F 68 16 100/58 100 01/29/24 02:09 100.3 F H 65 15 101/52 97 01/28/24 21:03 84 01/28/24 19:03 99.2 F 84 15 117/68 97 01/28/24 17:56 99.5 F 85 16 115/65 99 01/28/24 17:04 97.6 F 66 17 106/66 96 01/28/24 16:05 74 18 117/78 97 01/28/24 15:05 68 18 101/62 96 Intake and Output 01/28/24 01/29/24 01/29/24 22:59 06:59 14:59 Intake Total 118 Balance 118 Intake: Oral 118 Other: Voiding Method Toilet # Voids 1 2 Weight 81.647 kg Results CBC & Chem 7: 01/29/24 08:02 01/29/24 08:02 Labs: Abnormal Lab Results - Last 24 Hours (Table) 01/29/24 01/29/24 Range/Units 08:02 08:02 RBC 3.43 L (4.40-5.60) X 10*6/uL Hgb 10.2 L (13.0-17.0) g/dL Hct 32.1 L (39.6-50.0) % MCHC 31.8 L (32.0-37.0) g/dL Immature Gran # 0.05 H (0.00-0.04) X 10*3/uL Sodium 136 L (137-145) mmol/L Chloride 108 H (98-107) mmol/L Glucose 108 H (74-99) mg/dL Calcium 7.6 L (8.4-10.2) mg/dL Microbiology - Last 24 Hours (Table) 01/28/24 12:00 Gram Stain - Preliminary Foot - Left 01/27/24 19:00 Blood Culture - Preliminary Blood 01/27/24 18:59 Blood Culture - Preliminary Blood Assessment and Plan (1) Leprosy neuropathy Current Visit: Yes Status: Acute Code(s): A30.9 - LEPROSY, UNSPECIFIED; G63 - POLYNEUROPATHY IN DISEASES CLASSIFIED ELSEWHERE SNOMED Code(s): 692917369 (2) Non-pressure chronic ulcer of other part of left foot with muscle involvement without evidence of necrosis Current Visit: Yes Status: Acute Code(s): L97.525 - NON-PRS CHR ULC OTH PRT L FOOT WITH MSL INVL W/O EVD OF NECR SNOMED Code(s): 73170574907691613 (3) Pugh's disease Current Visit: No Status: Acute Code(s): A30.9 - LEPROSY, UNSPECIFIED SNOMED Code(s): 68287592
[2024-01-29] MEDS: VANCOMYCIN TROUGH DUE 1 EACH MISC MISCELLANE ONE (20:43)
[2024-01-30 08:43] LABS: HCT 34.1 % (39.6-50.0); HGB 10.8 g/dL (13.0-17.0); MCH 29.3 pg (27.0-32.0); MCHC 31.7 g/dL (32.0-37.0); MCV 92.7 FL (80.0-97.0); Mean Platelet Volume 10.5 FL (9.5-12.2); NRBC Per 100 WBC 0 X 10*3/uL (0.00-0.01); Platelet Count 272 X 10*3/uL (140-440); RBC 3.68 X 10*6/uL (4.40-5.60); RDW 14.5 % (11.5-14.5); WBC 10.42 X 10*3/uL (4.50-10.00)
[2024-01-30 08:44] LABS: Basophils # (A) 0.04 X 10*3/uL (0.00-0.10); Basophils % (A) 0.4 %; Eosinophils # (A) 0.14 X 10*3/uL (0.04-0.35); Eosinophils % (A) 1.3 %; Lymphocytes # (A) 1.17 X 10*3/uL (0.90-5.00); Lymphocytes % (A) 11.2 %; Monocytes % (A) 7.7 %; Neutrophils # (A) 8.21 X 10*3/uL (1.80-7.70); Neutrophils % (A) 78.8 %
[2024-01-30] MEDS: metHOTREXate sodium 2.5 MG TAB PO SCH (09:22)
[2024-01-30 10:13] LABS: Erythrocyte Sedimentation Rate 54 mm/Hr (0-20)
[2024-01-30 10:29] LABS: BUN/Creat Ratio 12.38 Ratio (12.00-20.00); Blood Urea Nitrogen 9.9 mg/dL (9.0-27.0); Calcium 8.3 mg/dL (8.7-10.3); Carbon Dioxide 24.7 mmol/L (21.6-31.8); Chloride 106 mmol/L (96-109); Glucose 96 mg/dL (70-110); Potassium 4.3 mmol/L (3.5-5.5); Sodium 140 mmol/L (135-145)
--- NOTE | 2024-01-30 13:13 | P.PN ---
Subjective Progress Note Date: 01/29/24 Principal diagnosis: Reason for follow-up is left foot cellulitis and infected callus Patient is a 73-year-old male with a past medical history significant for osteoarthritis sarcoidosis history of MRSA infection involving his left second finger,Pt presenting to the hospital for evaluation of left foot infection, patient was noticed to have infected callus on the left foot with secondary cellulitis. On today's evaluation 01/29/2024,the patient remains to be afebrile, patient is on room air not requiring supplemental oxygen and denies any shortness of breath no chest pain or cough.Patient denies having any nausea or vomiting, no abdominal pain and no diarrhea has been reported, denies pain to the left foot or any worsening drainage. Patient white count normalized to 9.06 creatinine 0.75 cultures are currently pending Objective - Vital Signs Vital signs: Vital Signs Temp 97.7 F 01/29/24 15:00 Pulse 67 01/29/24 15:00 Resp 16 01/29/24 15:00 BP 121/62 01/29/24 15:00 Pulse Ox 99 01/29/24 15:00 FiO2 Intake & Output 01/28/24 01/29/24 01/29/24 18:59 06:59 18:59 Intake Total 118 Balance 118 Weight 81.647 kg Intake: Oral 118 Other: Voiding Method Toilet # Voids 2 - Exam GENERAL DESCRIPTION: An elderly male lying in bed in no distress RESPIRATORY SYSTEM: Unlabored breathing , decreased breath sounds at bases HEART: S1 S2 regular rate and rhythm , ABDOMEN: Soft , no tenderness EXTREMITIES: Left second toe still have swelling and redness wound on the plantar aspect with some drainage - Labs CBC & Chem 7: 01/30/24 06:15 01/30/24 06:15 Labs: Abnormal Lab Results - Last 24 Hours (Table) 01/29/24 01/29/24 Range/Units 08:02 08:02 RBC 3.43 L (4.40-5.60) X 10*6/uL Hgb 10.2 L (13.0-17.0) g/dL Hct 32.1 L (39.6-50.0) % MCHC 31.8 L (32.0-37.0) g/dL Immature Gran # 0.05 H (0.00-0.04) X 10*3/uL Sodium 136 L (137-145) mmol/L Chloride 108 H (98-107) mmol/L Glucose 108 H (74-99) mg/dL Calcium 7.6 L (8.4-10.2) mg/dL Microbiology - Last 24 Hours (Table) 01/28/24 12:00 Gram Stain - Preliminary Foot - Left 01/27/24 19:00 Blood Culture - Preliminary Blood 01/27/24 18:59 Blood Culture - Preliminary Blood Assessment and Plan (1) Cellulitis of left foot Current Visit: Yes Status: Acute Code(s): L03.116 - CELLULITIS OF LEFT LOWER LIMB SNOMED Code(s): 72030557644063086 (2) Foot ulcer, left Current Visit: Yes Status: Acute Code(s): L97.529 - NON-PRESSURE CHRONIC ULCER OTH PRT LEFT FOOT W UNSP SEVERITY SNOMED Code(s): 882338114 Plan: 1patient presented to the hospital with left foot swelling redness and drainage in this patient who did have a callus on the plantar aspect of the left foot at the base of the second metatarsal with associated increasing swelling and redness of the second metatarsal concerning for infected callus and possible osteomyelitis 2 await-vascular surgery for debridement of this infected callus and deep culture, care discussed with the Dr. Naranjo 3-patient did have normalization of the white count will continue with vancomycin pharmacy to dose target trough of 15 while watching kidney function and Vanco trough closely Question and concerns were answered Dictation was produced using [employer] dictation software. please excuse any grammatical, word or spelling errors. Time with Patient: Less than 30
--- NOTE | 2024-01-30 13:14 | P.PN ---
Subjective Progress Note Date: 01/30/24 Principal diagnosis: Reason for follow-up is left foot cellulitis and infected callus Patient is a 73-year-old male with a past medical history significant for osteoarthritis sarcoidosis history of MRSA infection involving his left second finger,Pt presenting to the hospital for evaluation of left foot infection, patient was noticed to have infected callus on the left foot with secondary cellulitis. On today's evaluation 01/30/2024, the patient continues to be afebrile, the patient is on room air and breathing comfortably, the Pt denies having any chest pain or cough, the patient denies having any abdominal pain no vomiting or any diarrhea, patient denies any pain to the left foot or any worsening drainage. Patient white count is 10.42 creatinine 0.8 cultures are growing strep and gram- negative bacilli Objective - Vital Signs Vital signs: Vital Signs Temp 98.7 F 01/30/24 07:58 Pulse 76 01/30/24 07:58 Resp 16 01/30/24 07:58 BP 117/63 01/30/24 07:58 Pulse Ox 97 01/30/24 07:58 FiO2 Intake & Output 01/29/24 01/30/24 01/30/24 18:59 06:59 18:59 Intake Total 236 118 Balance 236 118 Intake: Oral 236 118 Other: Voiding Method Toilet # Voids 3 1 - Exam GENERAL DESCRIPTION: An elderly male lying in bed in no distress RESPIRATORY SYSTEM: Unlabored breathing , decreased breath sounds at bases HEART: S1 S2 regular rate and rhythm , ABDOMEN: Soft , no tenderness EXTREMITIES: Left second toe still have swelling and redness wound on the plantar aspect with some drainage - Labs CBC & Chem 7: 01/30/24 06:15 01/30/24 06:15 Labs: Abnormal Lab Results - Last 24 Hours (Table) 01/30/24 01/30/24 Range/Units 06:15 06:15 WBC 10.42 H (4.50-10.00) X 10*3/uL RBC 3.68 L (4.40-5.60) X 10*6/uL Hgb 10.8 L (13.0-17.0) g/dL Hct 34.1 L (39.6-50.0) % MCHC 31.7 L (32.0-37.0) g/dL Immature Gran # 0.06 H (0.00-0.04) X 10*3/uL Neutrophils # 8.21 H (1.80-7.70) X 10*3/uL ESR 54 H (0-20) mm/Hr Calcium 8.3 L (8.7-10.3) mg/dL C-Reactive Protein 7.50 H (0.00-0.80) mg/dL Microbiology - Last 24 Hours (Table) 01/29/24 09:30 Gram Stain - Preliminary Foot - Left Wound Culture - Preliminary Gram Neg Bacilli Strep agalactiae - (group b) 01/28/24 12:00 Gram Stain - Preliminary Foot - Left Wound Culture - Preliminary Gram Neg Bacilli Strep agalactiae - (group b) 01/27/24 19:00 Blood Culture - Preliminary Blood 01/27/24 18:59 Blood Culture - Preliminary Blood Assessment and Plan (1) Cellulitis of left foot Current Visit: Yes Status: Acute Code(s): L03.116 - CELLULITIS OF LEFT LOWER LIMB SNOMED Code(s): 18337160392996552 (2) Foot ulcer, left Current Visit: Yes Status: Acute Code(s): L97.529 - NON-PRESSURE CHRONIC ULCER OTH PRT LEFT FOOT W UNSP SEVERITY SNOMED Code(s): 406500511 Plan: 1patient presented to the hospital with left foot swelling redness and drainage in this patient who did have a callus on the plantar aspect of the left foot at the base of the second metatarsal with associated increasing swelling and redness of the second metatarsal concerning for infected callus and possible osteomyelitis 2 patient is currently waiting for vascular surgery for debridement of this infected callus and deep culture, hopefully this afternoon 3-patient cultures are now growing gram-negative bacilli and strep I will discontinue vancomycin and start the patient on cefepime while waiting for sensitivity to finalize Question and concerns were answered Dictation was produced using [employer] dictation software. please excuse any grammatical, word or spelling errors. Time with Patient: Less than 30
--- NOTE | 2024-01-30 13:21 | P.OP ---
Date of Procedure: 01/30/24 Preoperative Diagnosis: Left foot callus. Postoperative Diagnosis: Same plus left foot abscess. Procedure(s) Performed: 1: Incision and drainage left foot abscess. 2: Shaving of left foot plantar callus. Implants: None. Anesthesia: local Surgeon: Jose Peace Estimated Blood Loss (ml): 5 Pathology: other (Wound culture) Condition: stable Disposition: no change Indications for Procedure: Patient is a 73-year-old male who was admitted for treatment of the left foot wound. Patient has a callus on plantar surface of the left foot with associated callus. We are asked to shave his callus. Description of Procedure: 1 1: Patient was placed patient was placed supine in his bed. The left foot dressings were removed revealing a piece of packing within the wound on the plantar surface of the left foot. This was removed and upon doing so purulent drainage immediately was expressed. The wound was then cultured. The wound was then prepped with Betadine and 1% Xylocaine was utilized for local anesthesia. The wound was probed and found to track posteriorly along the plantar surface for approximately 3 cm and also tract anteriorly toward the dorsal surface of the foot. The wound was then packed with iodoform strip gauze and dressed after the callus was shaved with a surgical scalpel. Patient tolerated the procedure well.
[2024-01-30] MEDS: LIDOCAINE 1% INJ 10MG/ML (20 ML MDV) SQ ONE (13:25)
[2024-01-30] MEDS: CEFEPIME 2 GM in SODIUM CHLORIDE 0.9% 100 ML IVPB SCH (13:31)
[2024-01-30 14:11] VITALS: BMI 23.1
--- NOTE | 2024-01-30 17:55 | P.PN ---
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 Denies trauma. Denies denies extremity pain. Denies chest pain, palpitations or shortness of breath. Reports he follows with a corporate strategy analyst in [place]. Tmax 100.1, WBC 14.7 decreased 11.3, hemoglobin 13.5, platelets 286, INR 1.2, bicarb 21 BUN 19, creatinine 0.63. X-ray of left foot reported no acute fracture, postsurgical changes to the metal tarsalphalangeal joint of the first digit with partial osseous fusion suggested, no evidence for osseous erosion to suggest osteomyelitis. Blood pressures on admission soft, improved. Maintaining O2 sats of 100% on room air. 01/29/2024 evaluated by infectious disease, vascular surgery and wound care team/clinic, recommendations noted. Bedside debridement currently being discussed as per vascular surgery. Tmax 100.3, leukocytosis on admission resolved, WBC 9.06; continues on IV antibiotics of vancomycin. Renal function stable. 01/30/2024 maintained on IV antibiotics as per infectious disease. Afebrile, WBC 10.42. Preliminary wound cultures growing strep, gram-negative bacilli .hemoglobin 10.8, platelets 272, renal function stable. Reports no pain. Denies chest pain, palpitations or shortness of breath. Bedside debridement with vascular surgery scheduled for today. Objective - Vital Signs Vital signs: Vital Signs Temp 98.7 F 01/30/24 07:58 Pulse 76 01/30/24 07:58 Resp 16 01/30/24 07:58 BP 117/63 01/30/24 07:58 Pulse Ox 97 01/30/24 07:58 FiO2 Intake & Output 01/29/24 01/30/24 01/30/24 18:59 06:59 18:59 Intake Total 236 118 Balance 236 118 Intake: Oral 236 118 Other: Voiding Method Toilet # Voids 3 1 - Exam PHYSICAL EXAM: VITAL SIGNS: [As above] GENERAL: Alert and oriented x 3, sitting up in bed,no acute distress HEENT: Normocephalic, Conjunctivae normal. NECK: Supple, No JVD. CARDIOVASCULAR: S1, S2 regular. No murmur RESPIRATION: Unlabored, equal air entry, CTA with bilateral bases diminished. ABDOMEN: Soft, nondistended, nontender . No guarding. No rigidity. +BS. Upper Extremities: Clawing /contractures of bilateral hands/digits, left foot dressing clean dry and intact. positive DP pulse. LEGS: No edema. no swelling. NERVOUS SYSTEM: Cranial N 2-12 grossly normal. No focal deficits. - Labs CBC & Chem 7: 01/30/24 06:15 01/30/24 06:15 Labs: Abnormal Lab Results - Last 24 Hours (Table) 01/29/24 01/30/24 Range/Units 08:02 06:15 WBC 10.42 H (4.50-10.00) X 10*3/uL RBC 3.43 L 3.68 L (4.40-5.60) X 10*6/uL Hgb 10.2 L 10.8 L (13.0-17.0) g/dL Hct 32.1 L 34.1 L (39.6-50.0) % MCHC 31.8 L 31.7 L (32.0-37.0) g/dL Immature Gran # 0.05 H 0.06 H (0.00-0.04) X 10*3/uL Neutrophils # 8.21 H (1.80-7.70) X 10*3/uL ESR 54 H (0-20) mm/Hr Microbiology - Last 24 Hours (Table) 01/29/24 09:30 Gram Stain - Preliminary Foot - Left 01/27/24 19:00 Blood Culture - Preliminary Blood 01/27/24 18:59 Blood Culture - Preliminary Blood 01/28/24 12:00 Gram Stain - Preliminary Foot - Left Assessment and Plan Assessment: Sepsis secondary to left plantar ulcer, wound cultures growing gram-negative bacilli, strep 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 Plan: Continue on current medication regimen ,monitoring and symptomatic treatment. Radha remains on hold for upcoming, bedside debridement today. Wound cultures finalizing, currently growing gram-negative bacilli, strep- antibiotics as per ID. The impression and plan of care has been dictated as directed. : I performed a history and examination of this patient, discussed the same with the dictator. I agree with the dictator's note ,documented as a scribe. Any additional findings or plans will be noted.
[2024-01-31 06:29] LABS: African American GFR (CKD) >90 (>60 ml/min/1.73 sqM); Anion Gap 3 mmol/L; Blood Urea Nitrogen 12 mg/dL (9-20); Calcium 8.3 mg/dL (8.4-10.2); Carbon Dioxide 26 mmol/L (22-30); Chloride 109 mmol/L (98-107); Glucose 102 mg/dL (74-99); Non-African American GFR(CKD) 87 (>60 ml/min/1.73 sqM); Potassium 4.3 mmol/L (3.5-5.1); Sodium 138 mmol/L (137-145)
[2024-01-31 08:26] LABS: Basophils # (A) 0.05 X 10*3/uL (0.00-0.10); Basophils % (A) 0.4 %; Eosinophils # (A) 0.14 X 10*3/uL (0.04-0.35); Eosinophils % (A) 1.1 %; HCT 35.6 % (39.6-50.0); HGB 11.3 g/dL (13.0-17.0); Lymphocytes # (A) 1.56 X 10*3/uL (0.90-5.00); Lymphocytes % (A) 12.8 %; MCH 29.7 pg (27.0-32.0); MCHC 31.7 g/dL (32.0-37.0); MCV 93.7 FL (80.0-97.0); Mean Platelet Volume 9.8 FL (9.5-12.2); Monocytes # (A) 0.84 X 10*3/uL (0.20-1.00); Monocytes % (A) 6.9 %; NRBC Per 100 WBC 0 X 10*3/uL (0.00-0.01); Neutrophils # (A) 9.53 X 10*3/uL (1.80-7.70); Neutrophils % (A) 78.2 %; Platelet Count 328 X 10*3/uL (140-440); RDW 14.5 % (11.5-14.5); WBC 12.19 X 10*3/uL (4.50-10.00)
--- NOTE | 2024-01-31 11:26 | P.PN ---
Subjective Progress Note Date: 01/31/24 Principal diagnosis: Infected left foot ulcer Patient is seen and examined today as a follow-up. Patient had a left foot callus that was infected with a abscess. He underwent a bedside incision and drainage of the left foot abscess and shaving of the left foot plantar callus. Patient has been afebrile. He has no pain in his foot, patient actually has chronic neuropathy. Final wound culture came back as Klebsiella oxytoca strep agalactiae. Deep tissue culture from I&D is currently pending. Patient remains on IV Maxipime with infectious disease following. Objective - Vital Signs Vital signs: Vital Signs Temp 98.7 F 01/31/24 07:49 Pulse 73 01/31/24 07:49 Resp 16 01/31/24 07:49 BP 108/55 01/31/24 07:49 Pulse Ox 98 01/31/24 07:49 FiO2 Intake & Output 01/30/24 01/31/24 01/31/24 18:59 06:59 18:59 Intake Total 118 Balance 118 Weight 81.647 kg Intake: Oral 118 Other: Voiding Method Toilet # Voids 4 2 - Exam General appearance: The patient is alert, oriented, appears in no acute distress . HET: Head is normocephalic and atraumatic. Pupils are equal and reactive. Neck: Supple. Abdomen: Soft,, nondistended. Extremities: Left lower extremity swelling, erythema. Left foot callus plantar aspect status post I&D with incision with serosanguineous and purulent drainage. Wound repacked with iodoform. Neurological: No focal deficits. Neuropathy. - Labs CBC & Chem 7: 01/31/24 06:00 01/31/24 06:00 Labs: Abnormal Lab Results - Last 24 Hours (Table) 01/31/24 01/31/24 Range/Units 06:00 06:00 WBC 12.19 H (4.50-10.00) X 10*3/uL RBC 3.80 L (4.40-5.60) X 10*6/uL Hgb 11.3 L (13.0-17.0) g/dL Hct 35.6 L (39.6-50.0) % MCHC 31.7 L (32.0-37.0) g/dL Immature Gran # 0.07 H (0.00-0.04) X 10*3/uL Neutrophils # 9.53 H (1.80-7.70) X 10*3/uL Chloride 109 H (98-107) mmol/L Glucose 102 H (74-99) mg/dL Calcium 8.3 L (8.4-10.2) mg/dL Microbiology - Last 24 Hours (Table) 01/28/24 12:00 Gram Stain - Final Foot - Left Wound Culture - Final Klebsiella oxytoca Strep agalactiae - (group b) 01/29/24 09:30 Gram Stain - Final Foot - Left Wound Culture - Final Klebsiella oxytoca Strep agalactiae - (group b) 01/27/24 19:00 Blood Culture - Preliminary Blood 01/27/24 18:59 Blood Culture - Preliminary Blood 01/30/24 12:30 Gram Stain - Preliminary Foot - Left Assessment and Plan Assessment: 1. Infected Left foot wound/callus status post incision and drainage and callus shaving 2. Left lower extremity cellulitis 3. Pugh's disease 4. 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 Continue with antibiotic recommendations from infectious disease 2. May resume anticoagulation 3. Patient is status post incision and drainage 4. Daily dressing change to left plantar wound, pack with iodoform, 4 x 4 and Kerlix daily 5. Patient to follow wound care instructions as recommended by wound clinic for discharge with absorptive silver roping 6. Recommend outpatient wound care Thank you for this consultation, we will sign off at this time. The impression and plan of care has been dictated as directed. Dr. Aguila I performed a history and examination of this patient, discussed the same with the dictator. I agree with the dictator's note ,documented as a scribe. Any additional findings or plans will be noted.
--- NOTE | 2024-01-31 16:43 | P.PN ---
Subjective Progress Note Date: 01/31/24 Principal diagnosis: Reason for follow-up is left foot cellulitis and infected callus Patient is a 73-year-old male with a past medical history significant for osteoarthritis sarcoidosis history of MRSA infection involving his left second finger,Pt presenting to the hospital for evaluation of left foot infection, patient was noticed to have infected callus on the left foot with secondary cellulitis. On today's evaluation 01/31/2024, Patient is afebrile patient is currently on room air and denies having any shortness of breath, the patient denies any chest pain or cough, the patient denies any nausea vomiting did not have any abdominal pain and no diarrhea, denies pain to the left foot wound area. Patient white count is 12.19, creatinine 0.84 culture also growing Bacteroides fragilis Objective - Vital Signs Vital signs: Vital Signs Temp 98.7 F 01/31/24 07:49 Pulse 73 01/31/24 07:49 Resp 16 01/31/24 07:49 BP 108/55 01/31/24 07:49 Pulse Ox 98 01/31/24 07:49 FiO2 Intake & Output 01/30/24 01/31/24 01/31/24 18:59 06:59 18:59 Intake Total 118 Balance 118 Weight 81.647 kg Intake: Oral 118 Other: Voiding Method Toilet # Voids 4 2 - Exam GENERAL DESCRIPTION: An elderly male lying in bed in no distress RESPIRATORY SYSTEM: Unlabored breathing , decreased breath sounds at bases HEART: S1 S2 regular rate and rhythm , ABDOMEN: Soft , no tenderness EXTREMITIES: Left foot is currently dressed - Labs CBC & Chem 7: 01/31/24 06:00 01/31/24 06:00 Labs: Abnormal Lab Results - Last 24 Hours (Table) 01/31/24 01/31/24 Range/Units 06:00 06:00 WBC 12.19 H (4.50-10.00) X 10*3/uL RBC 3.80 L (4.40-5.60) X 10*6/uL Hgb 11.3 L (13.0-17.0) g/dL Hct 35.6 L (39.6-50.0) % MCHC 31.7 L (32.0-37.0) g/dL Immature Gran # 0.07 H (0.00-0.04) X 10*3/uL Neutrophils # 9.53 H (1.80-7.70) X 10*3/uL Chloride 109 H (98-107) mmol/L Glucose 102 H (74-99) mg/dL Calcium 8.3 L (8.4-10.2) mg/dL Microbiology - Last 24 Hours (Table) 01/28/24 12:00 Gram Stain - Final Foot - Left Wound Culture - Final Klebsiella oxytoca Strep agalactiae - (group b) 01/29/24 09:30 Gram Stain - Final Foot - Left Wound Culture - Final Klebsiella oxytoca Strep agalactiae - (group b) 01/27/24 19:00 Blood Culture - Preliminary Blood 01/27/24 18:59 Blood Culture - Preliminary Blood 01/30/24 12:30 Gram Stain - Preliminary Foot - Left Assessment and Plan (1) Cellulitis of left foot Current Visit: Yes Status: Acute Code(s): L03.116 - CELLULITIS OF LEFT LOWER LIMB SNOMED Code(s): 96397630685378448 (2) Foot ulcer, left Current Visit: Yes Status: Acute Code(s): L97.529 - NON-PRESSURE CHRONIC ULCER OTH PRT LEFT FOOT W UNSP SEVERITY SNOMED Code(s): 824394866 Plan: 1patient presented to the hospital with left foot swelling redness and drainage in this patient who did have a callus on the plantar aspect of the left foot at the base of the second metatarsal with associated increasing swelling and redness of the second metatarsal concerning for infected callus and possible osteomyelitis 2 patient is s/p bedside drainage of the left foot abscess and deep culture 3-patient cultures are Growing Klebsiella Streptococcus and bacteroids fragilis, patient is covered with cefepime will add Flagyl-, the patient will need midline for outpatient antibiotic therapy Dictation was produced using [employer] dictation software. please excuse any grammatical, word or spelling errors. Time with Patient: Less than 30
--- NOTE | 2024-01-31 18:19 | P.PN ---
Subjective Progress Note Date: 01/31/24 Patient is evaluated today on the medical floor he is postoperative day #1 surgical debridement of left foot abscess as well as scraping of callous. Patient continues on IV cefepime pending deep tissues cultures from the I and D. Blood work today reveals white blood cell count 12.19, hgb 11.3, renal function WNL. ESR and CRP elevated. Review of Systems Constitutional: Denied any fatigue denied any fever. Cardio vascular: denied any chest pain, palpitations Gastrointestinal: denied any nausea, vomiting, diarrhea Pulmonary: Denied any shortness of breath cough Neurologic denied any new focal deficits All inpatient medications were reviewed and appropriate changes in these medications as dictated in the interval history and assessment and plan. PHYSICAL EXAMINATION: GENERAL: The patient is alert and oriented x3, not in any acute distress. Well developed, well nourished. HEENT: Pupils are round and equally reacting to light. EOMI. No scleral icterus. No conjunctival pallor. Normocephalic, atraumatic. No pharyngeal erythema. No thyromegaly. CARDIOVASCULAR: S1 and S2 present. No murmurs, rubs, or gallops. PULMONARY: Chest is clear to auscultation, no wheezing or crackles. ABDOMEN: Soft, nontender, nondistended, normoactive bowel sounds. No palpable organomegaly. MUSCULOSKELETAL: No joint swelling or deformity. EXTREMITIES: No cyanosis, clubbing, or pedal edema. NEUROLOGICAL: Gross neurological examination did not reveal any focal deficits. SKIN: No rashes. Assessment and Plan -Sepsis secondary to left plantar ulcer, wound cultures growing gram-negative bacilli, strep postoperative surgical debridment pending deep tissue cultures remains on IV cefepime/flagyl ID following. 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 The impression and plan of care has been dictated by Zonia Yo, Nurse Practitioner as directed. Dr. Jake MD I have performed a history and physical examination and medical decision making of this patient, discussed the same with the dictator, and agree with the dictators assessment and plan as written, documented as a scribe. Based on total visit time, I have performed more than 50% of this visit. Objective - Vital Signs Vital signs: Vital Signs Temp 98.7 F 01/31/24 07:49 Pulse 73 01/31/24 07:49 Resp 16 01/31/24 07:49 BP 108/55 01/31/24 07:49 Pulse Ox 98 01/31/24 07:49 FiO2 Intake & Output 01/30/24 01/31/24 01/31/24 18:59 06:59 18:59 Intake Total 118 Balance 118 Weight 81.647 kg Intake: Oral 118 Other: Voiding Method Toilet # Voids 4 2 - Labs CBC & Chem 7: 01/31/24 06:00 01/31/24 06:00 Labs: Abnormal Lab Results - Last 24 Hours (Table) 01/31/24 01/31/24 Range/Units 06:00 06:00 WBC 12.19 H (4.50-10.00) X 10*3/uL RBC 3.80 L (4.40-5.60) X 10*6/uL Hgb 11.3 L (13.0-17.0) g/dL Hct 35.6 L (39.6-50.0) % MCHC 31.7 L (32.0-37.0) g/dL Immature Gran # 0.07 H (0.00-0.04) X 10*3/uL Neutrophils # 9.53 H (1.80-7.70) X 10*3/uL Chloride 109 H (98-107) mmol/L Glucose 102 H (74-99) mg/dL Calcium 8.3 L (8.4-10.2) mg/dL Microbiology - Last 24 Hours (Table) 01/29/24 09:30 Anaerobic Culture - Preliminary Foot - Left Bacteroides fragilis 01/28/24 12:00 Gram Stain - Final Foot - Left Wound Culture - Final Klebsiella oxytoca Strep agalactiae - (group b) 01/29/24 09:30 Gram Stain - Final Foot - Left Wound Culture - Final Klebsiella oxytoca Strep agalactiae - (group b) 01/27/24 19:00 Blood Culture - Preliminary Blood 01/27/24 18:59 Blood Culture - Preliminary Blood 01/30/24 12:30 Gram Stain - Preliminary Foot - Left Assessment and Plan Time with Patient: Less than 30
[2024-01-31] MEDS: metroNIDAZOLE 500 MG TAB PO SCH (19:27)
[2024-01-31] MEDS: HEPARIN SODIUM,PORCINE 5,000 UNIT/ML 1 ML VIAL SQ SCH (20:52)
[2024-02-01 10:35] LABS: Basophils # (A) 0.05 X 10*3/uL (0.00-0.10); Basophils % (A) 0.6 %; Eosinophils # (A) 0.22 X 10*3/uL (0.04-0.35); Eosinophils % (A) 2.5 %; HCT 33.5 % (39.6-50.0); HGB 10.7 g/dL (13.0-17.0); Lymphocytes # (A) 1.32 X 10*3/uL (0.90-5.00); Lymphocytes % (A) 14.9 %; MCH 29.7 pg (27.0-32.0); MCHC 31.9 g/dL (32.0-37.0); MCV 93.1 FL (80.0-97.0); Mean Platelet Volume 10.6 FL (9.5-12.2); Monocytes # (A) 0.32 X 10*3/uL (0.20-1.00); Monocytes % (A) 3.6 %; NRBC Per 100 WBC 0 X 10*3/uL (0.00-0.01); Neutrophils # (A) 6.91 X 10*3/uL (1.80-7.70); Neutrophils % (A) 77.7 %; Platelet Count 332 X 10*3/uL (140-440); RBC Morphology Normal (Normal); RDW 14.5 % (11.5-14.5); WBC 8.88 X 10*3/uL (4.50-10.00)
[2024-02-01 11:05] LABS: BUN/Creat Ratio 21.86 Ratio (12.00-20.00); Blood Urea Nitrogen 15.3 mg/dL (9.0-27.0); Calcium 8.7 mg/dL (8.7-10.3); Carbon Dioxide 23.6 mmol/L (21.6-31.8); Chloride 106 mmol/L (96-109); Glucose 100 mg/dL (70-110); Potassium 4.3 mmol/L (3.5-5.5); Sodium 139 mmol/L (135-145)
--- NOTE | 2024-02-01 13:38 | P.PN ---
Subjective Progress Note Date: 02/01/24 Patient is evaluated today on the medical floor he is postoperative day #1 surgical debridement of left foot abscess as well as scraping of callous. Patient continues on IV cefepime pending deep tissues cultures from the I and D. Blood work today reveals white blood cell count 12.19, hgb 11.3, renal function WNL. ESR and CRP elevated. 02/01/2024 Patient is evaluated in follow-up he is postoperative day #2 surgical debridement of a left foot abscess. Cultures are currently showing gram- negative bacilli patient does remain on IV cefepime at this time. He is having no acute complaints today. His white blood cell count has normalized to 8.88. Hemoglobin stable at 10.7. Electrolytes are within normal limits and his renal function is within normal limits. Review of Systems Constitutional: Denied any fatigue denied any fever. Cardio vascular: denied any chest pain, palpitations Gastrointestinal: denied any nausea, vomiting, diarrhea Pulmonary: Denied any shortness of breath cough Neurologic denied any new focal deficits All inpatient medications were reviewed and appropriate changes in these medications as dictated in the interval history and assessment and plan. PHYSICAL EXAMINATION: GENERAL: The patient is alert and oriented x3, not in any acute distress. Well developed, well nourished. HEENT: Pupils are round and equally reacting to light. EOMI. No scleral icterus. No conjunctival pallor. Normocephalic, atraumatic. No pharyngeal erythema. No thyromegaly. CARDIOVASCULAR: S1 and S2 present. No murmurs, rubs, or gallops. PULMONARY: Chest is clear to auscultation, no wheezing or crackles. ABDOMEN: Soft, nontender, nondistended, normoactive bowel sounds. No palpable organomegaly. MUSCULOSKELETAL: No joint swelling or deformity. EXTREMITIES: No cyanosis, clubbing, or pedal edema. NEUROLOGICAL: Gross neurological examination did not reveal any focal deficits. SKIN: No rashes. Assessment and Plan -Sepsis secondary to left plantar ulcer, wound cultures growing gram-negative bacilli, strep postoperative surgical debridment pending deep tissue cultures remains on IV cefepime/flagyl ID following. 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 The impression and plan of care has been dictated by Zonia Yo, Nurse Practitioner as directed. Dr. Jake MD I have performed a history and physical examination and medical decision making of this patient, discussed the same with the dictator, and agree with the dictators assessment and plan as written, documented as a scribe. Based on total visit time, I have performed more than 50% of this visit. Objective - Vital Signs Vital signs: Vital Signs Temp 97.8 F 02/01/24 08:00 Pulse 94 02/01/24 08:00 Resp 16 02/01/24 08:00 BP 97/64 02/01/24 08:00 Pulse Ox 97 02/01/24 08:00 FiO2 Intake & Output 01/31/24 02/01/24 02/01/24 18:59 06:59 18:59 Intake Total 180 Balance 180 Intake: Oral 180 Other: Voiding Method Toilet # Voids 3 2 - Labs CBC & Chem 7: 02/01/24 05:45 02/01/24 05:45 Labs: Abnormal Lab Results - Last 24 Hours (Table) 02/01/24 02/01/24 Range/Units 05:45 05:45 RBC 3.60 L (4.40-5.60) X 10*6/uL Hgb 10.7 L (13.0-17.0) g/dL Hct 33.5 L (39.6-50.0) % MCHC 31.9 L (32.0-37.0) g/dL Immature Gran # 0.06 H (0.00-0.04) X 10*3/uL BUN/Creatinine Ratio 21.86 H (12.00-20.00) Ratio Microbiology - Last 24 Hours (Table) 01/30/24 12:30 Anaerobic Culture - Preliminary Foot - Left 01/30/24 12:30 Gram Stain - Preliminary Foot - Left Wound Culture - Preliminary Gram Neg Bacilli 01/29/24 09:30 Anaerobic Culture - Preliminary Foot - Left Bacteroides fragilis Assessment and Plan Time with Patient: Less than 30
--- NOTE | 2024-02-02 14:38 | P.PN ---
Subjective Progress Note Date: 02/02/24 Patient is evaluated today on the medical floor he is postoperative day #1 surgical debridement of left foot abscess as well as scraping of callous. Patient continues on IV cefepime pending deep tissues cultures from the I and D. Blood work today reveals white blood cell count 12.19, hgb 11.3, renal function WNL. ESR and CRP elevated. 02/01/2024 Patient is evaluated in follow-up he is postoperative day #2 surgical debridement of a left foot abscess. Cultures are currently showing gram- negative bacilli patient does remain on IV cefepime at this time. He is having no acute complaints today. His white blood cell count has normalized to 8.88. Hemoglobin stable at 10.7. Electrolytes are within normal limits and his renal function is within normal limits. 02/02/2024 Patient is evaluated today on the medical floor. Postoperative day #3 I and D of left foot abscess. Cultures showing klebsiella oxytoca and today are now positive for MRSA. He continues on IV cefepime with ID following the cultures closely. Midline placed for discharge antibiotics. Review of Systems Constitutional: Denied any fatigue denied any fever. Cardio vascular: denied any chest pain, palpitations Gastrointestinal: denied any nausea, vomiting, diarrhea Pulmonary: Denied any shortness of breath cough Neurologic denied any new focal deficits All inpatient medications were reviewed and appropriate changes in these medications as dictated in the interval history and assessment and plan. PHYSICAL EXAMINATION: GENERAL: The patient is alert and oriented x3, not in any acute distress. Well developed, well nourished. HEENT: Pupils are round and equally reacting to light. EOMI. No scleral icterus. No conjunctival pallor. Normocephalic, atraumatic. No pharyngeal erythema. No thyromegaly. CARDIOVASCULAR: S1 and S2 present. No murmurs, rubs, or gallops. PULMONARY: Chest is clear to auscultation, no wheezing or crackles. ABDOMEN: Soft, nontender, nondistended, normoactive bowel sounds. No palpable organomegaly. MUSCULOSKELETAL: No joint swelling or deformity. EXTREMITIES: No cyanosis, clubbing, or pedal edema. NEUROLOGICAL: Gross neurological examination did not reveal any focal deficits. SKIN: No rashes. Assessment and Plan -Sepsis secondary to left plantar ulcer, wound cultures growing MRSA and klebsilla, strep postoperative I an D cultures are final, pending ID recommendations for discharge antibiotics. 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 Final recommendations per ID. Social work to follow up tomorrow. The impression and plan of care has been dictated by Zonia Yo, Nurse Practitioner as directed. Dr. Jake MD I have performed a history and physical examination and medical decision making of this patient, discussed the same with the dictator, and agree with the dictators assessment and plan as written, documented as a scribe. Based on total visit time, I have performed more than 50% of this visit. Objective - Vital Signs Vital signs: Vital Signs Temp 97.5 F L 02/02/24 07:25 Pulse 64 02/02/24 07:25 Resp 16 02/02/24 01:04 BP 105/52 02/02/24 07:25 Pulse Ox 99 02/02/24 07:25 FiO2 Intake & Output 02/01/24 02/02/24 02/02/24 18:59 06:59 18:59 Intake Total 478 340 Balance 478 340 Intake: Oral 478 340 Other: # Voids 3 2 - Labs CBC & Chem 7: 02/01/24 05:45 02/01/24 05:45 Labs: Microbiology - Last 24 Hours (Table) 01/30/24 12:30 Gram Stain - Preliminary Foot - Left Wound Culture - Preliminary Klebsiella oxytoca Presumptive MRSA 01/29/24 09:30 Anaerobic Culture - Final Foot - Left Bacteroides fragilis 01/27/24 19:00 Blood Culture - Final Blood 01/27/24 18:59 Blood Culture - Final Blood 01/30/24 12:30 Anaerobic Culture - Preliminary Foot - Left Assessment and Plan Time with Patient: Less than 30
[2024-02-02] MEDS ORDERED: VANCOMYCIN IV PER PHARMACY 1 EACH MISC MISCELLANE PRN (17:30)
--- NOTE | 2024-02-02 17:30 | P.PN ---
Subjective Progress Note Date: 02/02/24 Principal diagnosis: Reason for follow-up is left foot cellulitis and infected callus Patient is a 73-year-old male with a past medical history significant for osteoarthritis sarcoidosis history of MRSA infection involving his left second finger,Pt presenting to the hospital for evaluation of left foot infection, patient was noticed to have infected callus on the left foot with secondary cellulitis. On today's evaluation 02/02/2024,the patient denies any fever or any chills, patient is breathing comfortably on room air, the patient denies chest pain shortness of breath and no significant cough, patient denies abdominal pain, no nausea vomiting or diarrhea. Patient is feeling better denies pain to the left foot wound No lab draw today, left foot culture now with Klebsiella and present MRSA Objective - Vital Signs Vital signs: Vital Signs Temp 97.5 F L 02/02/24 14:40 Pulse 70 02/02/24 14:40 Resp 16 02/02/24 01:04 BP 101/64 02/02/24 14:40 Pulse Ox 99 02/02/24 14:40 FiO2 Intake & Output 02/01/24 02/02/24 02/02/24 18:59 06:59 18:59 Intake Total 478 458 Balance 478 458 Intake: Oral 478 458 Other: # Voids 3 2 - Exam GENERAL DESCRIPTION: An elderly male lying in bed in no distress RESPIRATORY SYSTEM: Unlabored breathing , decreased breath sounds at bases HEART: S1 S2 regular rate and rhythm , ABDOMEN: Soft , no tenderness EXTREMITIES: Left foot is currently dressed - Labs CBC & Chem 7: 02/01/24 05:45 02/01/24 05:45 Labs: Microbiology - Last 24 Hours (Table) 01/30/24 12:30 Gram Stain - Preliminary Foot - Left Wound Culture - Preliminary Klebsiella oxytoca Presumptive MRSA 01/29/24 09:30 Anaerobic Culture - Final Foot - Left Bacteroides fragilis 01/27/24 19:00 Blood Culture - Final Blood 01/27/24 18:59 Blood Culture - Final Blood Assessment and Plan (1) Cellulitis of left foot Current Visit: Yes Status: Acute Code(s): L03.116 - CELLULITIS OF LEFT LOWER LIMB SNOMED Code(s): 88592479500888157 (2) Foot ulcer, left Current Visit: Yes Status: Acute Code(s): L97.529 - NON-PRESSURE CHRONIC ULCER OTH PRT LEFT FOOT W UNSP SEVERITY SNOMED Code(s): 327376612 Plan: 1patient presented to the hospital with left foot swelling redness and drainage in this patient who did have a callus on the plantar aspect of the left foot at the base of the second metatarsal with associated increasing swelling and redness of the second metatarsal concerning for infected callus and possible osteomyelitis 2 patient is s/p bedside drainage of the left foot abscess and deep culture which are currently growing Klebsiella and present MRSA 3-patient is covered with cefepime and Flagyl, we will add vancomycin to cover for the MRSA and a PICC line for outpatient IV antibiotic therapy Dictation was produced using [employer] dictation software. please excuse any grammatical, word or spelling errors. Time with Patient: Less than 30
--- NOTE | 2024-02-02 17:30 | P.PN ---
Subjective Progress Note Date: 02/01/24 Principal diagnosis: Reason for follow-up is left foot cellulitis and infected callus Patient is a 73-year-old male with a past medical history significant for osteoarthritis sarcoidosis history of MRSA infection involving his left second finger,Pt presenting to the hospital for evaluation of left foot infection, patient was noticed to have infected callus on the left foot with secondary cellulitis. On today's evaluation 02/01/2024, patient has been afebrile, patient is breathing comfortably and is currently on room air, patient denies having any significant cough no chest pain shortness of breath, patient denies nausea vomiting or diarrhea and no abdominal pain patient denies pain to the left foot wound area Patient white count normalized to 8.88, creatinine 0.7 Objective - Vital Signs Vital signs: Vital Signs Temp 98.4 F 02/01/24 14:00 Pulse 67 02/01/24 14:00 Resp 16 02/01/24 14:00 BP 106/62 02/01/24 14:00 Pulse Ox 100 02/01/24 14:00 FiO2 Intake & Output 01/31/24 02/01/24 02/01/24 18:59 06:59 18:59 Intake Total 298 Balance 298 Intake: Oral 298 Other: Voiding Method Toilet # Voids 3 2 3 - Exam GENERAL DESCRIPTION: An elderly male lying in bed in no distress RESPIRATORY SYSTEM: Unlabored breathing , decreased breath sounds at bases HEART: S1 S2 regular rate and rhythm , ABDOMEN: Soft , no tenderness EXTREMITIES: Left foot is currently dressed - Labs CBC & Chem 7: 02/01/24 05:45 02/01/24 05:45 Labs: Abnormal Lab Results - Last 24 Hours (Table) 02/01/24 02/01/24 Range/Units 05:45 05:45 RBC 3.60 L (4.40-5.60) X 10*6/uL Hgb 10.7 L (13.0-17.0) g/dL Hct 33.5 L (39.6-50.0) % MCHC 31.9 L (32.0-37.0) g/dL Immature Gran # 0.06 H (0.00-0.04) X 10*3/uL BUN/Creatinine Ratio 21.86 H (12.00-20.00) Ratio Microbiology - Last 24 Hours (Table) 01/30/24 12:30 Anaerobic Culture - Preliminary Foot - Left 01/30/24 12:30 Gram Stain - Preliminary Foot - Left Wound Culture - Preliminary Gram Neg Bacilli 01/29/24 09:30 Anaerobic Culture - Preliminary Foot - Left Bacteroides fragilis Assessment and Plan (1) Cellulitis of left foot Current Visit: Yes Status: Acute Code(s): L03.116 - CELLULITIS OF LEFT LOWER LIMB SNOMED Code(s): 39612946886065604 (2) Foot ulcer, left Current Visit: Yes Status: Acute Code(s): L97.529 - NON-PRESSURE CHRONIC ULCER OTH PRT LEFT FOOT W UNSP SEVERITY SNOMED Code(s): 940364646 Plan: 1patient presented to the hospital with left foot swelling redness and drainage in this patient who did have a callus on the plantar aspect of the left foot at the base of the second metatarsal with associated increasing swelling and redness of the second metatarsal concerning for infected callus and possible osteomyelitis 2 patient is s/p bedside drainage of the left foot abscess and deep culture which are currently pending 3-patient cultures are growing Klebsiella Streptococcus and bacteroids fragilis, patient is covered with cefepime and Flagyl, patient white count normalized will need PICC line for outpatient antibiotics Dictation was produced using [employer] dictation software. please excuse any gr ammatical, word or spelling errors. Time with Patient: Less than 30
[2024-02-02] MEDS: VANCOMYCIN 1,500 MG in SODIUM CHLORIDE 0.9% 500 ML 500 ML IVPB SCH (18:59)
[2024-02-02 22:34] LABS: Glucose,Whole Blood 88 mg/dL (70-110)
--- NOTE | 2024-02-02 23:21 | CT ---
EXAMINATION TYPE: CODE STROKE: CT brain wo contr DATE OF EXAM: 02/02/2024 HISTORY: Neuro deficit, acute, stroke suspected CT DLP: 1164.4 mGycm. Automated Exposure Control for Dose Reduction was Utilized. TECHNIQUE: CT scan of the head is performed without contrast. COMPARISON: None. FINDINGS: There is no acute intracranial hemorrhage or midline shift identified. There is mild to m oderate diffuse ventricular and sulcal prominence consistent with diffuse age-related cerebral atroph y. There is mild low-attenuation in the periventricular white matter consistent with chronic small v essel ischemic change. Bilateral aphakia is seen. The visualized sinuses are clear. IMPRESSION: No acute intracranial hemorrhage or midline shift. If concern for acute stroke persist further investigation with MRI study may BE warranted
--- NOTE | 2024-02-02 23:56 | CT ---
EXAMINATION TYPE: CODE STROKE: CTA head neck DATE OF EXAM: 02/02/2024 HISTORY: Neuro deficit, acute, stroke suspected COMPARISON: NONE CT DLP: 1661.5 mGycm. Automated Exposure Control for Dose Reduction was Utilized. TECHNIQUE: CTA scan of the head and neck is performed with IV Contrast, patient injected with 65 mL of Isovue 370, axial images are obtained, coronal and sagittal reformatted images are reviewed. 3D re constructed images are created on an independent workstation and reviewed. FINDINGS: Carotid/Vascular Structures: Normal 3 vessel origin from the aortic arch. No linear hypodensity to gage ggest dissection. [id number] peripheral calcified plaque right carotid bulb extends into proxim al internal carotid artery without significant stenosis. More moderate to severe mixed plaque in the left carotid bulb extends into proximal internal carotid artery causing stenosis approaching but unde r 50% near axial image 93 series 501 . Patent external carotid arteries bilaterally. Mild peripheral calcified plaque in the distal internal carotid arteries. Patent vertebral arteries are codominant to the basilar junction. Patent anterior indicating artery is seen. No large vessel occlusion or aneury sm at the level of the [place]. Other: Bilateral aphakia is present. Slight grade 1 retrolisthesis C3 on C4 with mild to moderate dis c space narrowing. Vacuum disc phenomenon with moderate disc space narrowing at C5-C6 and C6-C7 level is seen. IMPRESSION: Moderate to severe mixed plaque left carotid bulb extends into the proximal left internal carotid artery without hemodynamically significant stenosis. No large vessel occlusion or aneurysm a t the level of the [place]. NASCET criteria was used in interpretation of this exam?
[2024-02-03] MEDS ORDERED: HEPARIN SODIUM 1,000 UN/ML (10ML VL) IV PRN (00:03)
[2024-02-03] MEDS: HEPARIN SOD,PORK IN 0.45% NACL 25,000 UNIT in 0.45% NACL 1 250ML.BAG IV SCH (01:28)
[2024-02-03 01:29] LABS: Basophils % (A) 0 %; Eosinophils # (A) 0.1 k/uL (0-0.7); Eosinophils % (A) 1 %; HCT 40.5 % (39.0-53.0); HGB 12.7 gm/dL (13.0-17.5); Lymphocytes # (A) 1.2 k/uL (1.0-4.8); Lymphocytes % (A) 11 %; MCH 29.9 pg (25.0-35.0); MCHC 31.5 g/dL (31.0-37.0); MCV 95.2 fL (80.0-100.0); Monocytes # (A) 0.4 k/uL (0-1.0); Monocytes % (A) 4 %; Neutrophils # (A) 8.5 k/uL (1.3-7.7); Neutrophils % (A) 83 %; Platelet Count 418 k/uL (150-450); RBC 4.25 m/uL (4.30-5.90); RDW 14.1 % (11.5-15.5); WBC 10.2 k/uL (3.8-10.6)
--- NOTE | 2024-02-03 11:48 | P.PN ---
Subjective Progress Note Date: 02/03/24 Principal diagnosis: Infected left foot ulcer Patient was seen and examined today as a follow-up. Patient is status post left foot I&D. He apparently also was a code stroke yesterday with concerns of some altered mental status changes. He had a brain CT with no acute findings and a CT angiogram head and neck with calcified plaque bilaterally with no hemodynamically significant stenosis. Patient is alert and oriented this morning denies any focal deficits. States that he often gets episodes where he will drift off and not be aware of his surroundings. He is currently on IV heparin drip. Patient has been afebrile. Infectious disease has ordered a PICC line placement. Objective - Vital Signs Vital signs: Vital Signs Temp 98.2 F 02/02/24 20:00 Pulse 63 02/03/24 03:47 Resp 18 02/03/24 03:47 BP 103/59 02/03/24 03:47 Pulse Ox 96 02/03/24 03:47 FiO2 Intake & Output 02/02/24 02/03/24 02/03/24 18:59 06:59 18:59 Intake Total 678 540 820 Balance 678 540 820 Intake: Oral 678 540 820 Other: Voiding Method Toilet # Voids 2 1 - Exam General appearance: The patient is alert, oriented, appears in no acute distress. HET: Head is normocephalic and atraumatic. Pupils are equal and reactive. Neck: Supple. No carotid bruit. Heart: Regular. Lungs: Equal expansion, normal respiratory effort. Abdomen: Soft, nontender, nondistended. Extremities: Normal skin color and turgor. Bilateral hand deformity/ contraction. Left third finger previous amputation. Left lower extremity swelling, left foot with dressing clean dry and intact. Neurological: No focal deficits. He is alert and oriented x 3. Speech is clear. Patient with bilateral upper and lower extremity good tone and strength. - Labs CBC & Chem 7: 02/03/24 00:36 02/01/24 05:45 Labs: Abnormal Lab Results - Last 24 Hours (Table) 02/03/24 Range/Units 00:36 RBC 4.25 L (4.30-5.90) m/uL Hgb 12.7 L (13.0-17.5) gm/dL Neutrophils # 8.5 H (1.3-7.7) k/uL Microbiology - Last 24 Hours (Table) 01/30/24 12:30 Gram Stain - Final Foot - Left Wound Culture - Final Klebsiella oxytoca Methicillin resist S. aureus 01/29/24 09:30 Anaerobic Culture - Final Foot - Left Bacteroides fragilis Assessment and Plan Assessment: 1. Altered mental status changes, code stroke called 2. Arthrosclerotic plaque in bilateral internal carotid arteries, without any hemodynamically significant stenosis 3. Infected Left foot wound/callus status post incision and drainage and callus shaving 4. 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 Patient has no hemodynamically significant carotid stenosis on CTA. TIA independently reviewed by Dr. Aguila and agrees with report. No indication for any vascular surgical intervention. 2. Continue with recommendations from neurology 3. Continue with antibiotic recommendations from infectious disease 4. Resume Eliquis 5. Patient is status post incision and drainage 6. Daily dressing change to left plantar wound, pack with iodoform, 4 x 4 and Kerlix daily 7. Patient to follow wound care instructions as recommended by wound clinic for discharge with absorptive silver roping 8. Recommend outpatient wound care Thank you for this consultation. Patient is cleared for discharge from vascular surgery. We will sign off at this time. The impression and plan of care has been dictated as directed. Dr. Aguila I performed a history and examination of this patient, discussed the same with the dictator. I agree with the dictator's note ,documented as a scribe. Any additional findings or plans will be noted.
[2024-02-03] MEDS: ERTAPENEM 1 GM in SODIUM CHLORIDE 0.9% 50 ML IVPB SCH (12:19)
[2024-02-03] MEDS: DAPTOmycin 500 MG in SODIUM CHLORIDE 0.9% 50 ML IVPB SCH (12:19)
--- NOTE | 2024-02-03 13:24 | P.CNNES ---
History of Present Illness Consult date: 02/03/24 Requesting physician: Lani Newberry Reason for Consult: possible stroke History of Present Illness: This is a 73-year-old gentleman with history of leprosy, neuropathy, TIA, who was in the hospital being treated for cellulitis of the lower extremity. Neurology is consulted for possible stroke. It seems that yesterday at nighttime according to the nurse he had episode of facial droop and dysarthria. Seems a code stroke was activated and patient had CTA and CT angiography of the head and neck. The CT of the head is unremarkable for any acute or subacute stroke. CT angiography shows moderate to severe left carotid plaque extends into the proximal left ICA without hemodynamically significant stenosis. Patient states that his symptoms has resolved within 5 minutes upon being evaluated by the nurse and I assume no IV thrombolytics since his symptoms has improved. Patient does states he does have underlying history of TIAs in the past. It seems the patient upon reading the reports has history of pulmonary embolism and that is why he is on Eliquis. Upon reading the report patient denies any A- fib and upon asking him he was inconsistent with answers. Note patient stated that he has leprosy disease after further investigation as an outpatient. Unsure how he contracted it. He stated that that he visited [place] and he is unsure if he was exposed to arm[place]illo. Resolved he has contracture of the hand fingers and has atrophy of the upper extremity distally. He does have numbness tingling in the distal upper and lower extremities. Please he was told he has sarcoidosis but after further investigation he was told that he has leprosy. Some of the workup during this hospital visit consisted of: I reviewed the lab workup. CT of the head was reported as no acute intracranial hemorrhage or midline shift. I personally reviewed and CT head and agree with the report. CT angiography head and neck is reported as moderate to severe mixed plaque left carotid bulb extends to the proximal left ICA without hemodynamic significant stenosis. No large vessel occlusion or aneurysm at the level of [place]. Review of Systems Review of system: The 12 point system was reviewed and apparent positive and negative per HPI. Past Medical History Past Medical History: Osteoarthritis (OA) Additional Past Medical History / Comment(s): sarcoidosis. pt takes eliquis but denies afib,Leprosy History of Any Multi-Drug Resistant Organisms: MRSA Date of last positivie culture/infection: 01/30/24 MDRO Source:: Left Foot Past Surgical History: Hernia Repair Additional Past Surgical History / Comment(s): Bilateral Hernia Repair, cataracts Past Anesthesia/Blood Transfusion Reactions: No Reported Reaction Past Psychological History: No Psychological Hx Reported Smoking Status: Former smoker Past Alcohol Use History: None Reported Past Drug Use History: None Reported - Past Family History Father Family Medical History: Congestive Heart Failure (CHF) Mother Family Medical History: Congestive Heart Failure (CHF) Medications and Allergies Home Medications Medication Instructions Recorded Confirmed Type Apixaban [Eliquis] 5 mg PO BID 08/22/21 01/27/24 History Metoprolol Succinate [Toprol XL] 25 mg PO HS 08/22/21 01/27/24 History Gabapentin 300 mg PO HS 05/16/23 01/27/24 History predniSONE 10 mg PO DAILY 05/16/23 01/27/24 History Amitriptyline HCl [Elavil] 10 mg PO DIRECTED 10/07/23 01/27/24 History Ergocalciferol (Vitamin D2) 1,250 mcg PO DIRECTED 10/07/23 01/27/24 History [Drisdol (50,000 Iu)] Folic Acid 1 mg PO SUMOTUWEFRSA 10/07/23 01/27/24 History Moxifloxacin HCl [Avelox] 400 mg PO Q30D 10/07/23 01/27/24 History Rifabutin 300 mg PO Q30D 10/07/23 01/27/24 History metHOTREXate sodium [Methotrexate] 17.5 mg PO TH 10/07/23 01/27/24 History Aspirin EC [Ecotrin Low Dose] 81 mg PO DAILY 01/16/24 01/27/24 History Levothyroxine Sodium [Synthroid] 50 mcg PO DAILY 01/16/24 01/27/24 History Minocycline HCl [Minocin] 100 mg PO Q30D 01/16/24 01/27/24 History Mupirocin 2% Oint [Bactroban 2% 1 applic TOPICAL TID #22 gm 01/16/24 01/27/24 Rx Oint] Allergies Allergy/AdvReac Type Severity Reaction Status Date / Time No Known Allergies Allergy Verified 01/16/24 11:54 Physical Examination - Vital Signs Vital Signs: Vital Signs Temp Pulse Pulse Pulse Resp BP BP 02/03/24 08:00 97.4 F L 63 18 108/58 02/03/24 03:47 63 18 103/59 02/02/24 22:30 70 18 133/70 02/02/24 21:26 70 02/02/24 21:25 70 02/02/24 20:00 98.2 F 66 16 99/82 02/02/24 14:40 97.5 F L 70 BP Pulse Ox 02/03/24 08:00 96 02/03/24 03:47 96 02/02/24 22:30 97 02/02/24 21:26 112/73 02/02/24 21:25 02/02/24 20:00 99 02/02/24 14:40 101/64 99 Intake and Output 02/02/24 02/03/24 02/03/24 22:59 06:59 14:59 Intake Total 220 540 820 Balance 220 540 820 Intake: Oral 220 540 820 Other: Voiding Method Toilet Toilet # Voids 2 1 GENERAL: The patient is lying in bed and is not in acute distress. NEUROLOGICAL: Higher mental function: The patient is awake, alert, oriented to self, place and time. Patient is following commands. No aphasia and no neglect. Cranial nerves: The pupils are round, equal and reactive to light and accommodation. Visual floyd are full to confrontation throughout. Extraocular movement is intact no nystagmus is noted. Facial sensation is normal to touch throughout. The facial strength is normal throughout. Hearing is normal bilaterally to hand rub. Tongue is midline and moved [id number] without any difficulty. No dysarthria is noted. Shoulder shrug is normal bilaterally. Motor: Gait is normal. The strength is limited in distal bilateral uppers bec ause of contracture (old). Otherwise, 5 over 5 throughout. He had left lower distal extremity wrapped. Has atrophy of bilateral distal upper extremities. Cerebellum: Normal finger to nose bilaterally. Sensation: Sensation is normal to touch throughout. Reflexes (right/left): 1+ throughout. Plantars is mute on the right.. Results - Laboratory Findings CBC and BMP: 02/03/24 00:36 02/01/24 05:45 Abnormal Lab Findings: Abnormal Labs 01/27/24 01/27/24 01/27/24 16:52 16:52 16:52 WBC 14.7 H RBC 4.19 L Hgb 12.5 L Hct MCHC Immature Gran # Neutrophils # 12.0 H ESR INR 1.2 H APTT 30.8 H Sodium 135 L Chloride Carbon Dioxide BUN 23 H Creatinine BUN/Creatinine Ratio Glucose 128 H Calcium 8.2 L C-Reactive Protein Albumin 3.1 L 01/28/24 01/28/24 01/29/24 10:46 10:46 08:02 WBC 11.3 H RBC Hgb Hct MCHC 30.9 L Immature Gran # Neutrophils # 9.4 H ESR INR APTT Sodium 136 L Chloride 109 H 108 H Carbon Dioxide 21 L BUN Creatinine 0.63 L BUN/Creatinine Ratio Glucose 108 H Calcium 8.1 L 7.6 L C-Reactive Protein Albumin 2.9 L 01/29/24 01/30/24 01/30/24 08:02 06:15 06:15 WBC 10.42 H RBC 3.43 L 3.68 L Hgb 10.2 L 10.8 L Hct 32.1 L 34.1 L MCHC 31.8 L 31.7 L Immature Gran # 0.05 H 0.06 H Neutrophils # 8.21 H ESR 54 H INR APTT Sodium Chloride Carbon Dioxide BUN Creatinine BUN/Creatinine Ratio Glucose Calcium 8.3 L C-Reactive Protein 7.50 H Albumin 01/31/24 01/31/24 02/01/24 06:00 06:00 05:45 WBC 12.19 H RBC 3.80 L 3.60 L Hgb 11.3 L 10.7 L Hct 35.6 L 33.5 L MCHC 31.7 L 31.9 L Immature Gran # 0.07 H 0.06 H Neutrophils # 9.53 H ESR INR APTT Sodium Chloride 109 H Carbon Dioxide BUN Creatinine BUN/Creatinine Ratio Glucose 102 H Calcium 8.3 L C-Reactive Protein Albumin 02/01/24 02/03/24 05:45 00:36 WBC RBC 4.25 L Hgb 12.7 L Hct MCHC Immature Gran # Neutrophils # 8.5 H ESR INR APTT Sodium Chloride Carbon Dioxide BUN Creatinine BUN/Creatinine Ratio 21.86 H Glucose Calcium C-Reactive Protein Albumin Assessment and Plan Assessment: This is a 73-year-old gentleman with history of leprosy, bilateral hand contracture and has neuropathy who is being treated for left lower extremity distally cellulitis. On 02/02/2020 4 at night he stated that he had an episode of slurred speech. Per the nurse she had slurred speech and facial droop and according the patient lasted only 5 minutes. Transient episode of dysarthria and facial droop. Later he notified vascular surgery team he had episode of confusion : Probable TIA. History of TIA (it seems he had episode of confusion) Left carotid/ICA plaque is moderate to severe without any hemodynamic significant stenosis Left upper extremity cellulitis Pugh's disease Peripheral neuropathy is secondary due to Pugh's disease History of Pulmonary embolism Plan: I ordered MRI Brain, 2D echo, lipid panel Patient is restarted on his home eliquis 5mg bid. Also is on ASA 81mg daily. Hold off starting statin since there is interaction with his Pugh's disease me dication. Vascular surgery team is consulted for the left carotid ICA plaque and they stated there is no significant hemodynamic stenosis no intervention. Ordered routine EEG. Patient had a recent TSH at the beginning of this month which was normal therefore I will not pursue a TSH. I will order ammonia level, vitamin B12 folate Continue neurochecks Cardiac monitoring Consulted PT and OT Will defer the rest of the medical management for primary team and other specialists Prophylaxis the patient is on Eliquis The plan is discussed with the patient, his nurse and AUDIO VISUAL DIRECTOR from vascular surgery team Thank for the consultation Time with Patient: Greater than 30
--- NOTE | 2024-02-03 14:30 | XR ---
EXAMINATION TYPE: XR chest 1V portable DATE OF EXAM: 02/03/2024 2:07 PM CLINICAL INDICATION:Male, 73 years old with history of PICC placement; [facility] COMPARISON: Chest radiographs from 07/01/2018 TECHNIQUE: XR chest 1V portable Frontal view of the chest. FINDINGS: Lungs/Pleura: There is no evidence of pleural effusion, focal consolidation, or pneumothorax. Pulmonary vascularity: Unremarkable. Heart/mediastinum: Cardiomediastinal silhouette is unremarkable. Musculoskeletal: No acute osseous pathology. Other findings: None Lines/Tubes: Right-sided PICC line with distal tip at the cavoatrial junction. IMPRESSION: No acute cardiopulmonary disease/process.
[2024-02-03 15:37] LABS: Chol/HDL Ratio 2.92 Ratio; LDL Cholesterol,Calculated 73.1 mg/dL (0.0-131.0)
[2024-02-03] MEDS: APIXABAN 5 MG TAB PO SCH (21:41)
--- NOTE | 2024-02-03 21:52 | EEG ---
ELECTROENCEPHALOGRAM REPORT CLINICAL HISTORY: This is a 73-year-old gentleman with altered mental status. The video EEG is obtained to evaluate for seizure epileptiform activity. RELEVANT MEDICATION: Gabapentin. EEG TYPE: This is a routine 21-channel EEG with video using the 10/20 electrode placement system. DESCRIPTION: Wakefulness and drowsiness are obtained. During awake state, the posterior-dominant rhythm consists of [id number]-bw-avnuwvda voltage of 8.5 to 9 hertz activity that is well modulated and well sustained. There is no physiological stage 2 sleep architecture. There is no focal slowing. Interictal and ictal is none. ACTIVATION PROCEDURE: Photic stimulation did not evoke a posterior driving response. There is no abnormality during the photic stimulation. Hyperventilation is not performed. CLINICAL INTERPRETATION: This is a normal routine EEG. There is no focal slowing, epileptiform discharge, or seizure on the EEG. A normal routine EEG does not rule out underlying epilepsy. Clinical correlation is recommended. SANDRA / GRETA: [id number] /
[2024-02-03 22:56] LABS: Glucose,Whole Blood 120 mg/dL (70-110)
--- NOTE | 2024-02-04 08:05 | P.PN ---
Subjective Progress Note Date: 02/03/24 Principal diagnosis: Reason for follow-up is left foot cellulitis and infected callus Patient is a 73-year-old male with a past medical history significant for osteoarthritis sarcoidosis history of MRSA infection involving his left second finger,Pt presenting to the hospital for evaluation of left foot infection, patient was noticed to have infected callus on the left foot with secondary cellulitis. On today's evaluation 02/03/2024,the patient remains to be afebrile, patient is on room air not requiring supplemental oxygen and denies any shortness of breath no chest pain or cough.Patient denies having any nausea or vomiting, no abdominal pain and no diarrhea has been reported, patient did have some neurological symptoms suspicious for TIA for the patient has been transferred to telemetry unit. Patient white count is 10.2 Objective - Vital Signs Vital signs: Vital Signs Temp 97.4 F L 02/03/24 08:00 Pulse 63 02/03/24 08:00 Resp 18 02/03/24 08:00 BP 108/58 02/03/24 08:00 Pulse Ox 96 02/03/24 08:00 FiO2 Intake & Output 02/02/24 02/03/24 02/03/24 18:59 06:59 18:59 Intake Total 678 540 820 Balance 678 540 820 Intake: Oral 678 540 820 Other: Voiding Method Toilet Toilet # Voids 2 1 - Exam GENERAL DESCRIPTION: An elderly male lying in bed in no distress RESPIRATORY SYSTEM: Unlabored breathing , decreased breath sounds at bases HEART: S1 S2 regular rate and rhythm , ABDOMEN: Soft , no tenderness EXTREMITIES: Left foot is currently dressed - Labs CBC & Chem 7: 02/03/24 00:36 02/01/24 05:45 Labs: Abnormal Lab Results - Last 24 Hours (Table) 02/03/24 Range/Units 00:36 RBC 4.25 L (4.30-5.90) m/uL Hgb 12.7 L (13.0-17.5) gm/dL Neutrophils # 8.5 H (1.3-7.7) k/uL Microbiology - Last 24 Hours (Table) 01/30/24 12:30 Gram Stain - Final Foot - Left Wound Culture - Final Klebsiella oxytoca Methicillin resist S. aureus 01/29/24 09:30 Anaerobic Culture - Final Foot - Left Bacteroides fragilis Assessment and Plan (1) Cellulitis of left foot Current Visit: Yes Status: Acute Code(s): L03.116 - CELLULITIS OF LEFT LOWER LIMB SNOMED Code(s): 87472659833627612 (2) Foot ulcer, left Current Visit: Yes Status: Acute Code(s): L97.529 - NON-PRESSURE CHRONIC ULCER OTH PRT LEFT FOOT W UNSP SEVERITY SNOMED Code(s): 735687685 Plan: 1patient presented to the hospital with left foot swelling redness and drainage in this patient who did have a callus on the plantar aspect of the left foot at the base of the second metatarsal with associated increasing swelling and redness of the second metatarsal concerning for infected callus and possible osteomyelitis 2 patient is s/p bedside drainage of the left foot abscess and deep culture which are currently growing Klebsiella and present MRSA 3-patient has decided to go to outpatient infusion clinic for his outpatient IV antibiotics antibiotic has been adjusted to daptomycin and Invanz for daily dosing question concern has been answered Dictation was produced using silkfred dictation software. please excuse any grammatical, word or spelling errors. Time with Patient: Less than 30
--- NOTE | 2024-02-04 08:27 | P.PN ---
Subjective Progress Note Date: 02/04/24 Principal diagnosis: Infected left foot ulcer Patient was seen and examined today as a follow-up. Today he had a PICC line placed. He is currently sitting up eating his breakfast. He denies any focal deficits. He is being followed by neurology for reported altered mental status changes and code stroke that was called 2 nights ago. Patient had normal EEG. He is awaiting MRI of the brain. CT angiogram head and neck are reviewed with no hemodynamically significant stenosis bilaterally. This was discussed with patient. Objective - Vital Signs Vital signs: Vital Signs Temp 98.2 F 02/03/24 20:00 Pulse 79 02/04/24 04:00 Resp 18 02/04/24 04:00 BP 93/50 02/04/24 04:00 Pulse Ox 100 02/04/24 04:00 FiO2 Intake & Output 02/03/24 02/04/24 02/04/24 18:59 06:59 18:59 Intake Total 1158 264 Balance 1158 264 Weight 77.882 kg Intake: Oral 1158 264 Other: Voiding Method Toilet Toilet # Voids 2 1 - Exam General appearance: The patient is alert, oriented, appears in no acute distress. HET: Head is normocephalic and atraumatic. Pupils are equal and reactive. Neck: Supple. No carotid bruit. Heart: Regular. Lungs: Equal expansion, normal respiratory effort. Abdomen: Soft, nontender, nondistended. Extremities: Normal skin color and turgor. Bilateral hand deformity/contraction. Left third finger previous amputation. Left lower extremity swelling, left foot with dressing clean dry and intact. Neurological: No focal deficits. He is alert and oriented x 3. Speech is clear. Patient with bilateral upper and lower extremity good tone and strength. - Labs CBC & Chem 7: 02/03/24 00:36 02/01/24 05:45 Labs: Abnormal Lab Results - Last 24 Hours (Table) 02/03/24 Range/Units 22:54 POC Glucose (mg/dL) 120 H (70-110) mg/dL Microbiology - Last 24 Hours (Table) 01/30/24 12:30 Anaerobic Culture - Final Foot - Left 01/30/24 12:30 Gram Stain - Final Foot - Left Wound Culture - Final Klebsiella oxytoca Methicillin resist S. aureus Assessment and Plan Assessment: 1. Altered mental status changes, code stroke called 2. Arthrosclerotic plaque in bilateral internal carotid arteries, without any hemodynamically significant stenosis 3. Infected Left foot wound/callus status post incision and drainage and callus shaving 4. 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 Patient has no hemodynamically significant carotid stenosis on CTA. TIA independently reviewed by Dr. Aguila and agrees with report. No indication for any vascular surgical intervention. Findings discussed with patient. 2. Continue with recommendations from neurology 3. Continue with antibiotic recommendations from infectious disease 4. Resume Eliquis 5. Patient is status post incision and drainage 6. Daily dressing change to left plantar wound, pack with iodoform, 4 x 4 and Kerlix daily 7. Patient to follow wound care instructions as recommended by wound clinic for discharge with absorptive silver roping 8. Recommend outpatient wound care Thank you for this consultation. Patient is cleared for discharge from vascular surgery. We will sign off at this time. The impression and plan of care has been dictated as directed. Dr. Aguila I performed a history and examination of this patient, discussed the same with the dictator. I agree with the dictator's note ,documented as a scribe. Any additional findings or plans will be noted.
[2024-02-04 11:10] LABS: Basophils % (A) 0 %; Eosinophils # (A) 0.1 k/uL (0-0.7); Eosinophils % (A) 2 %; HCT 37.4 % (39.0-53.0); HGB 11.7 gm/dL (13.0-17.5); Lymphocytes # (A) 1.3 k/uL (1.0-4.8); Lymphocytes % (A) 15 %; MCH 29.6 pg (25.0-35.0); MCHC 31.4 g/dL (31.0-37.0); MCV 94.3 fL (80.0-100.0); Mean Platelet Volume 7.6; Monocytes # (A) 0.7 k/uL (0-1.0); Monocytes % (A) 8 %; Neutrophils # (A) 6.5 k/uL (1.3-7.7); Neutrophils % (A) 74 %; Platelet Count 463 k/uL (150-450); RBC 3.97 m/uL (4.30-5.90); RDW 14.4 % (11.5-15.5); WBC 8.8 k/uL (3.8-10.6)
[2024-02-04 11:33] LABS: African American GFR (CKD) >90 (>60 ml/min/1.73 sqM); Non-African American GFR(CKD) >90 (>60 ml/min/1.73 sqM)
--- NOTE | 2024-02-04 13:37 | MR ---
EXAMINATION TYPE: MR brain wo con DATE OF EXAM: 02/04/2024 COMPARISON: 02/02/2024 CT brain HISTORY: Episode of slurred speech, evaluate for TIA. CONTRAST: None TECHNIQUE: Multiplanar, multiecho imaging on a 3.0 Chloe magnet is performed through the brain. Stud y is performed within 24 hours of arrival to the hospital. The craniovertebral junction is normal. The pituitary is normal. Optic chiasm normal. Diffusion-weighted imaging is performed. No abnormal hyperintensity is present to suggest an acute i ntracranial infarct or acute ischemic change. There are scattered punctate areas of hyperintensity on T2 and Inversion Recovery weighted sequences which are non-specific but can be related to microvascular ischemic changes. Ventricles and sulci are appropriate for the patient age. IMPRESSION: 1. No acute intracranial process.
--- NOTE | 2024-02-04 14:21 | CA ---
Transthoracic Echo Report Name: Bc Frias Age: 73 Gender: M : 1950 Exam Date: 02/04/2024 09:07 Exam Location: [facility] Ht (in): 74 Wt (lb): 180 Ordering Physician: Jalil Earl MD Attending/Referring Phys: [employer] Teacher Estefani Smiley RDCS Procedure CPT: Indications: stroke Cardiac Hx: Technical Quality: Good Contrast 1: Agitated Saline Total Dose (mL): 10 Contrast 2: Total Dose (mL): MEASUREMENTS (Male / Female) Normal Values 2D ECHO LV Diastolic Diameter PLAX 5.5 cm 4.2 - 5.9 / 3.9 - 5.3 cm LV Systolic Diameter PLAX 4.0 cm IVS Diastolic Thickness 0.9 cm 0.6 - 1.0 / 0.6 - 0.9 cm LVPW Diastolic Thickness 1.0 cm 0.6 - 1.0 / 0.6 - 0.9 cm LV Relative Wall Thickness 0.3 RV Internal Dim ED PLAX 3.0 cm LVOT Diameter 2.2 cm LV Diastolic Volume MOD BP 139.9 cm??? 67 - 155 / 56 - 104 cm??? LV Systolic Volume MOD BP 67.0 cm??? 22 - 58 / 19 - 49 cm??? LV Ejection Fraction MOD BP 52.1 % >= 55 % LV Cardiac Index MOD BP 2472.4 cm???/min???m??? LV Diastolic Volume MOD 4C 140.1 cm??? LV Systolic Volume MOD 4C 70.0 cm??? LV Ejection Fraction MOD 4C 50.0 % LV Cardiac Index MOD 4C 2378.2 cm???/min???m??? LV Diastolic Length 4C 8.9 cm LV Systolic Length 4C 7.9 cm LV Diastolic Volume MOD 2C 138.4 cm??? LV Systolic Volume MOD 2C 60.0 cm??? LV Ejection Fraction MOD 2C 56.7 % LV Cardiac Index MOD 2C 2659.1 cm???/min???m??? LV Diastolic Length 2C 8.8 cm LV Systolic Length 2C 7.4 cm LA Volume 84.4 cm??? 18 - 58 / 22 - 52 cm??? LA Volume Index 40.9 cm???/m??? 16 - 28 cm???/m??? Ascending Aorta Diameter 3.7 cm DOPPLER AV Peak Velocity 127.8 cm/s AV Peak Gradient 6.5 mmHg AV Mean Velocity 96.7 cm/s AV Mean Gradient 4.0 mmHg AV Velocity Time Integral 26.9 cm LVOT Peak Velocity 102.0 cm/s LVOT Peak Gradient 4.2 mmHg LVOT Velocity Time Integral 20.0 cm LVOT Stroke Volume 74.5 cm??? LVOT Stroke Volume Index 35.8 ml/m??? LVOT Cardiac Index 2525.5 cm???/min???m??? AV Area Cont Eq vti 2.8 cm??? AV Area Cont Eq pk 3.0 cm??? MV Area PHT 3.6 cm??? Mitral E Point Velocity 31.5 cm/s Mitral A Point Velocity 43.3 cm/s Mitral E to A Ratio 0.7 MV Deceleration Time 210.8 ms TR Peak Velocity 226.8 cm/s TR Peak Gradient 20.6 mmHg PV Peak Velocity 86.1 cm/s PV Peak Gradient 3.0 mmHg FINDINGS Left Ventricle Left ventricular ejection fraction is estimated at 55-60 %. Normal average global longitudinal strain of the left ventricle with a value of - 18%. Left ventricular cavity size normal. Mildly increased left ventricular systolic volume. Mildly decreased left ventricular ejection fraction. No obvious regional wall motion abnormalities. Negative bubble study. Right Ventricle Normal right ventricular size and function. Right Atrium Moderate right atrial dilatation. Left Atrium Severely increased left atrial volume. Mildly increased left atrial area. Mitral Valve Structurally normal mitral valve. No evidence for mitral valve prolapse. No mitral stenosis. Mild mitral regurgitation. Aortic Valve Trileaflet aortic valve. No aortic valve stenosis or regurgitation. Tricuspid Valve Structurally normal tricuspid valve. No tricuspid stenosis. Mild tricuspid regurgitation. Pulmonic Valve Structurally normal pulmonic valve. No pulmonic stenosis. Trace pulmonic regurgitation. Pericardium No pericardial effusion. Aorta Normal size aortic root and proximal ascending aorta. CONCLUSIONS Normal left ventricular ejection fraction 55-60% Mild increased left ventricular wall thickness Moderately dilated right and left atrium Mild mitral regurgitation Mild tricuspid regurgitation No PFO, negative bubble study Previewed by: Dr. Justino Brambila DO (Electronically Signed) Final Date: 04 Feb 2024 14:20
--- NOTE | 2024-02-04 15:13 | P.PN ---
Subjective Progress Note Date: 02/04/24 I am following up with the patient and it seems overnight he had another episode of blank stares with facial droop that episode resolved. The episode resolved. During that time I was told that his sugar was normal Today patient has not had any further blanks or episodes. According to the patient he had episodes like this in the past and his was concerned about seizures. Objective - Vital Signs Vital signs: Vital Signs Temp 98.4 F 02/04/24 08:30 Pulse 69 02/04/24 11:18 Resp 17 02/04/24 11:18 BP 101/55 02/04/24 11:18 Pulse Ox 99 02/04/24 11:18 FiO2 Intake & Output 02/03/24 02/04/24 02/04/24 18:59 06:59 18:59 Intake Total 6959 756 8487 Balance 1523 011 2819 Weight 77.882 kg Intake: Oral 5973 627 2174 Other: Voiding Method Toilet Toilet Toilet # Voids 2 1 2 - Exam GENERAL: The patient is lying in bed and is not in acute distress. NEUROLOGICAL: Higher mental function: The patient is awake, alert, oriented to self, place and time. Patient is following commands. No aphasia and no neglect. Cranial nerves: The pupils are round, equal and reactive to light and accommodation. Visual floyd are full to confrontation throughout. Extraocular movement is intact no nystagmus is noted. Facial sensation is normal to touch throughout. The facial strength is normal throughout. Hearing is normal bilaterally to hand rub. Tongue is midline and moved [id number] without any difficulty. No dysarthria is noted. Shoulder shrug is normal bilaterally. Motor: Gait is normal. The strength is limited in distal bilateral uppers because of contracture (old). Otherwise, 5 over 5 throughout. He had left lower distal extremity wrapped. Has atrophy of bilateral distal upper extremities. Cerebellum: Normal finger to nose bilaterally. Sensation: Sensation is normal to touch throughout. Reflexes (right/left): 1+ throughout. Plantars is mute on the right.. Some of the workup during this hospital visit consisted of: Panel is triglyceride 128, cholesterol is 150, LDL 73 and HDL is 51 Vitamin B12 is 458 Serum folate is 10.70 Ammonia level is less than 9 I reviewed the lab workup. CT of the head was reported as no acute intracranial hemorrhage or midline shift. I personally reviewed and CT head and agree with the report. CT angiography head and neck is reported as moderate to severe mixed plaque left carotid bulb extends to the proximal left ICA without hemodynamic significant stenosis. No large vessel occlusion or aneurysm at the level of makah of Ocasio. Routine EEG is normal. MRI of the brain reported as no acute intracranial process. Personally reviewed the MRI and agree with the report 2D echo was reported as normal left ventricular ejection fraction of 55 to 60%. Mild increased left ventricular wall thickness. Moderately dilated right and left atrium. - Labs CBC & Chem 7: 02/04/24 10:11 02/04/24 10:11 Labs: Abnormal Lab Results - Last 24 Hours (Table) 02/03/24 02/04/24 Range/Units 22:54 10:11 RBC 3.97 L (4.30-5.90) m/uL Hgb 11.7 L (13.0-17.5) gm/dL Hct 37.4 L (39.0-53.0) % Plt Count 463 H (150-450) k/uL POC Glucose (mg/dL) 120 H (70-110) mg/dL Microbiology - Last 24 Hours (Table) 01/30/24 12:30 Anaerobic Culture - Final Foot - Left Assessment and Plan Assessment: This is a 73-year-old gentleman with history of leprosy, bilateral hand contracture and has neuropathy who is being treated for left lower extremity distally cellulitis. On 02/02/2020 4 at night he stated that he had an episode of slurred speech. Per the nurse she had slurred speech and facial droop and according the patient lasted only 5 minutes. Transient episode of dysarthria and facial droop with recurrent unresponsi veness. In the last two night he had two episodes: Unsure exact etiology. Possible seizure but cannot rule out seizure Probable TIA. MRI Brain and routine EEG are normal. History of episodes of confusion with blank stare and not aware of those episodes in past: Was told TIA. 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 Hold off starting statin since there is interaction with his Pugh's disease medication. Vascular surgery team is consulted for the left carotid ICA plaque and they stated there is no significant hemodynamic stenosis no intervention. I started the patient on Keppra 500mg bid because of concern of seizure and he was in agreement of starting medication. I notified him the side-effects of medication (mood and behavioral issues). Recommend a repeat EEG as outpatient and if possible obtain prolonged EEG especially during this hospital visit had episodes at night. Because of concern of seizure, per [place] DMV, he was notified to avoid driving for 6 months until no further episodes, avoid heights, swim unassisted or use heavy machinery. Patient had a recent TSH at the beginning of this month which was normal therefore I will not pursue a TSH. I will order ammonia level, vitamin B12 folate. Continue neurochecks Cardiac monitoring Consulted PT and OT Will defer the rest of the medical management for primary team and other specialists Upon discharge, recommend the patient to follow-up with neurologist as outpatient within 2 weeks. For DVT Prophylaxis the patient is on Eliquis The plan is discussed with the patient, his nurse. Time with Patient: Less than 30
[2024-02-04] MEDS: levETIRAcetam 500 MG TAB PO SCH (16:20)
--- NOTE | 2024-02-04 16:27 | P.PN ---
Subjective Progress Note Date: 02/04/24 Principal diagnosis: Reason for follow-up is left foot cellulitis and infected callus Patient is a 73-year-old male with a past medical history significant for osteoarthritis sarcoidosis history of MRSA infection involving his left second finger,Pt presenting to the hospital for evaluation of left foot infection, patient was noticed to have infected callus on the left foot with secondary cellulitis. On today's evaluation 02/04/2024, the patient continues to be afebrile, the patient is on room air and breathing comfortably, the Pt denies having any chest pain or cough, the patient denies having any abdominal pain no vomiting or any diarrhea has been reported by the nursing staff, feeling better no new symptoms. Patient white count is 8.8, creatinine 0.76 Objective - Vital Signs Vital signs: Vital Signs Temp 98.4 F 02/04/24 08:30 Pulse 69 02/04/24 11:18 Resp 17 02/04/24 11:18 BP 101/55 02/04/24 11:18 Pulse Ox 99 02/04/24 11:18 FiO2 Intake & Output 02/03/24 02/04/24 02/04/24 18:59 06:59 18:59 Intake Total 6071 423 9254 Balance 5576 652 3191 Weight 77.882 kg Intake: Oral 4412 281 7879 Other: Voiding Method Toilet Toilet Toilet # Voids 2 1 2 - Exam GENERAL DESCRIPTION: An elderly male lying in bed in no distress RESPIRATORY SYSTEM: Unlabored breathing , decreased breath sounds at bases HEART: S1 S2 regular rate and rhythm , ABDOMEN: Soft , no tenderness EXTREMITIES: Left foot is currently dressed - Labs CBC & Chem 7: 02/04/24 10:11 02/04/24 10:11 Labs: Abnormal Lab Results - Last 24 Hours (Table) 02/03/24 02/04/24 Range/Units 22:54 10:11 RBC 3.97 L (4.30-5.90) m/uL Hgb 11.7 L (13.0-17.5) gm/dL Hct 37.4 L (39.0-53.0) % Plt Count 463 H (150-450) k/uL POC Glucose (mg/dL) 120 H (70-110) mg/dL Microbiology - Last 24 Hours (Table) 01/30/24 12:30 Anaerobic Culture - Final Foot - Left Assessment and Plan (1) Cellulitis of left foot Current Visit: Yes Status: Acute Code(s): L03.116 - CELLULITIS OF LEFT LOWER LIMB SNOMED Code(s): 72531402233836915 (2) Foot ulcer, left Current Visit: Yes Status: Acute Code(s): L97.529 - NON-PRESSURE CHRONIC ULCER OTH PRT LEFT FOOT W UNSP SEVERITY SNOMED Code(s): 002886066 Plan: 1patient presented to the hospital with left foot swelling redness and drainage in this patient who did have a callus on the plantar aspect of the left foot at the base of the second metatarsal with associated increasing swelling and redness of the second metatarsal concerning for infected callus and possible osteomyelitis 2 patient is s/p bedside drainage of the left foot abscess and deep culture which are currently growing Klebsiella and present MRSA 3-patient has decided to go to outpatient infusion clinic for his outpatient IV antibiotics antibiotic has been adjusted to daptomycin and Invanz will be continued while inpatient and monitor clinical course closely questions concerns were answered Dictation was produced using [employer] dictation software. please excuse any grammatical, word or spelling errors. Time with Patient: Less than 30
--- NOTE | 2024-02-04 23:26 | P.PN ---
Subjective Progress Note Date: 02/03/24 Patient is 73-year-old white male seen at bedside after the weekend he was doing better with his debridement of his foot. He denies any fever nausea vomiting and he is under evaluation report for a PICC line and IV antibiotics for certain period of time Objective - Vital Signs Vital signs: Vital Signs Temp 98.4 F 02/04/24 08:30 Pulse 71 02/04/24 16:19 Resp 18 02/04/24 16:19 BP 101/57 02/04/24 16:19 Pulse Ox 97 02/04/24 16:19 FiO2 Intake & Output 02/03/24 02/04/24 02/04/24 18:59 06:59 18:59 Intake Total 9767 301 2856 Balance 2774 201 4646 Weight 77.882 kg Intake: Oral 3159 462 6417 Other: Voiding Method Toilet Toilet Toilet # Voids 2 1 2 - Exam GENERAL: This is a 73-year-old in no apparent distress at the time of examination. Pleasant and cooperative. HEENT: Head is atraumatic, normocephalic. Pupils are equal, round, and reactive to light. Sclerae anicteric. Conjunctivae are clear. Mucus membranes of the mouth are moist. Neck is supple. RESPIRATORY: Clear to auscultation. No wheezes, rales, or rhonchi. No use of accessory muscles. Patient maintaining oxygen saturation greater than 92%. No chest wall tenderness is noted on palpation or with deep breathing. CARDIOVASCULAR: Regular rate and rhythm. S1 and S2 noted. No systolic or diastolic murmur auscultated. No JVD noted. No S3 or S4 noted. GASTROINTESTINAL: No distention noted. Abdomen soft and round. Normal active bowel sounds auscultated x 4 quadrants. No pain or tenderness noted upon palpation. INTEGUMENTARy Left foot with ulceration mid plantar surface with local area of cellulitis.. EXTREMITIES: Contraction deformities noted in the upper extremities bilateral secondary to his chronic condition NEUROLOGIC: Cranial nerves II-XII intact. PSYCHIATRIC: Awake, alert, and oriented X 3. Appropriate affect. Intact judgement and insight. - Labs CBC & Chem 7: 02/04/24 10:11 02/04/24 10:11 Labs: Abnormal Lab Results - Last 24 Hours (Table) 05/20/24 05/21/24 Range/Units 22:54 10:11 RBC 3.97 L (4.30-5.90) m/uL Hgb 11.7 L (13.0-17.5) gm/dL Hct 37.4 L (39.0-53.0) % Plt Count 463 H (150-450) k/uL POC Glucose (mg/dL) 120 H (70-110) mg/dL Assessment and Plan (1) Cellulitis of left foot Current Visit: Yes Status: Acute Code(s): L03.116 - CELLULITIS OF LEFT LOWER LIMB SNOMED Code(s): 97699933767061403 (2) Foot ulcer, left Current Visit: Yes Status: Acute Code(s): L97.529 - NON-PRESSURE CHRONIC ULCER OTH PRT LEFT FOOT W UNSP SEVERITY SNOMED Code(s): 375460901 (3) Leprosy neuropathy Current Visit: Yes Status: Acute Code(s): A30.9 - LEPROSY, UNSPECIFIED; G63 - POLYNEUROPATHY IN DISEASES CLASSIFIED ELSEWHERE SNOMED Code(s): 486203428 (4) Non-pressure chronic ulcer of other part of left foot with muscle involvement without evidence of necrosis Current Visit: Yes Status: Acute Code(s): L97.525 - NON-PRS CHR ULC OTH PRT L FOOT WITH MSL INVL W/O EVD OF NECR SNOMED Code(s): 80877050801804903 (5) Osteomyelitis Current Visit: Yes Status: Acute Code(s): M86.9 - OSTEOMYELITIS, UNSPECIFIED SNOMED Code(s): 84580333 (6) Acquired claw hand Current Visit: No Status: Acute Code(s): M21.519 - ACQUIRED CLAWHAND, UNSPECIFIED HAND SNOMED Code(s): 358838991 (7) Pugh's disease Current Visit: No Status: Acute Code(s): A30.9 - LEPROSY, UNSPECIFIED SNOMED Code(s): 99885485 Plan: Patient continues on IV vancomycin will continue to evaluate for PICC line and discharge instructions and plan there is some questionable mental status changes and neurological changes on the weekends so he has been investigating by Dr. Vega of neurology Time with Patient: Greater than 30
--- NOTE | 2024-02-04 23:27 | P.PN ---
Subjective Progress Note Date: 02/04/24 Patient is 73-year-old white male seen at bedside after the weekend he was doing better with his debridement of his foot. He denies any fever nausea vomiting and he is under evaluation report for a PICC line and IV antibiotics for certain period of time Objective - Vital Signs Vital signs: Vital Signs Temp 98.4 F 02/04/24 08:30 Pulse 71 02/04/24 16:19 Resp 18 02/04/24 16:19 BP 101/57 02/04/24 16:19 Pulse Ox 97 02/04/24 16:19 FiO2 Intake & Output 02/04/24 02/04/24 02/05/24 06:59 18:59 06:59 Intake Total 264 2740 0 Output Total 0 Balance 264 2740 0 Weight 77.882 kg Intake: Oral 264 2740 0 Output: Urine 0 Other: Voiding Method Toilet Toilet # Voids 1 2 # Bowel Movements 0 - Exam GENERAL: This is a 73-year-old in no apparent distress at the time of examination. Pleasant and cooperative. HEENT: Head is atraumatic, normocephalic. Pupils are equal, round, and reactive to light. Sclerae anicteric. Conjunctivae are clear. Mucus membranes of the mouth are moist. Neck is supple. RESPIRATORY: Clear to auscultation. No wheezes, rales, or rhonchi. No use of accessory muscles. Patient maintaining oxygen saturation greater than 92%. No chest wall tenderness is noted on palpation or with deep breathing. CARDIOVASCULAR: Regular rate and rhythm. S1 and S2 noted. No systolic or diastolic murmur auscultated. No JVD noted. No S3 or S4 noted. GASTROINTESTINAL: No distention noted. Abdomen soft and round. Normal active bowel sounds auscultated x 4 quadrants. No pain or tenderness noted upon palpation. INTEGUMENTARy Left foot with ulceration mid plantar surface with local area of cellulitis.. EXTREMITIES: Contraction deformities noted in the upper extremities bilateral secondary to his chronic condition NEUROLOGIC: Cranial nerves II-XII intact. PSYCHIATRIC: Awake, alert, and oriented X 3. Appropriate affect. Intact judgement and insight. - Labs CBC & Chem 7: 02/04/24 10:11 02/04/24 10:11 Labs: Abnormal Lab Results - Last 24 Hours (Table) 05/21/24 Range/Units 10:11 RBC 3.97 L (4.30-5.90) m/uL Hgb 11.7 L (13.0-17.5) gm/dL Hct 37.4 L (39.0-53.0) % Plt Count 463 H (150-450) k/uL Assessment and Plan (1) Cellulitis of left foot Current Visit: Yes Status: Acute Code(s): L03.116 - CELLULITIS OF LEFT LOWER LIMB SNOMED Code(s): 93088133251641065 (2) Foot ulcer, left Current Visit: Yes Status: Acute Code(s): L97.529 - NON-PRESSURE CHRONIC ULCER OTH PRT LEFT FOOT W UNSP SEVERITY SNOMED Code(s): 343898195 (3) Leprosy neuropathy Current Visit: Yes Status: Acute Code(s): A30.9 - LEPROSY, UNSPECIFIED; G63 - POLYNEUROPATHY IN DISEASES CLASSIFIED ELSEWHERE SNOMED Code(s): 592977745 (4) Non-pressure chronic ulcer of other part of left foot with muscle involvement without evidence of necrosis Current Visit: Yes Status: Acute Code(s): L97.525 - NON-PRS CHR ULC OTH PRT L FOOT WITH MSL INVL W/O EVD OF NECR SNOMED Code(s): 62343104337583697 (5) Osteomyelitis Current Visit: Yes Status: Acute Code(s): M86.9 - OSTEOMYELITIS, UNSPECIFIED SNOMED Code(s): 64460805 (6) Acquired claw hand Current Visit: No Status: Acute Code(s): M21.519 - ACQUIRED CLAWHAND, UNSPECIFIED HAND SNOMED Code(s): 149190143 (7) Pugh's disease Current Visit: No Status: Acute Code(s): A30.9 - LEPROSY, UNSPECIFIED SNOMED Code(s): 90767500 Plan: Patient continues on IV vancomycin will continue to evaluate for PICC line and discharge instructions and plan there is some questionable mental status changes and neurological changes on the weekends so he has been investigating by Dr. Vega of neurology
[2024-02-05 09:43] VITALS: RESP 16
[2024-02-05 11:38] VITALS: BP 106/58; PULSE 75; TEMP 98.3
--- NOTE | 2024-02-05 16:38 | P.PN ---
Subjective Progress Note Date: 02/05/24 I am following up with the patient and patient has not had any further episodes of confusion and staring off or facial droop. He is tolerating the Keppra well. Objective - Vital Signs Vital signs: Vital Signs Temp 98.3 F 02/05/24 11:07 Pulse 75 02/05/24 11:07 Resp 16 02/05/24 11:07 BP 106/58 02/05/24 11:07 Pulse Ox 97 02/05/24 11:07 FiO2 Intake & Output 02/04/24 02/05/24 02/05/24 18:59 06:59 18:59 Intake Total 2740 0 478 Output Total 0 Balance 2740 0 478 Weight 77.2 kg Intake: Oral 2740 0 478 Output: Urine 0 Other: Voiding Method Toilet Toilet Toilet # Voids 2 0 2 # Bowel Movements 0 - Exam GENERAL: The patient is lying in bed and is not in acute distress. NEUROLOGICAL: Higher mental function: The patient is awake, alert, oriented to self, place and time. Patient is following commands. No aphasia and no neglect. Cranial nerves: The pupils are round, equal and reactive to light and accommodation. Visual floyd are full to confrontation throughout. Extraocular movement is intact no nystagmus is noted. Facial sensation is normal to touch throughout. The facial strength is normal throughout. Hearing is normal bilaterally to hand rub. Tongue is midline and moved [id number] without any difficulty. No dysarthria is noted. Shoulder shrug is normal bilaterally. Motor: Gait is normal. The strength is limited in distal bilateral uppers because of contracture (old). Otherwise, 5 over 5 throughout. He had left lower distal extremity wrapped. Has atrophy of bilateral distal upper extr emities. Cerebellum: Normal finger to nose bilaterally. Sensation: Sensation is normal to touch throughout. Reflexes (right/left): 1+ throughout. Plantars is mute on the right.. Some of the workup during this hospital visit consisted of: Panel is triglyceride 128, cholesterol is 150, LDL 73 and HDL is 51 Vitamin B12 is 458 Serum folate is 10.70 Ammonia level is less than 9 I reviewed the lab workup. CT of the head was reported as no acute intracranial hemorrhage or midline shift. I personally reviewed and CT head and agree with the report. CT angiography head and neck is reported as moderate to severe mixed plaque left carotid bulb extends to the proximal left ICA without hemodynamic significant stenosis. No large vessel occlusion or aneurysm at the level of [place]. Routine EEG is normal. MRI of the brain reported as no acute intracranial process. Personally reviewed the MRI and agree with the report 2D echo was reported as normal left ventricular ejection fraction of 55 to 60%. Mild increased left ventricular wall thickness. Moderately dilated right and left atrium. - Labs CBC & Chem 7: 02/04/24 10:11 02/04/24 10:11 Assessment and Plan Assessment: This is a 73-year-old gentleman with history of leprosy, bilateral hand contracture and has neuropathy who is being treated for left lower extremity distally cellulitis. On 02/02/2020 4 at night he stated that he had an episode of slurred speech. Per the nurse she had slurred speech and facial droop and according the patient lasted only 5 minutes. Transient episode of dysarthria and facial droop with recurrent unresponsive ness. In the last two night he had two episodes: Unsure exact etiology. Possible seizure since he is having recurrent episodes and I would feel unlikely TIA since on anticoagulation and antiplatelt which should help with stroke coverage. MRI Brain and routine EEG are normal. No further episode overnight since on Keppra. History of episodes of confusion with blank stare and not aware of those e pisodes in past: Was told TIA. 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 Hold off starting statin since there is interaction with his Pugh's disease medication. Vascular surgery team is consulted for the left carotid ICA plaque and they stated there is no significant hemodynamic stenosis no intervention. I started the patient on Keppra 500mg bid yesterday because of concern of seiz ure and he was in agreement of starting medication. I notified him the side- effects of medication (mood and behavioral issues). Recommend a repeat EEG as outpatient and if possible obtain prolonged EEG especially during this hospital visit had episodes at night. Because of concern of seizure, per [place] DMV, he was notified to avoid driving for 6 months until no further episodes, avoid heights, swim unassisted or use heavy machinery. Patient had a recent TSH at the beginning of this month which was normal therefore I will not pursue a TSH. I will order ammonia level, vitamin B12 folate. Continue neurochecks Cardiac monitoring Consulted PT and OT Will defer the rest of the medical management for primary team and other specialists Upon discharge, recommend the patient to follow-up with neurologist as outpatient within 2 weeks. For DVT Prophylaxis the patient is on Eliquis The plan is discussed with the patient and his friend who is at bedside. There is no further neurological work-up. Time with Patient: Less than 30
== END 2024-02-05 15:43 | disposition home health service (06) | DRG 872 ==
LOC: EC 15:55 → 6NMEDSUR 19:17 → OBSVTOIN 01-29 08:03 → 6NMEDSUR 02-02 00:10 → 3SCARD 02-03 01:30
PROVIDERS: ADMIT Family Medicine; ATTEND Family Medicine
PROC: 0J9Q0ZZ Drainage of Right Foot Subcutaneous Tissue and Fascia, Open Approach (ICD-10-PCS; principal; 2024-01-30)
PROC: 4A10X4Z Monitoring of Central Nervous Electrical Activity, External Approach (ICD-10-PCS; 2024-02-03)
DX: A40.9 Streptococcal sepsis, unspecified (principal); L02.612 Cutaneous abscess of left foot; L03.116 Cellulitis of left lower limb; L97.525 Non-pressure chronic ulcer of other part of left foot with muscle involvement without evidence of necrosis; L03.114 Cellulitis of left upper limb; M86.8X7 Other osteomyelitis, ankle and foot; F17.210 Nicotine dependence, cigarettes, uncomplicated; S91.312A Laceration without foreign body, left foot, initial encounter; Z79.631 Long term (current) use of antimetabolite agent; Z86.14 Personal history of Methicillin resistant Staphylococcus aureus infection; G63 Polyneuropathy in diseases classified elsewhere; D86.9 Sarcoidosis, unspecified; E11.621 Type 2 diabetes mellitus with foot ulcer; E11.622 Type 2 diabetes mellitus with other skin ulcer; E11.69 Type 2 diabetes mellitus with other specified complication; I10 Essential (primary) hypertension; I65.23 Occlusion and stenosis of bilateral carotid arteries; L84 Corns and callosities; M19.90 Unspecified osteoarthritis, unspecified site; R29.810 Facial weakness; Z79.01 Long term (current) use of anticoagulants; Z79.82 Long term (current) use of aspirin; Z79.890 Hormone replacement therapy; Z82.49 Family history of ischemic heart disease and other diseases of the circulatory system; Z86.711 Personal history of pulmonary embolism; I08.1 Rheumatic disorders of both mitral and tricuspid valves; Z86.73 Personal history of transient ischemic attack (TIA), and cerebral infarction without residual deficits
CPT/HCPCS: 36410; 36415; 36573; 70450; 70496; 70498; 70551; 71045; 76937; 80048; 80053; 80061; 80202; 82140; 82565; 82607; 82746; 83735; 84100; 85025; 85610; 85652; 85730; 86140; 87040; 87070; 87075; 87077; 87186; 87205; 93306; 95816; 96361; 96365; 96366; 96367; 96375; 99285

== ENCOUNTER → 2024-10-07 | Outpatient (CLI) | payer MEDICARE ==
[2024-10-07 15:49] LABS: Prealbumin 11.7 mg/dL (18.0-42.0)
[2024-10-07 19:38] LABS: ALT 7 U/L (10-49); AST 19 U/L (14-35); Albumin 3.7 g/dL (3.8-4.9); Albumin/Globulin Ratio 1.12 Ratio (1.60-3.17); Alkaline Phosphatase 62 U/L (41-126); BUN/Creat Ratio 13.33 Ratio (12.00-20.00); Carbon Dioxide 26.2 mmol/L (21.6-31.8); Chloride 103 mmol/L (96-109); Globulin 3.3 g/dL (1.6-3.3); Glucose 106 mg/dL (70-110); Potassium 4.3 mmol/L (3.5-5.5); Sodium 139 mmol/L (135-145); Total Bilirubin <0.2 mg/dL (0.3-1.2)
== END | disposition home or self-care (01) ==
LOC: LABWHC1 11:00
PROVIDERS: ATTEND Thoracic Surgery (Cardiothoracic Vascular Surgery)
DX: G62.9 Polyneuropathy, unspecified (principal); A30 Leprosy [Hansen's disease]; L97.512 Non-pressure chronic ulcer of other part of right foot with fat layer exposed; L97.524 Non-pressure chronic ulcer of other part of left foot with necrosis of bone
CPT/HCPCS: 36415; 80053; 83036; 84134; 85652; 86140

== ENCOUNTER → 2024-10-07 | Outpatient (CLI) | payer MEDICARE ==
--- NOTE | 2024-10-07 09:45 | US ---
EXAMINATION TYPE: US arterial LE single level DATE OF EXAM: 10/07/2024 9:22 AM COMPARISONS: None. CLINICAL INDICATION: Male, 74 years old with history of L97.524 NON-PRESURE CHRONIC ULCER OF OTHER PA RT OF; Wound center patient. Patient has ulcer on left lateral foot. Tingling in feet. TECHNIQUE: Systolic pressures were taken of the upper and lower extremity arteries with ankle-brachia l indices and toe brachial indices calculated bilaterally. History of: Smoker: Previous Hypertension: No Diabetic: Pt states he is a prediabetic Hyperlipidemia: No TIA/CVA: No Previous Vascular Surgery: No [place]: No Vascular Ulcers: Left Claudication: No FINDINGS: Doppler Waveforms: Right: Multiphasic Left: Multiphasic Pressure Gradients: +8 Right Brachial Artery systolic pressure: Right: 121 Left: 113 Posterior Tibial artery systolic pressure: Right: 149 Left: 151 Dorsalis Pedis artery systolic pressure: Right: 170 Left: 158 Toe artery systolic pressure: Right: CNO Left: 210 Ankle-Brachial Indices: Right: 1.40 Left: 1.31 Toe Brachial Indices: Right: CNO Left: 1.74 (Normal > 0.6; Mild 0.35 - 0.59, Moderate 0.12 - 0.34, Severe <0.12) IMPRESSION: LOLA: Right: Normal 0.9 - 1.4, Recommendation: None Left: Normal 0.9 - 1.4, Recommendation: None [facility], , 10/07/2024 9:43 AM
== END | disposition home or self-care (01) ==
LOC: RADUSWWP 08:42
PROVIDERS: ATTEND Thoracic Surgery (Cardiothoracic Vascular Surgery)
DX: L97.524 Non-pressure chronic ulcer of other part of left foot with necrosis of bone (principal); A30.9 Leprosy, unspecified; G62.9 Polyneuropathy, unspecified; L97.512 Non-pressure chronic ulcer of other part of right foot with fat layer exposed
CPT/HCPCS: 93922